=== PATIENT | male | born 1945 | race Caucasian/White ===

== ENCOUNTER → 2016-05-12 | Outpatient (CLI) | payer BC ==
[~2016-05-12] MED LIST: ALLEREST; CMDUNK; GLCPUNK; HYDUNK; LPRUNK; LPTUNK; UNABLE; VASORETIC; [UNRECOGNIZED DRUG - OTHER]
[2016-05-12 15:32] LABS: BLOOD UREA NITROGEN 14 mg/dl (7-18); BUN/CREATININE RATIO 15.8 (10-20); CARBON DIOXIDE 30 mmol/L (21-32); CHLORIDE 102 mmol/L (98-107); GLUCOSE 160 mg/dl (70-99); SODIUM 141 mmol/L (136-145)
[2016-05-13 06:09] LABS: ESTIMATED AVERAGE GLUCOSE 171 mg/dl; HA1C FLAG Normal (Normal)
== END | disposition home or self-care (01) ==
LOC: C.LABBC 12:25
PROVIDERS: ATTEND Internal Medicine
DX: E11.65 Type 2 diabetes mellitus with hyperglycemia (principal)

== ENCOUNTER → 2016-07-14 | Outpatient (CLI) | payer BC ==
[2016-07-14 16:55] LABS: CHOLESTEROL/HDL RATIO 3.3
== END | disposition home or self-care (01) ==
LOC: C.LABBC 13:29
PROVIDERS: ATTEND Internal Medicine Cardiovascular Disease
DX: E78.5 Hyperlipidemia, unspecified (principal)

== ENCOUNTER → 2016-12-02 | Outpatient (CLI) | payer BC ==
[2016-12-02 17:21] LABS: BLOOD UREA NITROGEN 15 mg/dl (7-18); BUN/CREATININE RATIO 18.7 (10-20); CALCIUM 9.3 mg/dl (8.5-10.1); CARBON DIOXIDE 30 mmol/L (21-32); CHLORIDE 102 mmol/L (98-107); CREATININE 0.82 mg/dl (0.60-1.40); GLUCOSE 132 mg/dl (70-99); POTASSIUM 4.1 mmol/L (3.5-5.1); SODIUM 139 mmol/L (136-145)
[2016-12-03 06:45] LABS: ESTIMATED AVERAGE GLUCOSE 180 mg/dl; HA1C FLAG Normal (Normal)
== END | disposition home or self-care (01) ==
LOC: C.LABBC 15:32
PROVIDERS: ATTEND Internal Medicine
DX: E11.65 Type 2 diabetes mellitus with hyperglycemia (principal); I10 Essential (primary) hypertension; N20.0 Calculus of kidney

== ENCOUNTER 2022-05-30 06:19 | Observation (INO) ==
--- NOTE | 2022-04-23 16:13 | PAT Medication Instructions ---
Medication Instructions Date of Service April 23, 2022 Home Medications Medication Instructions Recorded apixaban 5 mg tablet 5 mg PO BID #180 tabs 11/06/21 sacubitril 49 mg-valsartan 51 mg 1 tab PO BID #180 tabs 11/11/21 tablet (Entresto) pen needle, diabetic 32 gauge x #200 ea 03/04/22 5/32" (BD Ultra-Fine [place] Pen Needle) insulin degludec 100 unit/mL (3 30 unit (0.3 mL) subcut DAILY #30 04/01/22 mL) subcutaneous pen (Tresiba mL FlexTouch U-100 insulin) aspirin 81 mg chewable tablet (Aspirin Childrens) 81 mg PO QDL furosemide 20 mg tablet (Lasix) 40 mg PO QDL apixaban 5 mg tablet 5 mg PO BID sacubitril 49 mg-valsartan 51 mg tablet (Entresto) 1 tab PO BID pen needle, diabetic 32 gauge x 5/32" (BD Ultra-Fine [place] Pen Needle) triamcinolone acetonide 0.1 % topical ointment 1 applic topical DAILY PRN insulin degludec 100 unit/mL (3 mL) subcutaneous pen (Tresiba FlexTouch U-100 insulin) 30 unit (0.3 mL) subcut DAILY acetaminophen 325 mg tablet 325 mg PO QID PRN atorvastatin 40 mg tablet 40 mg PO QDL insulin glargine U-300 conc 300 unit/mL (1.5 mL) subcutaneous pen (Toujeo SoloStar U-300 Insulin) 18 unit subcut QDL liraglutide 0.6 mg/0.1 mL (18 mg/3 mL) subcutaneous pen injector (Victoza 3-Fady) 1.8 mg subcut QDL metoprolol succinate 100 mg tablet,extended release 24 hr (Toprol XL) 100 mg PO QDL Continue as directed atorvastatin 40 mg tablet 40 mg PO QDL metoprolol succinate 100 mg tablet,extended release 24 hr (Toprol XL) 100 mg PO QDL ASK your prescriber and surgeon aspirin 81 mg chewable tablet (Aspirin Childrens) 81 mg PO QDL apixaban 5 mg tablet 5 mg PO BID(in order for spinal or epidural anesthesia, Eliquis needs to be stopped 72 hours/3 days before surgery. Please check if okay with doctor that prescribes this to you) STOP taking 24 hours before surgery triamcinolone acetonide 0.1 % topical ointment 1 applic topical DAILY PRN DO NOT take the morning of surgery furosemide 20 mg tablet (Lasix) 40 mg PO QDL sacubitril 49 mg-valsartan 51 mg tablet (Entresto) 1 tab PO BID liraglutide 0.6 mg/0.1 mL (18 mg/3 mL) subcutaneous pen injector (Victoza 3-Fady) 1.8 mg subcut QDL multivitamin 1 tab PO QDL Take morning of surgery With a small sip of water, OTHERWISE NOTHING TO EAT OR DRINK AFTER MIDNIGHT: acetaminophen 325 mg tablet 325 mg PO QID PRN(if needed) Take evening before surgery acetaminophen 325 mg tablet 325 mg PO QID PRN(if needed) Insulin Dependent Diabetic Patients * Test your blood sugar the morning of surgery * If Blood Sugar is GREATER THAN 150, take HALF of your regular dose of: * If Blood Sugar is LESS THAN 150, DO NOT TAKE ANY: Other Notes If you have any questions please call us at [phone] or [phone] or [phone] or [phone]
--- NOTE | 2022-04-29 14:17 | Anesthesiology Consultation ---
Date of Service April 29, 2022 Assessment & Plan (1) Pre-op evaluation: Plan - awaiting [facility] neurology response to optimization form. - neurology consultation 02/2022 with recommendation for referral to stroke clinic for microhemorrhages, and single fiber EMG for further work-up. Case discussed in detail with Dr. Brown who advised patient to have neurology clearance prior to surgery. Optimization form completed, patient and surgeon's office made aware. - check BSG am DOS. - cardiology 04/28/22: "...CAD (coronary artery disease)-- Status post 3V CABG 04/2021 (STOCK to LAD, SVG to ramus, OM). Small RCA with mid BOARD CERTIFIED ARTS THERAPIST not bypassed. ICM/HFrEFEF 30-35% 07/2021. Permanent atrial fibrillationrate controlled, on Eliquis. Post surgical left atrial appendage clip. Moderate mitral regurgitation. Type 2 diabeteson insulin, GLP-1. Chronic venous insufficiency/venous ulcersleft GSV reflux--venaseal if recurrent ulcers...Stable from a cardiac standpoint. No recurrent anginal symptoms. No congestion on exam and appears well compensated. Lower extremity edema much improved. Long-term we discussed further optimizing heart failure regimen. He is somewhat more agreeable to adding additional medications. Recommend starting SGLT2, he wants to discuss further with endocrinology. We also again discussed starting MRA which will defer to after upcoming surgery. Patient is planning to undergo right total hip replacement in the near future with Dr. Mancia. Currently no active cardiac conditions. His risk for perioperative cardiac events is elevated but functional capacity moderate. Feel we can proceed with planned orthopedic surgery without additional cardiac testing. Okay to hold Eliquis for 72 hours prior to procedure and resume when safe from a surgical standpoint. Continue current Toprol-XL, Entresto in perioperative setting. Target euvolemia/net even fluid balance during perioperative course..." - neurology 02/19/22: "...s/p CABG (2021)...seronegative MG...denies noticing any recent muscle bulk loss...no clear fatigable weakness...patient does not believe that weakness is generally worse at the end of the day...denies symptoms suggestive of dysphagia, poor saliva control, dysarthria/dysphonia, impaired mastication, facial weakness/droop...no neuromuscular respiratory weakness symptoms, particularly orthopnea> dyspnea. Pseudobular affect is absent...does not report symptoms referable to bowel or bladder dyscontrol or syncope/presyncope/orthostatic intolerance...Mestinon with severe se for 2-3 weeks, ick with vomiting...never to retry mestinon...not typical for OMG but will further eval with SFE...refer to stroke clinic...and reported microhemorrhages while on AC + asa..." - Outpatient joint assessment: Patient is currently scheduled for inpatient pathway. If re-evaluated pending system levels during current pandemic/surgeon requests outpatient pathway, patient is not recommended candidate for outpatient joint program from anesthesia standpoint. Chart Review Chart Review: Pending: Refer to Additional Notes / Consult section and Patient seen in Pre Admission Testing Teaching & Discussion Pre-Anesthesia Teaching/Discussion Notes: Instructed NPO after midnight before surgery, except medications with 15 cc of water. Medication instructions provided according to the PAT guidelines. History Surgery Operation Date: 05/16/22 08:50 Proposed Procedures p Right Total Hip Arthroplasty - Howard Mancia MD Height/Weight Height: 5 ft 10 in Weight: 103.3 kg Allergies Allergy/AdvReac Type Severity Reaction Status Date / Time pyridostigmine Allergy Mild Vomiting Verified 04/28/22 14:30 Medications Home Medications Medication Instructions Recorded Confirmed Last Taken aspirin 81 mg chewable tablet 81 mg PO QDL 04/30/21 04/28/22 Unknown (Aspirin Childrens) furosemide 20 mg tablet (Lasix) 40 mg PO QDL 04/30/21 04/28/22 Unknown triamcinolone acetonide 0.1 % 1 applic topical DAILY PRN ud 03/04/22 04/28/22 Unknown topical ointment insulin degludec 100 unit/mL (3 30 unit (0.3 mL) subcut DAILY #30 04/01/22 04/23/22 Unknown mL) subcutaneous pen (Tresiba mL FlexTouch U-100 insulin) acetaminophen 325 mg tablet 325 mg PO QID PRN Pain 04/23/22 04/28/22 Unknown atorvastatin 40 mg tablet 40 mg PO QDL 04/23/22 04/28/22 Unknown insulin glargine U-300 conc 300 18 unit subcut QDL 04/23/22 04/28/22 Unknown unit/mL (1.5 mL) subcutaneous pen (Toujeo SoloStar U-300 Insulin) liraglutide 0.6 mg/0.1 mL (18 mg/3 1.8 mg subcut QDL 04/23/22 04/28/22 Unknown mL) subcutaneous pen injector (Victoza 3-Fady) metoprolol succinate 100 mg 100 mg PO QDL 04/23/22 04/28/22 Unknown tablet,extended release 24 hr (Toprol XL) multivitamin 1 tab PO QDL 04/23/22 04/28/22 Unknown apixaban 5 mg tablet 5 mg PO BID #60 tabs 04/29/22 04/29/22 Unknown pen needle, diabetic 32 gauge x #200 ea 04/29/22 04/29/22 Unknown " (BD Ultra-Fine Shagufta Pen Needle) sacubitril 49 mg-valsartan 51 mg 1 tab PO BID #180 tabs 04/29/22 04/29/22 Unknown tablet (Entresto) Additional Notes: *Pt is completing Toujeo supplies prior to starting Tresiba. He states will still be using Toujeo up to surgery. Past Medical History Medical History (Updated 04/30/22 @ 08:35 by Kristyn Byrd PA-C) Atrial fibrillation CAD (coronary artery disease) s/p CABG x3 with IMMANUEL clip (04/2021) Follows with Dr. Hagan Diabetic retinopathy Eye problem Pt c/o ongoing issue with his vision. states he's been worked up for myesthenia gravis & 4th nerve palsy but no official diagnosis GERD (gastroesophageal reflux disease) rare, stable per pt History of blood transfusion 2021 History of rectal abscess > 20 yrs ago Hypertension controlled, stable per pt Ischemic cardiomyopathy EF 30-35% Pulmonary hypertension mild, PASP 45-50 mmHg Sleep apnea CPAP-compliant Type 2 diabetes mellitus IDDM Venous stasis ulcer BLLE (hx) - [place] wound clinic in past 2021 Patient denies h/o stroke, seizures, heart attack, or blood clots. Exercise / Class Metabolic Activity II 4-5 Yardwork/Stairs/Walk up hill (denies chest discomfort or shortness of breath with 1 FOS) Past Family History Family History Father Prostate cancer Myocardial infarction Coronary arteriosclerosis Other Family history non-contributory No family history of adverse response to anesthesia Denies family history of Colon cancer Ovarian cancer Breast cancer Past Surgical History Surgical History (Updated 04/29/22 @ 14:33 by Kristyn Byrd PA-C) History of cardiac catheterization 02/2021 [place] > CABG History of coronary artery bypass graft x 3 04/22/2021 History of incision and drainage rectal abscess S/P tonsillectomy Past Anesthesia History No Hx of Anesthesia Complications and No Family Hx of Anesthesia Complications History of PONV No Hx of PONV and No Hx of Motion Sickness Social History Smoking Status: Never smoker Do You Dip or Chew Tobacco: No Hx Alcohol Use: Yes alcohol intake frequency: holidays/special occasions only Hx Substance Use: No substance use type: does not use Review of Systems Occasional palpitations with afib, denies associated chest discomfort, shortness of breath, dizziness, or lightheadedness. Denies change or worsening. Patient denies chest pain, shortness of breath, dyspnea on exertion, fever, chills, cough, or wheezing. Physical Exam Vital Signs Vitals BP 133/80 P 81 TEMP 98.4 SP02 100% on RA RESP 17 Physical Full cervical extension range of motion without pain TMD 3.5 finger breadths Mallampati Score 2 Dentition: multiple caps/crowns and implant upper right side; denies chipped or loose teeth, bridges Lungs: normal respiratory effort. Clear throughout to auscultation, no adventitious breath sounds Cardiac: regular rate and rhythm, no murmurs noted Carotid arteries: negative bruit bilat Lab Results Anesthesia Preop Results Results Anesthesia Widget: WBC 5.10 K/ul (4.8-10.8) 04/29/22 Hgb 12.8 g/dl (14.0-18.0) L 04/29/22 Hct 36.6 % (42.0-52.0) L 04/29/22 Plt 148 K/uL (130-400) 04/29/22 Na 139 mmol/L (136-145) 04/29/22 K 4.2 mmol/L (3.5-5.1) 04/29/22 Cl 104 mmol/L (98-107) 04/29/22 CO2 30 mmol/L (21-32) 04/29/22 BUN 23 mg/dl (6-23) 04/29/22 Creat 0.92 mg/dl (0.6-1.4) 04/29/22 Glucose Level 139 mg/dl (70-99(Fasting)) H 04/29/22 PT 12.0 Seconds (9.0-12.0) 04/29/22 PTT 31.7 Seconds (21.0-31.0) H 04/29/22 INR 1.1 (0.9-1.1) 04/29/22 HA1c 6.1 % (4.5-5.6) H 04/29/22 Blood Type O Positive 04/29/22 Antibody Screen NEGATIVE 04/29/22 Testing Electrocardiogram Date: 04/29/22 Afib, rate 87 bpm Incomplete RBBB Nonspecific ST abnormality Chest X-Ray Date: 04/29/22 Cardiac silhouette is enlarged. Prior median sternotomy with CABG. Left atrial exclusion device. Moderate right hemidiaphragmatic elevation is unchanged. No pneumothorax, pleural effusion, airspace consolidation or pulmonary edema. Spondylitic spurring of the spine. IMPRESSION: No acute process. Echocardiogram EF 30-35% Severe inferior, septal wall and anterior apical hypokinesis. Remaining segments mildly hypokinetic Borderline dilated RV Moderate mitral regurgitation Mild pulmonary hypertension, PASP 45-50 mmHg LA severely dilated Cardiac Catheterization Date: 03/04/21 LM -large caliber, no significant disease LAD -medium caliber, 100% chronic mid occlusion. Distal LAD fills via right to left collaterals. Small D1 with mild diffuse disease. Medium bifurcating D2 with 95% ostial stenosis Circumflex -large caliber, codominant, 40% mid segment stenosis, 60 to 70% disease in small distal segment. Small OM2 with 90% ostial stenosis. Medium OM 3 with 80% proximal stenosis. RCA -small caliber, codominant, 100% chronic mid segment occlusion. RV branch slowly fills the bridging collaterals. Distal RCA fills faintly via [id number]-pe-evyck collaterals. Early acute marginal provides right to left collaterals to distal LAD 1. Severe multivessel coronary artery disease -100% chronic mid LAD occlusion. Distal LAD fills via right to left colla terals. 95% ostial D2. 40% mid, 70% distal circumflex. Small OM2 90% ostial, medium OM3 80% proximal. Small, codominant RCA 100% mid chronic occlusion 2. Preserved cardiac output 3. Mild pulmonary hypertension (post capillary) 4. Elevated left-sided filling pressures (improved with antihypertensives, rate-control) With multivessel disease, diabetes, LV dysfunction recommend evaluation for CABG Other Testing MRI brain 02/19/22 No acute intracranial findings Mild senescent changes with parenchymal volume loss and presumed chronic microvascular ischemia Several microhemorrhages in the right cerebellar hemisphere and right temporal lobe, potentially sequela of coagulopathy, prior trauma or less likely cavernous malformation or cerebral amyloid angiopathy Prominent nodular gradient susceptibility in the right ambient cistern along the expected course of the right trochlea nerve, 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
--- NOTE | 2022-05-23 18:48 | History and Physical Report ---
DATE OF ADMISSION: 05/30/2022 CHIEF COMPLAINT: Right hip pain and discomfort and stiffness. HISTORY OF PRESENT ILLNESS: The patient is a 76-year-old gentleman who presents for surgical treatme nt of his right hip. He has got multiple medical comorbidities. He has a several year history of in creasing right hip pain and discomfort and stiffness and having more and more trouble getting around. No known injury. He describes lateral hip pain, groin pain, thigh pain radiating down the medial s emmy of his knee. He has taken multiple different meds without much relief. It is starting to really limit his ability to walk and getting around. He would like to have his hip fixed. He was previous ly scheduled, but had to be canceled due to the need for neurological clearance. He has seen both ca rdiology and neurology and cleared for surgery. PAST MEDICAL HISTORY: Significant for: 1. Coronary artery disease, status post CABG a year ago. 2. Atrial fibrillation. 3. Hypertension. 4. Diabetes. PAST SURGICAL HISTORY: Includes: 1. Coronary artery disease and CABG a year ago done at [facility] in [place]. 2. Tonsillectomy. 3. Unspecified incision and drainage. ALLERGIES: PYRIDOSTIGMINE. CURRENT MEDICATIONS: Include: 1. Eliquis. 2. Aspirin. 3. Atorvastatin. 4. Lasix. 5. Insulin. 6. Victoza. 7. Metoprolol. 8. Entresto. 9. Topical steroids. SOCIAL HISTORY: A 76-year-old male. He is . Does not smoke. FAMILY HISTORY: Significant for diabetes. REVIEW OF SYSTEMS: Significant for some atrial fibrillation as well as coronary artery disease, stat us post grafting. No current chest pain or shortness of breath. No history of DVT or PE. He is on Eliquis. PHYSICAL EXAMINATION: GENERAL: Shows a pleasant, elderly male. Looks to be in reasonably good health. HEENT: Benign. NECK: Supple. No lymphadenopathy. LUNGS: Clear to auscultation. HEART: Has a regular rate and rhythm. ABDOMEN: Soft, nontender, nondistended. EXTREMITIES: Grossly neurovascularly intact except as follows: Examination of the right hip reveale d patient walks with a markedly antalgic gait. Walks with a cane. Walks with the foot externally ro tated. He is about a 0.5 cm short on the right side compared to the left. He has got pain with any type of hip motion. Very limited hip motion internally. Negative straight leg raise. No knee effus ion. He is neurologically intact. X-RAYS: X-rays reveal advanced right hip DJD. He has got complete loss of superior joint space. He has got flattening of the femoral head with cystic changes on both sides of the joint. X-rays of the right knee revealed mild knee arthritis. ASSESSMENT AND PLAN: A 76-year-old male with multiple medical comorbidities including coronary arter y disease, status post coronary artery bypass grafting a year ago at [facility], sleep apnea, hyperten urszula, diabetes with advanced right hip degenerative joint disease. He has failed conservative measur es and would like to have his hip replaced. The patient has been seen by both cardiology and neurology and cleared for surgery. We are going to take him to the operating room and do right total hip replacement. The risks and benefits of procedu re were explained and he understands. He will hold his Eliquis 3 days preoperatively. We will begin Eliquis 24 hours postoperatively at a lower level. We will use insulin sliding scale coverage for h is diabetes. He is planning to be discharged to home and do outpatient therapy. Job ID: [id number]
[~2022-05-30 06:19] MED LIST changes: +ACETAMINOPHEN 500 MG TAB PO SCH; -ALLEREST; -CMDUNK; +CeleBREX 200 MG CAP PO SCH; +FAMOTIDINE 20 MG TAB PO SCH; -GLCPUNK; -HYDUNK; -LPRUNK; -LPTUNK; +LR 500ML BOLUS, THEN 15ML/HR IV SCH; +LR 60ML/HR IV SCH; +METOCLOPRAMIDE HCL 10 MG TABLET PO SCH; +TRANEXAMIC ACID 1,000 MG **IV Pre-op IV SCH; -UNABLE; -VASORETIC; -[UNRECOGNIZED DRUG - OTHER]; +ceFAZolin 2000MG 2,000 MG/15 ML SYR IV SCH
[2022-05-30] MEDS ORDERED: ROPIVACAINE 0.5% 5 MG/ML 30 ML VIAL ONE (06:26)
[2022-05-30] MEDS ORDERED: BUPIVACAINE 0.5 % 5 MG/1 ML PF 10ML VIAL ONE (06:26)
--- NOTE | 2022-05-30 06:52 | History & Physical Bridge Note ---
Date of Service May 30, 2022 History & Physical Bridge Note I have examined the patient, reviewed the History & Physical and in the interval since the performance of the History & Physical I have noted the following changes of clinical significance: no changes noted
[2022-05-30] MEDS ORDERED: PROPOFOL IV EMULSION 10 MG/ML 20 ML VIAL IV ONE (07:38)
[2022-05-30] MEDS ORDERED: ONDANSETRON INJ 2 MG/ML 2 ML VIAL ONE (07:38)
[2022-05-30] MEDS ORDERED: fentaNYL citrate PF 100 MCG/2 ML VIAL ONE (07:38)
[2022-05-30] MEDS ORDERED: DEXAMETHASONE SOD INJ 4 MG/ML VIAL ONE (07:38)
[2022-05-30] MEDS ORDERED: MIDAZOLAM HCL 1 MG/ML 2ML VIAL ONE (07:39)
[2022-05-30] MEDS ORDERED: LIDOCAINE 2% MPF LOCAL 5 ML VIAL ONE (07:39)
[2022-05-30] MEDS ORDERED: ePHEDrine sulfate 50 MG/ML SYR ONE (07:40)
--- NOTE | 2022-05-30 07:44 | Anesthesiology Consultation ---
Date of Service May 30, 2022 Assessment & Plan Consults Requested medical & cardiac Pulmonary ASA ASA3 Proposed Anesthesia Anesthesia Type: MAC Spinal Additional Notes refused block History Surgery Operation Date: 05/16/22 10:40 Proposed Procedures p Right Total Hip Arthroplasty - Howard Mancia MD Operation Date: 05/30/22 08:50 Proposed Procedures p Right Total Hip Arthroplasty - Howard Mancia MD Height/Weight Height: 5 ft 10 in Weight: 100.8 kg Allergies Allergy/AdvReac Type Severity Reaction Status Date / Time pyridostigmine Allergy Mild Vomiting Verified 05/30/22 07:06 Medications Home Medications Medication Instructions Recorded Confirmed Last Taken aspirin 81 mg chewable tablet 81 mg PO QDL 04/30/21 05/30/22 05/29/22 17:00 (Aspirin Childrens) furosemide 20 mg tablet (Lasix) 40 mg PO QDL 04/30/21 05/30/22 05/29/22 10:00 triamcinolone acetonide 0.1 % 1 applic topical DAILY PRN ud 03/04/22 05/30/22 Unknown topical ointment acetaminophen 325 mg tablet 325 mg PO QID PRN Pain 04/23/22 05/30/22 05/28/22 atorvastatin 40 mg tablet 40 mg PO QDL 04/23/22 05/30/22 05/29/22 17:00 insulin glargine U-300 conc 300 18 unit subcut QDL 04/23/22 05/30/22 05/29/22 17:00 unit/mL (1.5 mL) subcutaneous pen (T[place] SoloStar U-300 Insulin) liraglutide 0.6 mg/0.1 mL (18 mg/3 1.2 mg subcut QDL 04/23/22 05/30/22 05/29/22 17:00 mL) subcutaneous pen injector (Victoza 3-Fady) metoprolol succinate 100 mg 100 mg PO QDL 04/23/22 05/30/22 05/29/22 17:00 tablet,extended release 24 hr (Toprol XL) multivitamin 1 tab PO QDL 04/23/22 05/30/22 05/29/22 17:00 pen needle, diabetic 32 gauge x #200 ea 04/29/22 05/20/22 Unknown " (BD Ultra-Fine Shagufta Pen Needle) sacubitril 49 mg-valsartan 51 mg 1 tab PO BID #180 tabs 04/29/22 05/30/22 05/29/22 17:00 tablet (Entresto) acetaminophen 500 mg tablet 1,000 mg PO TID Pain 30 days #180 05/14/22 05/30/22 Unknown (Tylenol Extra Strength) tabs cefadroxil 500 mg capsule 500 mg PO BID 7 days #14 caps 05/14/22 05/30/22 Unknown ondansetron 4 mg disintegrating 4 mg PO Q8 PRN nausea #20 tabs 05/14/22 05/30/22 Unknown tablet sennosides 8.6 mg tablet (Senokot) 8.6 mg PO BID prevent constipation 05/14/22 05/30/22 Unknown 14 days #28 tabs tamsulosin 0.4 mg capsule (Flomax) 0.4 mg PO DAILY #7 caps 05/14/22 05/30/22 05/29/22 19:00 tramadol 50 mg tablet 50 - 100 mg PO Q6 PRN pain #40 tabs 05/14/22 05/30/22 Unknown apixaban 5 mg tablet (Eliquis) 5 mg PO BID 05/30/22 05/30/22 05/27/22 Active Medications Generic Name Dose Route Start Last Admin Trade Name Rodriguezq PRN Reason Stop Dose Admin Acetaminophen 1,000 mg 05/30/22 06:00 05/30/22 07:29 Acetaminophen 500 Mg Tab PO 05/30/22 18:00 1,000 mg PREOP ROSE Administration Celecoxib 200 mg 05/30/22 06:00 05/30/22 07:29 Celebrex 200 Mg Cap PO 05/30/22 18:00 200 mg PREOP ROSE Administration Famotidine 20 mg 05/30/22 06:00 05/30/22 07:29 Famotidine 20 Mg Tab PO 05/30/22 18:00 20 mg PREOP ROSE Administration Lactated Ringer's 1,000 mls @ 15 mls/hr 05/30/22 06:00 05/30/22 07:19 Lr IV 05/30/22 18:00 15 mls/hr .Q24H ROSE Administration Lactated Ringer's 1,000 mls @ 60 mls/hr 05/30/22 06:00 05/30/22 07:19 Lr IV 05/30/22 22:39 Not Given .[id number] ROSE Metoclopramide HCl 10 mg 05/30/22 06:00 05/30/22 07:30 Metoclopramide Hcl 10 Mg Tablet PO 05/30/22 18:00 10 mg PREOP ROSE Administration NPO Date Last Intake of Fluids: 05/29/22 Time Last Intake of Fluids: 22:00 Date Last Intake of Solids: 05/29/22 Time Last Intake of Solids: 22:00 Past Medical History Medical History Atrial fibrillation CAD (coronary artery disease) s/p CABG x3 with IMMANUEL clip (04/2021) Follows with Dr. Hagan Diabetic retinopathy Eye problem Pt c/o ongoing issue with his vision. states he's been worked up for myesthenia gravis & 4th nerve palsy but no official diagnosis GERD (gastroesophageal reflux disease) rare, stable per pt History of blood transfusion 2021 History of rectal abscess > 20 yrs ago Hypertension controlled, stable per pt Ischemic cardiomyopathy EF 30-35% Pulmonary hypertension mild, PASP 45-50 mmHg Sleep apnea CPAP-compliant Type 2 diabetes mellitus IDDM Venous stasis ulcer BLLE (hx) - [place] [facility] in past 2021 Past Family History Family History Father Prostate cancer Myocardial infarction Coronary arteriosclerosis Other Family history non-contributory No family history of adverse response to anesthesia Denies family history of Colon cancer Ovarian cancer Breast cancer Past Surgical History Surgical History History of cardiac catheterization 02/2021 [place] > CABG History of coronary artery bypass graft x 3 04/22/2021 History of incision and drainage rectal abscess S/P tonsillectomy Social History Smoking Status: Never smoker Do You Dip or Chew Tobacco: No Hx Alcohol Use: Yes alcohol intake frequency: holidays/special occasions only Hx Substance Use: No substance use type: does not use Physical Exam Vital Signs Last Vital Signs Temp 37.0 C 05/30/22 07:20 Pulse 103 H 05/30/22 07:20 Resp 18 05/30/22 07:20 BP 132/82 05/30/22 07:20 Pulse Ox 98 05/30/22 07:20 O2 Del Method CPAP 05/30/22 07:20 Neck normal visual inspection Respiratory normal respiratory effort; no respiratory distress Auscultation: lungs clear to auscultation bilaterally Cardiovascular Rate/Rhythm: regular rate and regular rhythm Psychiatric Orientation: alert and oriented x 3 Testing Laboratory Results 05/30/22 06:56 POC Glucose 122 H
[2022-05-30] MEDS ORDERED: ONDANSETRON INJ 2 MG/ML 2 ML VIAL IV PRN ×2 (07:45→14:17)
[2022-05-30] MEDS ORDERED: LABETALOL HCL IV 5 MG/ML 20ML IV PRN (07:45)
[2022-05-30] MEDS ORDERED: fentaNYL citrate PF 100 MCG/2 ML VIAL IV PRN (07:45)
[2022-05-30] MEDS ORDERED: ePHEDrine sulfate 50 MG/ML AMP IV PRN ×2 (07:45→12:37)
[2022-05-30] MEDS ORDERED: ALBUTEROL 0.083% NEBU SOLN 3 ML VIAL INH PRN (07:45)
[2022-05-30] MEDS ORDERED: ACETAMINOPHEN 1,000 MG/100 ML VIAL IV STA (07:45)
[2022-05-30] MEDS ORDERED: ATROPINE SULFATE 0.1 MG/ML 10ML SYR IV PRN ×2 (07:45→12:37)
[2022-05-30] MEDS ORDERED: BUPIVACAINE/EPINEPHRINE 0.5% MPF 1:200,000 30 ML VIAL ONE (08:53)
[2022-05-30] MEDS ORDERED: ROCURONIUM BROMIDE 10 MG/ML 5 ML VIAL IV ONE ×2 (09:09→09:31)
[2022-05-30] MEDS ORDERED: PHENYLEPHRINE 100MCG/ML 5ML SYR ONE (09:28)
[2022-05-30] MEDS ORDERED: PHENYLEPHRINE HCL 10 MG/ML VIAL ONE (09:37)
[2022-05-30] MEDS ORDERED: SUGAMMADEX SODIUM 200 MG/2 ML VIAL IV ONE (09:46)
[2022-05-30] MEDS ORDERED: MoRPHine SULFATE 2 MG/ML CARP ONE (10:24)
[2022-05-30] MEDS ORDERED: ePHEDrine sulfate 50 MG/ML AMP ONE (10:47)
--- NOTE | 2022-05-30 10:55 | Anesthesiology Progress Note ---
Date of Service May 30, 2022 Anesthesia Post Procedure Vital Signs Vital Signs: Temp Pulse Resp BP Pulse Ox O2 Del Method 05/30/22 07:20 CPAP 05/30/22 07:20 37.0 C 103 H 18 132/82 98 Room Air Transfer of Care Handoff Completed per policy Notes Mental Status: alert / awake / arousable Patient Amnestic to Procedure: Yes Nausea / Vomiting: adequately controlled Pain: adequately controlled Airway Patency, RR, SpO2: stable & adequate BP & HR: stable & adequate Hydration State: stable & adequate Anesthetic Complications: no major complications apparent and Pt Satisfied with anesthetic care
--- NOTE | 2022-05-30 11:06 | Operative Report ---
PG Post Operative Report Pre & Post Diagnosis Operation Date: 05/30/22 08:50 Pre-Op Diagnosis: Right Hip Degenerative Joint Disease Post-Op Diagnosis: Right Hip Degenerative Joint Disease I identified the patient and participated in the time-out.: Yes Procedure Operation Date: 05/30/22 08:50 Actual Procedures p Right Total Hip Arthroplasty(Right) - Howard Mancia MD Surgeon Howard Mancia MD Shampoo Assistant Neal Ortiz PA-C Estimated Blood Loss 200 Findings Consistent with Post-Op Diagnosis Operative findings revealed an extremely stiff hip. He had about a 20 to 25 degree external rotation contracture of the hip joint. He had grade 4 [id number] disease of the femoral head and acetabulum. Pretty significant anterior acetabular osteophyte. Fluids 1400 cc Specimens Right femoral head sent for pathology Anesthesia Type General Complications none Disposition Accompanied Patient To Recovery: No Indications Patient is a 76-year-old gent with multiple medical comorbidities has had a several year history of increasing right knee pain discomfort and stiffness. He failed conservative measures. X-rays show advanced right hip DJD. He underwent medical optimization and then elected to proceed with total hip arthroplasty. Description of Procedure Operative implants consist of: 1 Biomet G7 size 54 mm acetabular shell. 2. 6.5 cancellous acetabular screws 1 of 35 mm length and 1 of 30 mm length. 3. Nora eliminator. 4. Highly cross-linked polyethylene liner with a 54 mm outer diameter 36 mm inner diameter and a soto placed inferior and posterior. 5. DePuy Karaya I size 9 short neck 125 degree angle femoral stem. 6. +1.5/36 mm ceramic articular ball. The patient was taken the operating, identified, and placed on the operating table supine position protectors were properly padded. IV antibiotics tried by anesthesia team. A general anesthetic was implemented. Patient was then placed in the left lateral cubitus position. An axillary roll was placed. A Stulberg hip positioner used for positioning. Right hip and leg were then prepped and draped in usual sterile fashion. A posterior lateral puncture of the right hip was then performed through a curvilinear incision centered over the greater trochanter. Sharp dissection was carried through subcutaneous tissue down below the IT band gluteal fascia. IT band gluteal fascia incised longitudinally in line with skin incision. The underlying greater bursa was excised. The piriformis and external rotators along with the posterior hip joint capsule were then released from the posterior aspect the hip as a single layer. The hip was internally rotated and dislocated. A femoral neck osteotomy cut was made with Final Cut about 7 to 8 mm above the lesser trochanter. Femoral head was removed and sent for pathology. The femur was retracted anteriorly. Attention drawn the acetabulum. The acetabular labrum was excised. The pulmonary fat was excised. Sequential reaming the acetabular was then performed again with a size 45 and progressing up to 53. I reamed a little bit with a 54 reamer in line placed a 54 mm Biomet G7 acetabular shell in about 20 degrees of anteversion and 40 degrees lateral opening. It was fixed with two 6.5 cancellous acetabular screws. A trial liner was placed. Some anterior osteophytes removed. Attention drawn the femur. The proximal femur was entered with a [id number] cutter followed by canal finder. I then broached begin the size 8 and progressing up to 9. We had excellent fit and 9 and I could not even quite get this down. I did recut the neck in order to shorten a little bit is is soft tissues were little tight initially. The hip was then trialed. We trialed the standard stem but it was just too tight and too long. We elected to use a short neck 125 degree angle stem. With this in place O +1.5 articular ball was placed. Hip was located and found to be stable. I spent quite a bit of time assessing his hip. He still had some significant impingement anteriorly. I examined anteriorly and all osteophytes is been removed. It seemed like was just soft tissue. Leg lengths seemed equal. Soft tissue tension otherwise seemed appropriate EXTR. His hip was fully stable in full extension and external rotation flexion to about 90 degrees internal Tatian about 30 to 35 degrees. There would did seem to be some levering out. We will search for osteophytes and did not find any. I wanted to increase his neck length to decrease impingement but his soft tissue tensions were already a little on the tight side. We elect to place these implants. Nupathe all trial implants were removed. An apex hole limiter was placed. Highly cross-linked polyethylene liner with a soto placed inferior and posterior replaced to maximize his stability in flexion. A size 925 degree angle short neck femoral stem was impacted in position. A +1.5/36 mm ceramic articular ball was placed. Hip was located once again found to be stable. Attention drawn to closing. Wound was irrigated coconuts of pulsatile lavage solution. I did inject locally with 60 cc of half percent Marcaine with epinephrine. Posterior capsule and external rotators were repaired through drill holes in the posterior trochanter as a single layer with #2 Tycron suture. The IT band gluteal fascia then closed in 1 PDS suture in running fashion for subcutaneous tissue then closed in 2 layers with a deep layer #1 Vicryl suture and subcutaneous tissues with 2-0 Dexon suture in a buried interrupted fashion. Skin was closed skin vicki. Leg was then cleaned and dried and sterile dressed with Xeroform, 4 x 4's, sterile ABD pad, foam tape was applied. The patient then brought out of general anesthesia and transferred to the recovery room in stable condition. Patient tolerated the procedure well no complications. Neal Ortiz, my physician assistant manager bilingual, was present for the entire procedure. His assistance was essential and required for appropriate patient positioning, prepping and draping, surgical exposure, performing the technical details of the operation, placement the implants, closure of the wound, and placement of the sterile bandage. I attest to the content of the Intraoperative Record and any orders documented therein. Any exceptions are noted below.
[2022-05-30] MEDS ORDERED: METOPROLOL SUCC 25MG EXT REL TAB PO SCH (11:30)
--- NOTE | 2022-05-30 11:53 | XRay Report ---
XR hip 1V RT w pelvis HISTORY: 76 years-old Male IN PACU - Post Surgical right hip arthroplasty COMPARISON: Radiographs 01/22/2022 TECHNIQUE: 2 views of the right hip FINDINGS: Total joint arthroplasty demonstrates satisfactory alignment without acute fracture identified. Later al skin vicki are noted along with expected postoperative soft tissue swelling with deep tissue air . There is suggestion of additional vicki project over the mid thigh, possibly external to the teri ent. Moderate left hip osteoarthritis. IMPRESSION: Satisfactory alignment of the right hip total joint arthroplasty. ACT 112: Negative or not required by law. The above report was generated using voice recognition software. It may contain grammatical, syntax o r spelling errors. Electronically signed by: Ezra Hong M.D. 05/30/2022 11:51 AM
[2022-05-30] MEDS ORDERED: PHENYLEPHRINE/NSS 25 MG/250 ML BAG IV PRN (12:37)
[2022-05-30] MEDS ORDERED: PHENYLEPHRINE 100MCG/ML 5ML SYR IV PRN (12:37)
--- NOTE | 2022-05-30 13:03 | XRay Report ---
SINGLE VIEW CHEST CLINICAL HISTORY: Chest congestion FINDINGS: An AP, portable, upright chest radiograph is compared to study dated 04/29/2022. The examina tion is degraded by portable technique and apical lordotic positioning. The patient is status post mi dline sternotomy. Epicardial pacing leads are noted. The heart is enlarged. There is mild pulmonary v ascular congestion. There is chronic elevation of the right hemidiaphragm with bibasilar scarring/ate lectasis. No airspace consolidation or large pleural effusion is identified. No pneumothorax is seen. The skeletal structures are osteopenic. The bony thorax is grossly intact. IMPRESSION: Cardiomegaly with pulmonary vascular congestion. ACT 112: Negative or not required by law. Electronically signed by: David Giron M.D. 05/30/2022 1:02 PM
[2022-05-30 13:15] LABS: Base Excess ABG -0.4 mEq/L (-9-1.8); HCO3 ABG 25 mmol/L (19-24); Oxygen Saturation ABG 99.3 % (90-95); PCO2 ABG 42 mmHg (35-46); PO2 ABG 140 mmHg (80-95); pH ABG 7.38 (7.35-7.45)
[2022-05-30 13:19] LABS: Allen Test POS (Pos)
[2022-05-30 13:21] LABS: Hematocrit (blood only) 33.9 % (42.0-52.0); Hemoglobin 11.5 g/dl (14.0-18.0); Mean Corpuscular Hgb Conc 33.9 g/dL (32.0-36.0); Mean Corpuscular Volume 97.1 fL (80.0-100.0); Mean Platelet Volume 11.1 fL (9.4-12.4); Platelet Count 128 K/uL (130-400); RDW Coefficient of Variation 12.2 % (11.5-14.5); RDW Standard Deviation 43.6 fL (36.4-46.3); Red Blood Count 3.49 M/uL (4.70-6.10); White Blood Count 6.82 K/ul (4.8-10.8)
[2022-05-30 13:50] LABS: Troponin I High Sensitivity 14.9 pg/ml (0-20)
--- NOTE | 2022-05-30 13:50 | Anesthesiology Progress Note ---
Date of Service May 30, 2022 Anesthesia Post Procedure Vital Signs Vital Signs: Temp Pulse Pulse Resp BP Pulse Ox O2 Del Method 05/30/22 13:35 115 H 16 116/64 100 Nasal Cannula 05/30/22 13:25 122 H 14 117/54 L 97 Nasal Cannula 05/30/22 13:15 36.4 C L 113 H 16 112/71 99 Nasal Cannula 05/30/22 13:05 136 H 17 105/62 99 Nasal Cannula 05/30/22 12:45 139 H 17 85/61 L 95 Room Air 05/30/22 12:35 113 H 17 99/60 L 93 Room Air 05/30/22 13:45 36.6 C 126 H 16 102/70 100 Nasal Cannula 05/30/22 12:55 127 H 18 113/67 99 Nasal Cannula 05/30/22 12:25 143 H 16 89/60 L 96 Room Air 05/30/22 11:25 129 H 18 105/74 99 Oxymask 05/30/22 12:15 136 H 20 94/56 L 94 Room Air 05/30/22 12:05 126 H 15 95/64 L 96 Room Air 05/30/22 11:55 123 H 18 95/48 L 94 Room Air 05/30/22 11:45 127 H 19 99/67 L 94 Room Air 05/30/22 11:35 130 H 19 117/72 96 Room Air 05/30/22 11:15 128 H 19 114/67 100 Oxymask 05/30/22 11:08 36.2 C L 142 H 23 112/88 100 Oxymask 05/30/22 07:20 CPAP 05/30/22 07:20 37.0 C 103 H 18 132/82 98 Room Air O2 Flow Rate 05/30/22 13:35 2 05/30/22 13:25 2 05/30/22 13:15 2 05/30/22 13:05 2 05/30/22 12:45 05/30/22 12:35 05/30/22 13:45 2 05/30/22 12:55 2 05/30/22 12:25 05/30/22 11:25 2 05/30/22 12:15 05/30/22 12:05 05/30/22 11:55 05/30/22 11:45 05/30/22 11:35 05/30/22 11:15 5 05/30/22 11:08 5 05/30/22 07:20 05/30/22 07:20 Pain Intensity Right Hip: Pain Intensity: 4 Transfer of Care Handoff Completed per policy Notes Mental Status: alert / awake / arousable Patient Amnestic to Procedure: Yes Nausea / Vomiting: adequately controlled Pain: adequately controlled Airway Patency, RR, SpO2: stable & adequate BP & HR: stable & adequate Hydration State: stable & adequate Anesthetic Complications: no major complications apparent and Pt Satisfied with anesthetic care Notes: HR is up, consult I/M in the chart, transfer to telemetry
[2022-05-30 13:55] LABS: Calcium 8.5 mg/dl (8.6-10.3)
[2022-05-30 14:00] LABS: Calcium 8.4 mg/dl (8.6-10.3); Potassium 3.9 mmol/L (3.5-5.1)
[2022-05-30 14:06] LABS: BUN Creatinine Ratio 24.1 (10-20); Creatinine Clr Calc Pharmacy 71.4 ml/min; Est GFR (Non-African American) 67.3 ml/min
[2022-05-30] MEDS ORDERED: MAGNESIUM HYDROXIDE SUSP 30 ML UDC PO PRN (14:17)
[2022-05-30] MEDS ORDERED: HYDROmorphone INJ 0.5 MG/0.5 ML SYR IV PRN (14:17)
[2022-05-30] MEDS ORDERED: NON-FORMULARY MEDICATION (Multivitamin Tablet) PO SCH (14:17)
[2022-05-30] MEDS ORDERED: METOCLOPRAMIDE HCL INJ 5 MG/ML 2 ML VIAL IV PRN (14:17)
[2022-05-30] MEDS ORDERED: TRIAMCINOLONE ACET 0.1% OINT 15 GM TUBE TOP PRN (14:17)
[2022-05-30] MEDS ORDERED: PHARMACY GLYCEMIC MGMT CONSULT PRN (14:17)
[2022-05-30] MEDS ORDERED: NALOXONE HCL 0.4 MG/1 ML VIAL/CARP IV PRN (14:17)
[2022-05-30] MEDS ORDERED: traMADol HCL 50 MG TABLET PO PRN (14:17)
[2022-05-30] MEDS ORDERED: ACETAMINOPHEN 500 MG TAB PO SCH (14:17)
[2022-05-30] MEDS ORDERED: SODIUM CHLORIDE 0.9% 1000ML 1,000 ML IV SCH (14:17)
[2022-05-30] MEDS ORDERED: bisacodyL 10 MG SUPP PR PRN (14:17)
[2022-05-30] MEDS ORDERED: ALUMINUM/MAGNESIUM SUSP 30 ML UDC PO PRN (14:17)
[2022-05-30] MEDS ORDERED: CARBOHYDRATES FOR HYPOGLYCEMIA PO PRN (14:45)
[2022-05-30] MEDS ORDERED: GLUCAGON FOR INJ 1 MG VIAL IM PRN (14:45)
[2022-05-30] MEDS ORDERED: GLUCOSE 40% GEL 15 GM TUBE PO PRN (14:45)
[2022-05-30] MEDS ORDERED: GLUCOSE 10 TAB/TUBE PO PRN (14:45)
[2022-05-30] MEDS ORDERED: DEXTROSE 50% 50 ML SYRINGE IV PRN (14:45)
[2022-05-30] MEDS ORDERED: LANTUS PER UNIT CHARGE SC ONE (14:45)
--- NOTE | 2022-05-30 14:46 | Pharmacy Report ---
Pharmacy Glycemic Short Note 2 - Date of Service May 30, 2022 - Glycemic Short BSG Results (Last 24 hours): 05/30/22 05/30/22 05/30/22 06:56 11:10 12:49 Glucose 151 H POC Glucose 122 H 140 H 05/30/22 12:52 Glucose POC Glucose 142 H OUTPATIENT ANTIDIABETIC REGIMEN: * Toujeo 18 units SC daily w/ lunch * Victoza 1.2 mg SC daily w/ lunch HbA1c: 6.1% (04/29/22) ASSESSMENT: * DF is a 76 year old male POD #0 s/p right total hip arthroplasty * Dexamethasone 8 mg IV x 1 in OR * Well-controlled T2DM as an outpatient based on HbA1c * Preop BSG of 122 mg/dL, postop BSG of 142 mg/dL * Will give home dose of basal now postoperatively and use weight-based stress of 2 Novolog PLAN FOR INPATIENT GLYCEMIC CONTROL: * Basal insulin * Lantus 18 units SQ x 1 now, reassess in AM * Bolus insulin * NovoLog per scale ACHS or Q6hrs while NPO * Goal Range: Low 110 mg/dL - High 140 mg/dL * Correction Factor: 25 mg/dL/unit * Nutritional / Prandial insulin per carb ratio of 1 unit per 8 grams CHO consumed
--- NOTE | 2022-05-30 14:53 | Hospitalist Consultation ---
Date of Consultation May 30, 2022 Assessment & Plan (1) History of total knee arthroplasty: VTE/Pain/Bowel management per primary orthopedic team (2) Atrial fibrillation with RVR: Suspect somewhat appropriate given recent surgery. Doubtful this rate is inappropriate and causing his hypotension. Metoprolol succinate 25mg PO given by anesthesiology, will continue his usual 100mg dose once he gets to PCU. Suspect rate will improve in the next 24 hours without additional AV timothy bl ocking agents as he recovers from the surgery. Restart anticoagulation per surgery recommendations (3) Postoperative hypotension: Asymptomatic Pt reports significant hypotension at home on Entresto although he is asymptomatic at a home and here. Will hold Entresto. Does not appear to be volume deplete. (4) Chronic systolic (congestive) heart failure: Suspect mild pulmonary edema if his baseline however he is also +ve 2.5L at this point from his operation and would not continue any further IV fluids (informed Dr Mancia of such) and utilize his usual Lasix dosing starting tomorrow (5) Ischemic cardiomyopathy: Continue metoprolol succinate Will hold Entresto initially due to post operative hypotension but will try and restart prior to discharge as able. (6) Hypertension: (7) Type 2 diabetes mellitus: HbA1C 6.1 in April, no need to repeat Pharmacy on board for glycemic control with basal bolus insulin (8) Status post coronary artery bypass graft: History of Present Illness Reason for Consultation: hypotension, r.o myocardial ischemia, SVT, AF Requesting Physician: Jerrell Andrews MD Attending Physician: Howard Mancia MD History of Present Illness Eduardo Tran is a 76 year old male who POD#0 right TKA. EBL 200ml. 1400cc IV fluids during operation. Asked to see in PACU by anesthesiology due to concern for post operative hypotension. Patient lying in bed with no chest pain, shortness of breath or dizziness. Not confused. Able to have a full conversation about his operation and past medical history with any difficulty remember facts regarding his CABG and pre-operative medications. He reports his BP usually runs low at home but he denies any orthostasis or other problems when his BP measures low. Last medication change was > 1 month ago. Overall no acute concerns or questions and generally feeling well post operatively. He reports being in atrial fibrillation all the time. Because of his sleep-wake cycle he takes his "morning" pills around 5pm and "evening pills" around 1-3am. He last took metoprolol succinate around 5pm yesterday. he is currently not in any pain. He was given IV fluids bolus 500ml due to hypotension and 25mg metoprolol succinate ordered by anesthesiology. Discussed case with Dr Andrews over the phone and at bedside. Allergies Allergy/AdvReac Type Severity Reaction Status Date / Time pyridostigmine Allergy Mild Vomiting Verified 05/30/22 07:06 Home Medications Medication Instructions Recorded Confirmed Type aspirin 81 mg chewable tablet 81 mg PO QDL 04/30/21 05/30/22 History (Aspirin Childrens) furosemide 20 mg tablet (Lasix) 40 mg PO QDL 04/30/21 05/30/22 History triamcinolone acetonide 0.1 % 1 applic topical DAILY PRN ud 03/04/22 05/30/22 History topical ointment acetaminophen 325 mg tablet 325 mg PO QID PRN Pain 04/23/22 05/30/22 History atorvastatin 40 mg tablet 40 mg PO QDL 04/23/22 05/30/22 History insulin glargine U-300 conc 300 18 unit subcut QDL 04/23/22 05/30/22 History unit/mL (1.5 mL) subcutaneous pen ([employer] SoloStar U-300 Insulin) liraglutide 0.6 mg/0.1 mL (18 mg/3 1.2 mg subcut QDL 04/23/22 05/30/22 History mL) subcutaneous pen injector (Victoza 3-Fady) metoprolol succinate 100 mg 100 mg PO QDL 04/23/22 05/30/22 History tablet,extended release 24 hr (Toprol XL) multivitamin 1 tab PO QDL 04/23/22 05/30/22 History pen needle, diabetic 32 gauge x #200 ea 04/29/22 05/20/22 Rx " (BD Ultra-Fine Shagufta Pen Needle) sacubitril 49 mg-valsartan 51 mg 1 tab PO BID #180 tabs 04/29/22 05/30/22 Rx tablet (Entresto) acetaminophen 500 mg tablet 1,000 mg PO TID Pain 30 days #180 05/14/22 05/30/22 Rx (Tylenol Extra Strength) tabs cefadroxil 500 mg capsule 500 mg PO BID 7 days #14 caps 05/14/22 05/30/22 Rx ondansetron 4 mg disintegrating 4 mg PO Q8 PRN nausea #20 tabs 05/14/22 05/30/22 Rx tablet sennosides 8.6 mg tablet (Senokot) 8.6 mg PO BID prevent constipation 05/14/22 05/30/22 Rx 14 days #28 tabs tamsulosin 0.4 mg capsule (Flomax) 0.4 mg PO DAILY #7 caps 05/14/22 05/30/22 Rx tramadol 50 mg tablet 50 - 100 mg PO Q6 PRN pain #40 tabs 05/14/22 05/30/22 Rx apixaban 5 mg tablet (Eliquis) 5 mg PO BID 05/30/22 05/30/22 History Patient History Medical History Atrial fibrillation CAD (coronary artery disease) s/p CABG x3 with IMMANUEL clip (04/2021) Follows with Dr. Hagan Diabetic retinopathy Eye problem Pt c/o ongoing issue with his vision. states he's been worked up for myesthenia gravis & 4th nerve palsy but no official diagnosis GERD (gastroesophageal reflux disease) rare, stable per pt History of blood transfusion 2021 History of rectal abscess > 20 yrs ago Hypertension controlled, stable per pt Ischemic cardiomyopathy EF 30-35% Pulmonary hypertension mild, PASP 45-50 mmHg Sleep apnea CPAP-compliant Type 2 diabetes mellitus IDDM Venous stasis ulcer BLLE (hx) - [place] [facility] in past 2021 Surgical History History of cardiac catheterization 02/2021 [place] > CABG History of coronary artery bypass graft x 3 04/22/2021 History of incision and drainage rectal abscess S/P tonsillectomy Family History Father Prostate cancer Myocardial infarction Coronary arteriosclerosis Other Family history non-contributory No family history of adverse response to anesthesia Denies family history of Colon cancer Ovarian cancer Breast cancer Social History Smoking Status: Never smoker Second Hand Exposure: No (as a child); Do You Dip or Chew Tobacco: No; Hx Alcohol Use: Yes Hx Substance Use: No Preferred Language: Bermudian Communication Ability: Effective Visual Impairment: Diminished Hearing Ability: Normal Assessment Counselor Required: No Beliefs That Will Affect Care: None marital status: Current Living Situation: Spouse current occupational status: retired Feels Safe at Home: Yes Safety Concerns: Feels Safe At This Time caffeine: No during the past year weight has: decreased > 10 lbs Physical Activity Frequency: Does not Exercise Seatbelt Use: always Do you think of yourself as: straight/heterosexual Gender Identity: Male Assistive Devices: CPAP and Glasses Review of Systems Review of Systems: All systems reviewed & are unremarkable except as noted in HPI & below Physical Exam Constitutional: WD/WN, vitals as above Eyes: PERRL, conjunctivae normal, anicteric sclerae ENMT: external ear and nose normal, oropharynx normal Respiratory: normal respiratory effort, lungs clear to auscultation Cardiovascular: Rate/Rhythm: + tachycardic and + irregularly irregular Heart Sounds: no murmur Extremities: normal capillary refill and + pedal edema (trace equal b/l); no calf tenderness Gastrointestinal (Abdomen): normal bowel sounds, soft, nontender, no h epatosplenomegaly Musculoskeletal: NV intact distal to operation site Skin: no rashes, warm and dry Neurologic: moves all extremities and awake; not confused Psychiatric: A+Ox3, euthymic affect Results & Data Results & Data Vital Signs (Past 12 Hours) Vital Signs Temp Pulse Pulse Resp BP Pulse Ox O2 Del Method 05/30/22 13:35 115 H 16 116/64 100 Nasal Cannula 05/30/22 13:25 122 H 14 117/54 L 97 Nasal Cannula 05/30/22 13:15 36.4 C L 113 H 16 112/71 99 Nasal Cannula 05/30/22 13:05 136 H 17 105/62 99 Nasal Cannula 05/30/22 12:45 139 H 17 85/61 L 95 Room Air 05/30/22 12:35 113 H 17 99/60 L 93 Room Air 05/30/22 13:45 36.6 C 126 H 16 102/70 100 Nasal Cannula 05/30/22 12:55 127 H 18 113/67 99 Nasal Cannula 05/30/22 12:25 143 H 16 89/60 L 96 Room Air 05/30/22 11:25 129 H 18 105/74 99 Oxymask 05/30/22 12:15 136 H 20 94/56 L 94 Room Air 05/30/22 12:05 126 H 15 95/64 L 96 Room Air 05/30/22 11:55 123 H 18 95/48 L 94 Room Air 05/30/22 11:45 127 H 19 99/67 L 94 Room Air 05/30/22 11:35 130 H 19 117/72 96 Room Air 05/30/22 11:15 128 H 19 114/67 100 Oxymask 05/30/22 11:08 36.2 C L 142 H 23 112/88 100 Oxymask 05/30/22 07:20 CPAP 05/30/22 07:20 37.0 C 103 H 18 132/82 98 Room Air O2 Flow Rate 05/30/22 13:35 2 05/30/22 13:25 2 05/30/22 13:15 2 05/30/22 13:05 2 05/30/22 12:45 05/30/22 12:35 05/30/22 13:45 2 05/30/22 12:55 2 05/30/22 12:25 05/30/22 11:25 2 05/30/22 12:15 05/30/22 12:05 05/30/22 11:55 05/30/22 11:45 05/30/22 11:35 05/30/22 11:15 5 05/30/22 11:08 5 05/30/22 07:20 05/30/22 07:20 Laboratory Results Abnormal lab results 05/30/22 05/30/22 05/30/22 Range/Units 06:56 11:10 12:49 RBC (4.70-6.10) M/uL Hgb (14.0-18.0) g/dl Hct (42.0-52.0) % Plt Count (130-400) K/uL ABG pO2 (80-95) mmHg ABG HCO3 (19-24) mmol/L ABG O2 Saturation (90-95) % BUN 26 H (6-23) mg/dl BUN/Creatinine Ratio 24.1 H (10-20) Glucose 151 H (70-99(Fasting)) mg/dl POC Glucose 122 H 140 H (70-99) mg/dl Calcium 8.4 L (8.6-10.3) mg/dl 05/30/22 05/30/22 05/30/22 Range/Units 12:49 12:49 12:52 RBC 3.49 L (4.70-6.10) M/uL Hgb 11.5 L (14.0-18.0) g/dl Hct 33.9 L (42.0-52.0) % Plt Count 128 L (130-400) K/uL ABG pO2 (80-95) mmHg ABG HCO3 (19-24) mmol/L ABG O2 Saturation (90-95) % BUN (6-23) mg/dl BUN/Creatinine Ratio (10-20) Glucose (70-99(Fasting)) mg/dl POC Glucose 142 H (70-99) mg/dl Calcium 8.5 L (8.6-10.3) mg/dl 05/30/22 Range/Units 12:53 RBC (4.70-6.10) M/uL Hgb (14.0-18.0) g/dl Hct (42.0-52.0) % Plt Count (130-400) K/uL ABG pO2 140 H (80-95) mmHg ABG HCO3 25 H (19-24) mmol/L ABG O2 Saturation 99.3 H (90-95) % BUN (6-23) mg/dl BUN/Creatinine Ratio (10-20) Glucose (70-99(Fasting)) mg/dl POC Glucose (70-99) mg/dl Calcium (8.6-10.3) mg/dl Diagnostic Findings SINGLE VIEW CHEST CLINICAL HISTORY: Chest congestion FINDINGS: An AP, portable, upright chest radiograph is compared to study dated 04/29/2022. The examination is degraded by portable technique and apical lordotic positioning. The patient is status post midline sternotomy. Epicardial pacing leads are noted. The heart is enlarged. There is mild pulmonary vascular congestion. There is chronic elevation of the right hemidiaphragm with bibasilar scarring/atelectasis. No airspace consolidation or large pleural effusion is identified. No pneumothorax is seen. The skeletal structures are osteopenic. The bony thorax is grossly intact. IMPRESSION: Cardiomegaly with pulmonary vascular congestion. ECG Rate (beats per minute): 120 Rhythm: atrial fibrillation Findings: no acute ischemic change Comparison ECG Date: from (April 29, 2022) Change: the following changes noted (rate increased) PG Care Time/CCT Total # of Minutes Spent Total Time Spent with Patient: Total time spent is greater than 50% in coordination of care (as documented) at patient's floor/unit and/or counseling patient: Coding Level of Care Code 28405 IN/OBS CONSULT LVL 4,60M Diagnoses History of total knee arthroplasty Z96.659 Atrial fibrillation with RVR I48.91 Postoperative hypotension I95.81 Chronic systolic (congestive) heart failure I50.22 Ischemic cardiomyopathy I25.5 Hypertension I10 Type 2 diabetes mellitus E11.9 Status post coronary artery bypass graft Z95.1
[2022-05-30] MEDS: ATORVASTATIN 40 MG TAB PO SCH (15:50)
[2022-05-30] MEDS: ASPIRIN 81 MG CHEW PO SCH (15:50)
[2022-05-30] MEDS: ACETAMINOPHEN 500 MG TAB PO SCH ×2 (15:50→21:39)
[2022-05-30] MEDS: METOPROLOL SUCC 50MG EXT REL TAB PO SCH (16:03)
[2022-05-30 16:05] LABS: Troponin I High Sensitivity 15.1 pg/ml (0-20)
[2022-05-30] MEDS: INSULIN ASPART PER UNIT CHARGE SC SCH ×3 (16:22→21:38)
[2022-05-30 16:43] LABS: Magnesium 1.7 mg/dl (1.7-2.4)
[2022-05-30] MEDS: ceFAZolin 2000MG 2,000 MG/15 ML SYR IV SCH (16:48)
[2022-05-30] MEDS: ASCORBIC ACID 500 MG TAB PO SCH (16:49)
[2022-05-30] MEDS ORDERED: TRANEXAMIC ACID / 0.7% NACL 1,000 MG/100 ML BAG IV SCH (17:00)
--- NOTE | 2022-05-30 18:09 | Electrocardiogram Report ---
Test Reason : Blood Pressure : / mmHG Vent. Rate : 120 BPM Atrial Rate : 133 BPM P-R Int : 000 ms QRS Dur : 094 ms QT Int : 372 ms P-R-T Axes : 000 -11 040 degrees QTc Int : 525 ms Atrial fibrillation Prolonged QT Abnormal ECG When compared with ECG of 29-APR-2022 14:58, Nonspecific T wave abnormality, improved in Anterolateral leads Confirmed by Bang Rivas ([id number]) on 05/30/2022 6:09:16 PM Referred By: Howard Mancia Confirmed By:Ashutosh Rivas
[2022-05-30] MEDS: KETOROLAC TROMETHAMINE 15 MG/ML VIAL IV SCH (20:00)
[2022-05-30] MEDS: SENNA 8.6 MG TAB PO SCH (20:01)
[2022-05-30] MEDS: DOCUSATE SODIUM 100 MG CAP PO SCH (20:01)
[2022-05-30] MEDS ORDERED: MAGNESIUM SULFATE / D5W 1 GM/100 ML BAG IV ONE (20:45)
[2022-05-30] MEDS ORDERED: SENNA 8.6 MG TAB PO SCH (21:00)
[2022-05-31] MEDS: ceFAZolin 2000MG 2,000 MG/15 ML SYR IV SCH (01:04)
[2022-05-31] MEDS: KETOROLAC TROMETHAMINE 15 MG/ML VIAL IV SCH ×3 (01:04→13:52)
[2022-05-31] MEDS: ACETAMINOPHEN 500 MG TAB PO SCH ×4 (05:54→22:57)
--- NOTE | 2022-05-31 07:37 | Hospitalist Progress Note ---
Date of Service May 31, 2022 Assessment & Plan (1) History of total knee arthroplasty: Plan: VTE/Pain/Bowel management per primary orthopedic team (2) Atrial fibrillation with RVR: Plan: Chronic atrial fibrillation s/p LA appendage clip Secondary to physiologic stress of surgery. Do not suspect his HoTN was related to his RVR. Rates are continuing to improve on regular checks. Continue metoprolol succinate 100mg daily Appreciate surgical input on restarting home Eliquis (3) Postoperative hypotension: Plan: Improving through POD1 Likely multifactorial between home RX and general anesthesia. Not volume depleted. H&H stable. No e/o infection. Asymptomatic. Pt reports hypotension at home on Entresto although he is asy mptomatic at a home and here. Hold Entresto for now - will try to restart prior to discharge Hold on further IVF at this time given CHF and not volume depleted appearing (4) Chronic systolic (congestive) heart failure: Plan: Suspect mild pulmonary edema if his baseline however he is also notably fluid balance positive on review of I&Os. Breathing comfortably, no O2 requirement. Hold on further IVF Lasix PRN (5) Ischemic cardiomyopathy: Plan: Continue metoprolol succinate Will hold Entresto initially due to post operative hypotension but will try and restart at once-daily dosing on 05/31 (on bid at home) (6) Hypertension: Plan: See above (7) Type 2 diabetes mellitus: Plan: HbA1C 6.1 in April, no need to repeat Pharmacy on board for glycemic control with basal bolus insulin (8) Status post coronary artery bypass graft: Plan: Noted Plan DVT PPX - SCDs, Eliquis when appropriate Code - Full Dispo - PCU Diet: CC/HH Admission and Anticipated Discharge Date Admission Date: May 30, 2022 Subjective NAEO. BPs more within the normal range, this AM slightly softer 98/58. 24-hour fluid balance at +2650 net. Feeling well otherwise. Hip doing OK. No pain at present. No n/v. Appetite good. No palpitations or CP. No SOB. Review of Systems Review of Systems: as per HPI Physical Exam Physical Exam: General: Well-appearing 76-year-old male in NAD. HEENT: NCAT. - Eyes - Sclera are white, anicteric, and without injection. - Mouth - MMM - Neck - supple, no appreciable JVD Cardiac: Normal rate and irregular rhythm; S1 and S2 present with no murmur detected Pulmonary: Good respiratory effort with symmetric expansion of the chest. No use of accessory muscles. Lungs were CTAB Abdominal: Normoactive bowel sounds. Abdomen was soft, nondistended, and non- tender to palpation. Extremities: Upper and lower extremities are warm and well perfused. No peripheral edema in the lower extremities bilaterally Results & Data Results & Data Vital Signs (Past 12 Hours) Vital Signs Temp Pulse Pulse Pulse Resp BP BP 05/31/22 07:13 36.6 C 92 H 20 98/58 L 05/31/22 03:28 36.7 C 92 H 20 106/69 05/30/22 23:00 81 05/30/22 22:39 36.7 C 82 18 110/68 Pulse Ox O2 Del Method 05/31/22 07:13 99 Room Air 05/31/22 03:28 96 CPAP 05/30/22 23:00 05/30/22 22:39 97 Room Air Resident Activity Tracking Resident Involvement: Resident Care Provided Care Provided: Adult Hospital Medicine
--- NOTE | 2022-05-31 07:52 | Progress Notes ---
DATE OF SERVICE: 05/31/2022. SUBJECTIVE: A 76-year-old gentleman with multiple medical comorbidities, postoperative day 1 from a right total hip replacement. He is doing pretty well. He was sent to the PCU for monitoring due to a higher heart rate and some low blood pressure. He has been asymptomatic. He got quite a bit of hi p pain when he first got out of bed this morning. Denies any chest pain or shortness of breath. Not feeling dizzy or lightheaded. OBJECTIVE: VITAL SIGNS: Temperature 36.5. Vital signs are stable. GENERAL: Shows a pleasant middle-aged male. He is sitting on his bedside chair, looks pretty comfor table currently. EXTREMITIES: Examination of the right hip reveals the dressing to be clean, dry and intact. Leg roby gths are equal. Hip is located. NEUROLOGIC: He is neurologically intact. LABORATORY DATA: Hemoglobin 11.5, hematocrit 33.9. Electrolytes are stable. ASSESSMENT: A 76-year-old gentleman with multiple medical comorbidities, postoperative day 1 from ri ght total hip replacement. Orthopedically, he seems to be doing fine. Clinically, he seems to be fin e. He did have quite a bit of pain when he first got up this morning, but seems to be doing better n ow. PLAN: 1. DVT prophylaxis includes thigh-high TEDs, SCDs and we will start him back on Lovenox. He will be on a prophylactic dose here initially and then in 2 days back to a therapeutic dose. 2. PT/OT. He can weight bear as tolerated on the right lower extremity. 3. Pain control, doing okay with current pain regimen. 4. Disposition: He is planning to be discharged to home once adequately recovered. We will follow Medicine's recommendations as far as medical management. Hopefully, we can transfer him out of the P CU today to the orthopedic floor. He may be discharged in the next day to 2 days with home health. Any orthopedic questions can be directed to me at [phone]. Job ID: [id number]
[2022-05-31] MEDS: ASCORBIC ACID 500 MG TAB PO SCH ×2 (08:30→16:31)
[2022-05-31] MEDS: INSULIN ASPART PER UNIT CHARGE SC SCH ×4 (08:34→20:12)
[2022-05-31] MEDS: DOCUSATE SODIUM 100 MG CAP PO SCH ×2 (08:35→21:03)
[2022-05-31] MEDS: MULTIVITAMIN TAB PO SCH (08:35)
[2022-05-31] MEDS: SENNA 8.6 MG TAB PO SCH ×2 (08:35→21:03)
[2022-05-31] MEDS: TAMSULOSIN HCL 0.4 MG CAP PO SCH (08:35)
[2022-05-31 09:32] LABS: Basophils # (auto) 0.05 K/uL (0-0.2); Basophils % (auto) 0.4 %; Eosinophils % (auto) 1.7 %; Hematocrit (blood only) 34.7 % (42.0-52.0); Hemoglobin 12.2 g/dl (14.0-18.0); Immature Granulocytes # (auto) 0.04 K/uL (0.01-0.20); Immature Granulocytes % (auto) 0.3 %; Lymphocytes # (auto) 0.62 K/uL (1.2-3.4); Lymphocytes % (auto) 5.2 %; Mean Corpuscular Hemoglobin 34.3 pg (25.0-34.0); Mean Corpuscular Hgb Conc 35.2 g/dL (32.0-36.0); Mean Corpuscular Volume 97.5 fL (80.0-100.0); Mean Platelet Volume 11.7 fL (9.4-12.4); Monocytes # (auto) 0.73 K/uL (0.11-0.59); Monocytes % (auto) 6.1 %; Neutrophils # (auto) 10.36 K/uL (1.40-6.50); Neutrophils % (auto) 86.3 %; Platelet Count 137 K/uL (130-400); RDW Coefficient of Variation 12.6 % (11.5-14.5); RDW Standard Deviation 45.7 fL (36.4-46.3); Red Blood Count 3.56 M/uL (4.70-6.10)
[2022-05-31 09:49] LABS: BUN Creatinine Ratio 22.6 (10-20); Calcium 8.5 mg/dl (8.6-10.3); Creatinine Clr Calc Pharmacy 57.9 ml/min; Est GFR (African American) 60.6 ml/min; Est GFR (Non-African American) 52.3 ml/min; Magnesium 2.1 mg/dl (1.7-2.4); Potassium 4.7 mmol/L (3.5-5.1)
[2022-05-31 09:52] LABS: Troponin I High Sensitivity 38.2 pg/ml (0-20)
[2022-05-31] MEDS ORDERED: FUROSEMIDE 40 MG TAB PO SCH (11:30)
[2022-05-31] MEDS ORDERED: LANTUS PER UNIT CHARGE SC ONE (12:00)
[2022-05-31] MEDS: ATORVASTATIN 40 MG TAB PO SCH (12:07)
[2022-05-31] MEDS: METOPROLOL SUCC 50MG EXT REL TAB PO SCH (12:07)
[2022-05-31] MEDS: ASPIRIN 81 MG CHEW PO SCH (12:07)
[2022-05-31] MEDS: APIXABAN 2.5 MG TAB PO SCH ×2 (12:08→23:13)
[2022-05-31] MEDS ORDERED: SODIUM CHLORIDE 0.9% 1000ML 250 ML IV ONE ×2 (13:19→15:31)
--- NOTE | 2022-05-31 13:47 | Communication Note ---
Date of Service: May 31, 2022 At bedside this AM, BP ~110/70. As afternoon progressed, BPs closer in the 80- 90/50 range. Permanent atrial fibrillation with rates in the 90s persists. He is asymptomatic other than feeling tired. No presyncopal feelings with standing. Breathing fine. Hip feels ok. No fever. No pallor. Cap refill 4-5 seconds noted. No overt signs of acute CHF. Fluid balance, UOP seem adequate at this time. -- HoTN: Fluid redistribution in setting of recent surgery in context of known CHF with GDMT? Hold metoprolol, furosemide, Entresto. Will give 250cc NSS now an d monitor response. Check CBC, BMP, BNP, lactate given decrease over the course of the day. Continue to monitor SpO2, RR. Back on Eliquis 2.5mg b.i.d. at this time. Continue monitoring on PCU for now.
[2022-05-31 14:14] LABS: Basophils # (auto) 0.04 K/uL (0-0.2); Basophils % (auto) 0.4 %; Eosinophils # (auto) 0.21 K/uL (0-0.50); Eosinophils % (auto) 2.1 %; Hematocrit (blood only) 32.8 % (42.0-52.0); Hemoglobin 11.2 g/dl (14.0-18.0); Immature Granulocytes # (auto) 0.04 K/uL (0.01-0.20); Immature Granulocytes % (auto) 0.4 %; Lymphocytes # (auto) 0.92 K/uL (1.2-3.4); Lymphocytes % (auto) 9.3 %; Mean Corpuscular Hemoglobin 33.9 pg (25.0-34.0); Mean Corpuscular Hgb Conc 34.1 g/dL (32.0-36.0); Mean Corpuscular Volume 99.4 fL (80.0-100.0); Mean Platelet Volume 11.7 fL (9.4-12.4); Monocytes # (auto) 0.55 K/uL (0.11-0.59); Monocytes % (auto) 5.5 %; Neutrophils # (auto) 8.16 K/uL (1.40-6.50); Neutrophils % (auto) 82.3 %; Platelet Count 115 K/uL (130-400); RDW Coefficient of Variation 12.8 % (11.5-14.5); RDW Standard Deviation 46.5 fL (36.4-46.3); White Blood Count 9.92 K/ul (4.8-10.8)
[2022-05-31 14:29] LABS: BUN Creatinine Ratio 23.4 (10-20); Calcium 8.3 mg/dl (8.6-10.3); Creatinine Clr Calc Pharmacy 53.1 ml/min; Est GFR (African American) 54.6 ml/min; Est GFR (Non-African American) 47.1 ml/min; Potassium 4.1 mmol/L (3.5-5.1)
[2022-05-31] MEDS: SODIUM CHLORIDE 0.9% 500 ML IV SCH ×2 (15:57→23:12)
[2022-05-31] MEDS ORDERED: ALBUMIN 25% 12.5 GM/50 ML VIAL IV ONE (16:19)
--- NOTE | 2022-05-31 16:57 | Communication Note ---
Date of Service: May 31, 2022 I personally examined the patient and verified all barfield points of history and exam, discussed case, and agree with decision making and plan documented by Dr. Traylor in Hospitalist progress note today. Patient continues to have episodes of hypotension, he denies symptoms. Currently holding Entresto and Lasix. Will restart Toprol tomorrow am. Gentle fluids initiated, NC 80 mL/h. Monitoring volume status closely. Patient euvolemic on exam.
[2022-06-01] MEDS: ACETAMINOPHEN 500 MG TAB PO SCH ×3 (06:16→21:20)
[2022-06-01] MEDS: SODIUM CHLORIDE 0.9% 500 ML IV SCH (06:17)
[2022-06-01 06:35] LABS: Basophils # (auto) 0.02 K/uL (0-0.2); Basophils % (auto) 0.2 %; Eosinophils # (auto) 0.12 K/uL (0-0.50); Eosinophils % (auto) 1.4 %; Hematocrit (blood only) 32.3 % (42.0-52.0); Hemoglobin 11.3 g/dl (14.0-18.0); Immature Granulocytes # (auto) 0.04 K/uL (0.01-0.20); Immature Granulocytes % (auto) 0.5 %; Lymphocytes # (auto) 0.97 K/uL (1.2-3.4); Lymphocytes % (auto) 10.9 %; Mean Corpuscular Hemoglobin 34.5 pg (25.0-34.0); Mean Corpuscular Volume 98.5 fL (80.0-100.0); Mean Platelet Volume 11.6 fL (9.4-12.4); Monocytes # (auto) 0.82 K/uL (0.11-0.59); Monocytes % (auto) 9.2 %; Neutrophils # (auto) 6.91 K/uL (1.40-6.50); Neutrophils % (auto) 77.8 %; Platelet Count 117 K/uL (130-400); RDW Coefficient of Variation 12.7 % (11.5-14.5); RDW Standard Deviation 46.1 fL (36.4-46.3); Red Blood Count 3.28 M/uL (4.70-6.10); White Blood Count 8.88 K/ul (4.8-10.8)
--- NOTE | 2022-06-01 06:37 | Hospitalist Progress Note ---
Date of Service June 01, 2022 Assessment & Plan (1) H/O total hip arthroplasty: Plan: VTE/Pain/Bowel management per primary orthopedic team (2) Postoperative hypotension: Plan: Improving through POD2 Likely multifactorial between home RX, general anesthesia, and volume redistribution. Improved with gentle rehydration and albumin administration. H&H stable. No e/o infection. Asymptomatic. Pt reports hypotension at home on Entresto although he is asymptomatic at a home and here. Restarted metoprolol at half-home (50mg) dose today - resume full dose (100mg) on 06/02, and plan to add Lasix 40mg back in PM if BPs holding. Likely will have to slowly reintroduce Entresto with close PCP f/u. Continue holding for now. Consider spot 250-500 boluses with 12.5 - 25g of 25% albumin administration PRN (3) Atrial fibrillation with RVR: Plan: Chronic atrial fibrillation s/p LA appendage clip Secondary to physiologic stress of surgery. Do not suspect his previous HoTN was related to his RVR. Rates are continuing to improve on regular checks. RVR recurred overnight 05/31- in context of metoprolol being held Resumed metoprolol succinate at 50mg daily -- increase to 100mg daily pending BP response Consider Lopressor IV spot dosing PRN Resume Eliquis per primary surgical team (4) Chronic systolic (congestive) heart failure: Plan: Ischemic HFrEF Suspect mild pulmonary edema on CXR is his baseline Euvolemic otherwise. Breathing comfortably, no O2 requirement Plan to resume Lasix on 06/02 should BPs hold with normal metoprolol 100mg dose (note- Lasix not yet added to scheduled Rx list) (5) Hypertension: Plan: History of, see above (6) Type 2 diabetes mellitus: Plan: HbA1C 6.1 in April, no need to repeat Pharmacy on board for glycemic control with basal bolus insulin (7) Status post coronary artery bypass graft: Plan: Noted Plan DVT PPX - SCDs, Eliquis Code - Full Dispo - PCU Diet: CC/HH Admission and Anticipated Discharge Date Admission Date: May 30, 2022 Supervising Physician Co-Signing Physician Notes I personally examined the patient and verified all barfield points of history and exam, discussed case, and agree with decision making and plan documented by Dr. Traylor. Post-op hypotension improving, patient reports close monitoring at home prior to right hip arthroplasty with average SBP 110s and DBP 60s. Toprol started today at 50 mg, will increase to home dose 100 mg tomorrow, patient did have some elevations of heart rate overnight and remains asymptomatic. Will restart Lasix 40 mg tomorrow if blood pressures allow, patient does state that he has been taking 60 mg for the past couple months as he feels a 40 mg dose was not working as well. On exam, patient euvolemic. Will also need to start Entresto, patient was on twice daily dosing with cardiology for GDMT. Patient states that he has been quite sedentary due to hip pain and deconditioning, encouraged efforts to increase activity as tolerated, patient will benefit from focused physical therapy. Subjective BPs stabilized yesterday afternoon with IVF and albumin repletion. HRs trended upwards overnight towards RVR, rates between 140-160s. Improved with metoprolol administration Feeling fine this AM. Tired given all the frequent checks. Wondering if Senna can be reduced or stopped. No palpitations/CP/SOB. Able to get up without issue. Review of Systems Review of Systems: as per HPI Physical Exam Physical Exam: General: Well-appearing 76-year-old male in NAD. HEENT: NCAT. - Eyes - Sclera are white, anicteric, and without injection. - Mouth - MMM - Neck - supple, no appreciable JVD Cardiac: Tachycardic with irregular rhythm; S1 and S2 present with no murmur detected Pulmonary: Good respiratory effort with symmetric expansion of the chest. No use of accessory muscles. Lungs were CTAB Abdominal: Normoactive bowel sounds. Abdomen was soft, nondistended, and non- tender to palpation. Extremities: Upper and lower extremities are warm and well perfused. No peripheral edema in the lower extremities bilaterally Results & Data Results & Data Vital Signs (Past 12 Hours) Vital Signs Temp Pulse Pulse Resp BP BP Pulse Ox 06/01/22 03:00 36.7 C 98 H 15 115/68 96 05/31/22 23:00 90 05/31/22 22:45 36.6 C 102 H 18 116/75 99 05/31/22 19:22 36.6 C 97 H 20 93/59 L 100 O2 Del Method 06/01/22 03:00 Room Air 05/31/22 23:00 05/31/22 22:45 CPAP 05/31/22 19:22 Room Air Resident Activity Tracking Resident Involvement: Resident Care Provided Care Provided: Adult Hospital Medicine
[2022-06-01 06:53] LABS: BUN Creatinine Ratio 28.9 (10-20); Calcium 8.3 mg/dl (8.6-10.3); Creatinine Clr Calc Pharmacy 67.5 ml/min; Potassium 4.2 mmol/L (3.5-5.1)
[2022-06-01] MEDS ORDERED: SENNA 8.6 MG TAB PO PRN (07:12)
[2022-06-01] MEDS: MULTIVITAMIN TAB PO SCH (08:16)
[2022-06-01] MEDS: DOCUSATE SODIUM 100 MG CAP PO SCH ×2 (08:16→21:19)
[2022-06-01] MEDS: TAMSULOSIN HCL 0.4 MG CAP PO SCH (08:16)
[2022-06-01] MEDS: ASCORBIC ACID 500 MG TAB PO SCH ×2 (08:16→16:55)
[2022-06-01] MEDS: INSULIN ASPART PER UNIT CHARGE SC SCH ×4 (08:17→21:20)
--- NOTE | 2022-06-01 08:17 | Progress Notes ---
DATE OF SERVICE: 06/01/2022 SUBJECTIVE: A 76-year-old gentleman with multiple medical comorbidities, now postop day 2 from right total hip replacement. Hip is doing fine. Really not having much hip pain. He has had a bunch of other issues with his heart and his blood pressure. He has got chronic atrial fibrillation and had s ome hypotension, so he has held his metoprolol and his heart rate has been up. He has been asymptoma tic the whole time. Not really having much hip pain. He has been pretty frustrated by just his lack rest and always getting up and having trouble getting any rest. OBJECTIVE: VITAL SIGNS: Temperature is 36.7. Vital signs are stable, but heart rate is 120. PHYSICAL EXAMINATION: GENERAL: Physical examination shows a pleasant elderly male. He seems pretty calm this morning. EXTREMITIES: Examination of the right hip reveals dressing to be clean, dry, and intact. Thigh is s oft and supple. Hip is located. He is neurologically intact. LABORATORY DATA: Hemoglobin is 11.3. Hematocrit is 32.3. Electrolytes are stable. ASSESSMENT: A 76-year-old gentleman with multiple medical comorbidities postop day 2 from a right to [place] hip replacement. Orthopedically, he is doing fine. He has had some medical issues with his hear t, blood pressure, atrial fibrillation, and tachycardia. He has been asymptomatic to all this. Pain seems to be improving. Blood pressure has improved. Heart rate is starting to improve with metopro lol. PLAN: 1. DVT prophylaxis to include thigh-high TEDs, SCDs, and back on Eliquis. He is on prophylactic dos e now and we will increase his dose back to regular dose tomorrow. 2. PT/OT. He can weight bear as tolerated in right leg. Has not done much therapy yet. 3. His medical management as per the medicine service. Seems to be getting under better control and hopefully get his heart rate and blood pressure better today. 4. Disposition: He is hoping to be discharged to home. Really hoping to go home tomorrow. Hopeful ly, we will get his heart issues straightened out today and can get him home tomorrow. Job ID: [id number]
[2022-06-01] MEDS ORDERED: METOPROLOL SUCC 50MG EXT REL TAB PO SCH ×3 (09:00→11:30)
[2022-06-01] MEDS: ASPIRIN 81 MG CHEW PO SCH (11:56)
[2022-06-01] MEDS: ATORVASTATIN 40 MG TAB PO SCH (11:57)
[2022-06-01] MEDS: LANTUS PER UNIT CHARGE SC SCH (12:03)
[2022-06-01] MEDS: APIXABAN 2.5 MG TAB PO SCH (12:19)
[2022-06-01] MEDS ORDERED: METOPROLOL SUCC 25MG EXT REL TAB PO STA (13:09)
[2022-06-01] MEDS: SODIUM CHLORIDE 0.9% 1000ML 1,000 ML IV SCH (17:30)
[2022-06-02] MEDS: APIXABAN 2.5 MG TAB PO SCH ×2 (01:34→11:57)
[2022-06-02] MEDS: SODIUM CHLORIDE 0.9% 1000ML 1,000 ML IV SCH (01:34)
[2022-06-02] MEDS: ACETAMINOPHEN 500 MG TAB PO SCH (06:03)
[2022-06-02 06:49] LABS: Basophils # (auto) 0.01 K/uL (0-0.2); Basophils % (auto) 0.1 %; Eosinophils # (auto) 0.16 K/uL (0-0.50); Eosinophils % (auto) 2.2 %; Hematocrit (blood only) 30.5 % (42.0-52.0); Hemoglobin 10.4 g/dl (14.0-18.0); Immature Granulocytes # (auto) 0.02 K/uL (0.01-0.20); Immature Granulocytes % (auto) 0.3 %; Lymphocytes % (auto) 12.6 %; Mean Corpuscular Hemoglobin 33.8 pg (25.0-34.0); Mean Corpuscular Hgb Conc 34.1 g/dL (32.0-36.0); Mean Platelet Volume 11.3 fL (9.4-12.4); Monocytes # (auto) 0.73 K/uL (0.11-0.59); Monocytes % (auto) 10.2 %; Neutrophils # (auto) 5.34 K/uL (1.40-6.50); Neutrophils % (auto) 74.6 %; Platelet Count 113 K/uL (130-400); RDW Coefficient of Variation 12.9 % (11.5-14.5); RDW Standard Deviation 46.3 fL (36.4-46.3); Red Blood Count 3.08 M/uL (4.70-6.10); White Blood Count 7.16 K/ul (4.8-10.8)
[2022-06-02 07:02] LABS: BUN Creatinine Ratio 30.6 (10-20); Creatinine Clr Calc Pharmacy 90.5 ml/min; Est GFR (African American) 99.5 ml/min; Est GFR (Non-African American) 85.8 ml/min; Potassium 4.3 mmol/L (3.5-5.1)
[2022-06-02] MEDS: ASCORBIC ACID 500 MG TAB PO SCH (08:30)
[2022-06-02] MEDS: MULTIVITAMIN TAB PO SCH (08:31)
[2022-06-02] MEDS: DOCUSATE SODIUM 100 MG CAP PO SCH (08:31)
[2022-06-02] MEDS: TAMSULOSIN HCL 0.4 MG CAP PO SCH (08:31)
[2022-06-02] MEDS: INSULIN ASPART PER UNIT CHARGE SC SCH ×2 (08:34→12:03)
--- NOTE | 2022-06-02 09:42 | Hospitalist Progress Note ---
Date of Service June 02, 2022 Assessment & Plan (1) H/O total hip arthroplasty: Plan: VTE/Pain/Bowel management per primary orthopedic team Medicine will sign off at this time. Discharge planning per primary orthopedic team. Please contact with any questions. (2) Postoperative hypotension: Plan: Improving through POD3 Likely multifactorial between home RX, general anesthesia, and volume redis tribution. Improved with gentle rehydration and albumin administration. H&H stable. No e/o infection. Asymptomatic. Pt reports hypotension at home on Entresto although he is asymptomatic at a home and here. Resumed home metoprolol 100 mg today. BP stable, discharge home with instruction to hold Entresto and Lasix until PCP f/u (3) Atrial fibrillation with RVR: Plan: Chronic atrial fibrillation s/p LA appendage clip Secondary to physiologic stress of surgery. Do not suspect his previous HoTN was related to his RVR. Rates are continuing to improve on regular checks. RVR recurred overnight 05/31- in context of metoprolol being held Currently rate-controlled On Eliquis (4) Chronic systolic (congestive) heart failure: Plan: Ischemic HFrEF Suspect mild pulmonary edema on CXR is his baseline Euvolemic otherwise. Breathing comfortably, no O2 requirement Advised to hold Lasix at present to avoid exacerbating hypotension- will resume per PCP discretion (5) Hypertension: Plan: History of, see above (6) Type 2 diabetes mellitus: Plan: HbA1C 6.1 in April (7) Status post coronary artery bypass graft: Plan: Noted Plan DVT PPX - SCDs, Eliquis Code - Full Dispo - PCU Diet: CC/HH Admission and Anticipated Discharge Date Admission Date: May 30, 2022 Supervising Physician Co-Signing Physician Notes I personally examined the patient and verified all barfield points of history and exam, discussed case, and agree with decision making with Dr James Feeling better and would like to go home. Discussed heart rate and blood pressurewas predominantly low 100s and he feels fine. Discussed holding off on Lasix and Entresto for now, checking vitals twice daily as he does already, and following up with PCP/cardiology with anticipated slow resumption of both. Vitals noted, in general he is awake and alert pleasant no distress. HEENT normocephalic atraumatic mucous membranes moist. Breathing unlabored no accessory muscle use good effort. Skin shows no rashes no pallor or icterus. Hypotension tachycardialikely due to expected blood loss with surgery combined with his baseline ischemic cardiomyopathy/atrial fibrillation and afterload reduction/rate controlling medicationsnow asymptomatic, and pressures are respectable. Heart rates generally in the low 100s and he is totally asymptomaticsafe for home. Metoprolol at home dosing, check vitals as is his norm, and close PCP follow-up is being scheduled by nurse navigator, also discussed sending a portal message to PCP/cardiology with his vitals on and as long as he continues to feel okay, anticipate slow resumption of his home meds over the coming week. Outpatient labs by PCP. Otherwise as above. Subjective Acute events overnight- none. Pt examined at bedside. Not sleeping well in hospital. No dyspnea or chest pain. Would like to go home. Review of Systems Review of Systems: as per HPI Physical Exam Physical Exam: General: Well-appearing 76-year-old male in NAD. HEENT: NCAT. - Eyes - Sclera are white, anicteric, and without injection. - Mouth - MMM - Neck - supple, no appreciable JVD Cardiac: Tachycardic with irregular rhythm; S1 and S2 present with no murmur detected Pulmonary: Good respiratory effort with symmetric expansion of the chest. No use of accessory muscles. Lungs were CTAB Abdominal: Normoactive bowel sounds. Abdomen was soft, nondistended, and non- tender to palpation. Extremities: Upper and lower extremities are warm and well perfused. +1 peripheral edema in the lower extremities bilaterally Results & Data Results & Data Vital Signs (Past 12 Hours) Vital Signs Temp Pulse Pulse Pulse Resp BP BP 06/02/22 07:54 36.8 C 111 H 18 127/76 06/02/22 02:42 36.6 C 100 H 16 115/78 06/01/22 23:00 103 H 06/01/22 22:41 36.6 C 118 H 16 128/82 Pulse Ox O2 Del Method 06/02/22 07:54 97 Room Air 06/02/22 02:42 100 CPAP 06/01/22 23:00 06/01/22 22:41 100 CPAP Resident Activity Tracking Resident Involvement: Resident Care Provided Care Provided: Adult Hospital Medicine
[2022-06-02] MEDS ORDERED: LANTUS PER UNIT CHARGE SC SCH (11:30)
[2022-06-02] MEDS ORDERED: METOPROLOL SUCC 50MG EXT REL TAB PO SCH (11:30)
[2022-06-02] MEDS: ASPIRIN 81 MG CHEW PO SCH (11:56)
[2022-06-02] MEDS: ATORVASTATIN 40 MG TAB PO SCH (11:56)
[2022-06-02] MEDS: LANTUS PER UNIT CHARGE SC SCH (12:03)
--- NOTE | 2022-06-02 13:23 | Progress Notes ---
DATE OF SERVICE: 06/02/2022 SUBJECTIVE: A 76-year-old gentleman now postop day 3 from right total hip replacement. He has had s ome issues postoperatively with hypotension as well as some tachycardia with underlying AFib. They h ave been adjusting his medicines. He has been completely asymptomatic throughout the entire visit. No chest pain or shortness of breath. Not feeling dizzy or lightheaded. He is really adamant about wanting to go home. He is not getting any rest in the hospital. OBJECTIVE: VITAL SIGNS: Temperature is 36.6. Vital signs are stable. He has been intermittently tachycardic. GENERAL: Shows a pleasant, elderly male. Sitting on his bedside chair, looks completely comfortable . EXTREMITIES: Examination of the right hip reveals dressing to be clean, dry and intact. Leg lengths are equal. Hip is located. He is neurologically intact. LABORATORY DATA: Hemoglobin 10.4. Hematocrit 30.5. Electrolytes are stable. ASSESSMENT: A 76-year-old gentleman with multiple medical comorbidities including atrial fibrillatio n, on Eliquis postop day 3 from a right total hip replacement. He had some problems with hypotension and rapid ventricular response/atrial fibrillation but all seem to be clinically asymptomatic. Hear t rate is improving, now he is back on his metoprolol. PLAN: 1. DVT prophylaxis includes thigh-high TEDs, SCDs and back on Eliquis. 2. PT/OT. He can fully weightbear as tolerated. 3. Pain control, doing okay with current pain regimen. Really not having much pain. 4. Medical management as per the medicine service. 5. Disposition: Plan to discharge to home with some home health. We will check with the medicine s casey today. He thinks that they have released him for discharge. Job ID: [id number]
--- NOTE | 2022-06-02 13:48 | Pharmacy Report ---
Pharmacy Glycemic Short Note 2 - Date of Service June 02, 2022 - Glycemic Short BSG Results (Last 24 hours): 06/01/22 06/01/22 06/02/22 16:11 20:10 06:14 Glucose 107 H POC Glucose 133 H 118 H 06/02/22 06/02/22 07:23 11:19 Glucose POC Glucose 112 H 131 H OUTPATIENT ANTIDIABETIC REGIMEN: * Toujeo 18 units SC daily w/ lunch * Victoza 1.2 mg SC daily w/ lunch HbA1c: 6.1% (04/29/22) ASSESSMENT: 06/02/22 * BSGs yesterday were [phone] mg/dL. Patient received 35 units of insulin (18 units of basal and 17 units of bolus). * BSGs today are 112-131 mg/dL. * Since fasting is decreased, will reduce Lantus to 16 units. * Continue Novolog since BSGs controlled. BACKGROUND * DF is a 76 year old male POD #0 s/p right total hip arthroplasty * Dexamethasone 8 mg IV x 1 in OR * Well-controlled T2DM as an outpatient based on HbA1c * Preop BSG of 122 mg/dL, postop BSG of 142 mg/dL * Will give home dose of basal now postoperatively and use weight-based stress of 2 Novolog PLAN FOR INPATIENT GLYCEMIC CONTROL: * Basal insulin * Lantus 16 units SQ daily with lunch * Bolus insulin * NovoLog per scale ACHS or Q6hrs while NPO * Goal Range: Low 110 mg/dL - High 140 mg/dL * Correction Factor: 30 mg/dL/unit * Nutritional / Prandial insulin per carb ratio of 1 unit per 10 grams CHO consumed
--- NOTE | 2022-06-02 17:37 | Billing Data ---
Date of Service June 02, 2022 Coding Level of Care Code 99134 SUB INP/OBS CARE
[2022-06-03 10:52] LABS: HBSAG NON-REACTIVE (NON-REACTIVE); Hepatitis A Antibody IgM NON-REACTIVE (NON-REACTIVE); Hepatitis B Core Antibody IgM NON-REACTIVE (NON-REACTIVE)
--- NOTE | 2022-06-04 08:44 | Discharge Summary ---
Date of Service June 04, 2022 Discharge Data Consultations 05/30/22 12:41 Consult Internal Medicine Stat Procedures Performed Operation Date: 05/30/22 08:50 Actual Procedures p Right Total Hip Arthroplasty(Right) - Howard Mancia MD Hospital Course (1) S/P total right hip arthroplasty: This is a 76 year old patient admitted on 05/30/22 and underwent total hip arthroplasty. He tolerated the procedure well and there were no complications. Transferred to the PACU post op and later to the PCU for further care. He did have some post op hypotension and tachycardia with underlying atrial fibrillation. The Hospitalist service was consulted for post op medical management. He was given ancef for antibiotic prophylaxis. He was also given VALDEZ stockings, SCDs, and eliquis for DVT prophylaxis. Hemoglobin, hematocrit, and vital signs were monitored during his hospital stay and remained stable. Did not require any blood transfusions. There were no complications during his hospital stay. By post op day #3 the patient was tolerating a diabetic diet, pain was reasonably controlled with oral pain medicine, and he was participating in physical therapy. On post op day #3 the patient was discharged home and set up with home health care. He was given printed discharge instructions including prescriptions for extra strength tylenol, cefadroxil, flomax, senokot, zofran, and tramadol. Continue physical therapy, weight bearing as tolerated. Continue hip precautions. Continue VALDEZ stockings. Follow up approximately 2 weeks post op or sooner if there are problems or concerns. Coding Level of Care Code None Diagnoses S/P total right hip arthroplasty Z96.641
== END 2022-06-02 15:20 | disposition home health service (06) ==
LOC: ASU 06:19 → 2S 06:19

== ENCOUNTER 2022-09-03 08:25 | Inpatient (IN) ==
[2022-09-03] MEDS ORDERED: SODIUM CHLORIDE 0.9% 1000ML 1,000 ML IV STA (09:02)
[2022-09-03] MEDS ORDERED: ONDANSETRON INJ 2 MG/ML 2 ML VIAL IV STA (09:02)
[2022-09-03] MEDS ORDERED: MoRPHine SULFATE 4 MG/ML 1 ML CARP\\VIAL IV STA (09:02)
--- NOTE | 2022-09-03 09:16 | Emergency Department Note ---
ED Provider Note History of Present Illness Chief Complaint: Abdominal Pain Stated Complaint: VOMITING, ABDOMINAL PAIN, Time Seen by Provider: 09/03/22 08:38 76-year-old male who presents the emergency department with his for evaluat ion of central abdominal pain, nausea and vomiting. The patient reports that the pain started late last evening, and has progressively worsened overnight. He reports that the pain is constant and dull in nature. It does not radiate into the back or chest. The patient does have a prior history of three-vessel CABG, and saw his library services dean recently with a normal echocardiogram. The patient denies any alleviating or aggravating factors for his pain, and currently rates his discomfort a 9 out of 10. Home Medications Medication Instructions Recorded Confirmed Type triamcinolone acetonide 0.1 % 1 applic topical DAILY PRN ud 03/04/22 09/03/22 History topical ointment atorvastatin 40 mg tablet 40 mg PO QDL 04/23/22 09/03/22 History multivitamin 1 tab PO QDL 04/23/22 09/03/22 History pen needle, diabetic 32 gauge x #200 ea 04/29/22 09/02/22 Rx " (BD Ultra-Fine Shagufta Pen Needle) apixaban 5 mg tablet (Eliquis) 5 mg PO BID 05/30/22 09/03/22 History furosemide 20 mg tablet (Lasix) 40 mg PO DAILY 06/13/22 09/03/22 History liraglutide 0.6 mg/0.1 mL (18 mg/3 1.2 mg subcut QDL 06/13/22 09/03/22 History mL) subcutaneous pen injector (RunMyProcessza 3-Fady) metoprolol succinate 100 mg 100 mg PO BID #180 tabs 06/13/22 09/03/22 Rx tablet,extended release 24 hr (Toprol XL) sacubitril 49 mg-valsartan 51 mg 1 tab PO BID #180 tabs 08/28/22 09/03/22 Rx tablet (Entresto) insulin glargine U-300 conc 300 20 unit subcut DAILY 09/03/22 09/03/22 History unit/mL (1.5 mL) subcutaneous pen (Toujeo SoloStar U-300 Insulin) Allergies Allergy/AdvReac Type Severity Reaction Status Date / Time spironolactone Allergy Severe Extreme Unverified 09/03/22 09:39 diarrhea pyridostigmine Allergy Mild Vomiting Verified 09/02/22 12:00 Past Med/Surg History Medical History Atrial fibrillation CAD (coronary artery disease) s/p CABG x3 with IMMANUEL clip (04/2021) Follows with Dr. Hagan Diabetic retinopathy Eye problem Pt c/o ongoing issue with his vision. states he's been worked up for myesthenia gravis & 4th nerve palsy but no official diagnosis GERD (gastroesophageal reflux disease) rare, stable per pt History of blood transfusion 2021 History of rectal abscess > 20 yrs ago Hypertension controlled, stable per pt Ischemic cardiomyopathy EF 30-35% Pulmonary hypertension mild, PASP 45-50 mmHg Sleep apnea CPAP-compliant Type 2 diabetes mellitus IDDM Venous stasis ulcer BLLE (hx) - [place] [facility] in past 2021 Venous stasis ulcers of both lower extremities Surgical History History of cardiac catheterization 02/2021 [place] > CABG History of coronary artery bypass graft x 3 04/22/2021 History of incision and drainage rectal abscess S/P tonsillectomy Family History Father Prostate cancer Myocardial infarction Coronary arteriosclerosis Other Family history non-contributory No family history of adverse response to anesthesia Denies family history of Colon cancer Ovarian cancer Breast cancer Social History Smoking Status: Never smoker Second Hand Exposure: No (as a child); Do You Dip or Chew Tobacco: No; Hx Alcohol Use: Yes Hx Substance Use: No Preferred Language: Malian Communication Ability: Effective Visual Impairment: Diminished Hearing Ability: Normal Cushion Assembler Required: No Beliefs That Will Affect Care: None marital status: Current Living Situation: Spouse current occupational status: retired Feels Safe at Home: Yes Diet: regular caffeine: No during the past year weight has: decreased > 10 lbs Physical Activity Frequency: Does not Exercise Seatbelt Use: always Do you think of yourself as: straight/heterosexual Gender Identity: Male Assistive Devices: Walker Physical Exam Vital Signs Vital Signs - 24 hr 09/03/22 08:29 09/03/22 08:50 09/03/22 09:00 Temperature 36.5 C Temperature Source Oral Pulse Rate 111 H Pulse Rate [Apical] 108 H Pulse Rhythm [Apical] Respiratory Rate 20 16 Respiratory Effort / Characteristics Non-Labored Respiratory Depth Normal Normal Blood Pressure 176/86 H Blood Pressure [Right Arm] 166/115 H Blood Pressure Mean 116 Blood Pressure Mean [Right Arm] 132 Pulse Oximetry 96 98 98 Oxygen Delivery Method Room Air Room Air Room Air Oxygen Flow Rate Sepsis Recent Fever Within 48 Hours No Sepsis New/Unexplained Change in Mental Status No Sepsis Action Taken by Nursing No Action Required Oxygen Flow Rate - Titration Pulse Oximetry Post Tiitration 09/03/22 09:10 09/03/22 09:25 09/03/22 09:28 Temperature Temperature Source Pulse Rate 115 H Pulse Rate [Apical] 110 H Pulse Rhythm [Apical] Regular Respiratory Rate 16 Respiratory Effort / Characteristics Non-Labored Spontaneous Respiratory Depth Normal Blood Pressure Blood Pressure [Right Arm] 167/113 H Blood Pressure Mean Blood Pressure Mean [Right Arm] 131 Pulse Oximetry 86 L Oxygen Delivery Method Room Air Nasal Cannula Oxygen Flow Rate Sepsis Recent Fever Within 48 Hours Sepsis New/Unexplained Change in Mental Status Sepsis Action Taken by Nursing Oxygen Flow Rate - Titration 2 Pulse Oximetry Post Tiitration 96 09/03/22 11:00 09/03/22 12:00 09/03/22 13:16 Temperature Temperature Source Pulse Rate 105 H Pulse Rate [Apical] 108 H 102 H Pulse Rhythm [Apical] Respiratory Rate 16 16 Respiratory Effort / Characteristics Non-Labored Non-Labored Respiratory Depth Normal Normal Blood Pressure Blood Pressure [Right Arm] 167/110 H 139/100 Blood Pressure Mean Blood Pressure Mean [Right Arm] 129 113 Pulse Oximetry 98 95 Oxygen Delivery Method Room Air Room Air Oxygen Flow Rate Sepsis Recent Fever Within 48 Hours Sepsis New/Unexplained Change in Mental Status Sepsis Action Taken by Nursing Oxygen Flow Rate - Titration Pulse Oximetry Post Tiitration 09/03/22 13:55 09/03/22 15:30 Temperature Temperature Source Pulse Rate Pulse Rate [Apical] 101 H 114 H Pulse Rhythm [Apical] Regular Respiratory Rate 16 18 Respiratory Effort / Characteristics Non-Labored Respiratory Depth Normal Blood Pressure Blood Pressure [Right Arm] 144/92 H 158/101 H Blood Pressure Mean Blood Pressure Mean [Right Arm] 109 120 Pulse Oximetry 100 99 Oxygen Delivery Method Nasal Cannula Room Air Oxygen Flow Rate 2 Sepsis Recent Fever Within 48 Hours Sepsis New/Unexplained Change in Mental Status Sepsis Action Taken by Nursing Oxygen Flow Rate - Titration Pulse Oximetry Post Tiitration CONSTITUTIONAL: Healthy and well nourished. Patient appears in moderate discomfort. HEENT: Normocephalic, atraumatic. No scleral icterus or conjunctival injection/pallor. Mucous membranes are dry. RESPIRATORY: Clear to auscultation bilaterally with no wheezing, crackles, rhonchi or stridor. CARDIOVASCULAR: Regular rate and rhythm with no murmurs, rubs or gallops. GASTROINTESTINAL: Bowel sounds present in all quadrants. Patient has diffuse central abdominal tenderness to palpation without rigidity, guarding or rebound. Negative McBurney's point tenderness. MUSCULOSKELETAL: Full range of motion of all joints without discomfort. INTEGUMENTARY: No rash or other significant dermatologic conditions noted. HEMATOLOGIC: No ecchymosis or petechiae. PSYCHIATRIC: Positive affect. NEUROLOGIC: No focal neurologic deficits noted. Course Course Patient history and physical exam were performed. Nurses notes were reviewed. Vital signs were reviewed, showing a markedly elevated blood pressure 166/115. He is also tachycardic at 115 bpm. The patient is not hypoxic or tachypneic. IV access was established, and labs are drawn. The patient was hydrated with a liter of normal saline, and administered IV morphine and Zofran for pain. An ECG was performed, showing a atrial fibrillation with a rate of 116 bpm. The patient was placed on corporate development analyst while in the emergency department. A portable chest x-ray was performed and was normal. Review of labs shows a normal white count. CMP shows mildly elevated total bilirubin with normal LFTs and lipase. Glucose is elevated at 167. Urinalysis shows 2+ proteinuria and ketonuria without hematuria or signs of infection. A CT with IV contrast of the abdomen and pelvis is suggestive of an acute cholecystitis with cholelithiasis and moderate pericholecystic stranding and infiltration. A right upper quadrant ultrasound was recommended by a radiologist. CT imaging did not show any other acute findings. Findings were discussed with the patient, who agreed to undergo ultrasound studies, which showed an equivocal cholecystitis without common bile duct dilatation or significant gallbladder wall thickening. Findings were discussed with the patient, as well as Shraddha Fallon PA-C with general surgeon, Dr. Trotter. Given the patient's clinical findings, as well as history of coronary artery disease, surgery service recommended hospitalist admission for a HIDA scan and possible surgical clearance. Patient was in agreement with this plan. The case was then discussed with our Condenser Setter, who reached out to the [facility] Hospitalist service, who will evaluate the patient. Please see their dictations for further treatment and final disposition. After the patient was evaluated by general surgery and the hospitalist, the patient indicated that he would like to have an outpatient HIDA scan ordered. The hospitalist asked that I go back in and speak with the patient. I explained to the patient and that an outpatient HIDA scan has to be scheduled, and could take several weeks to complete. I indicated that if he was admitted to the hospital, this would be done tomorrow. I also explained that the department has limited hours and would not be able to do that yet this evening. The and indicated that they did not know anything about the general surgeon on-call, and thought about going to another facility. I explained that they certainly could do so, however when they got to a different facility, they would do the exact same work-up. I did recommend that he be admitted overnight, and a HIDA scan could be performed tomorrow to determine if this requires an emergent cholecystectomy. The patient then related multiple experiences that he has had in the past with prior admissions. He wanted a private room. He also wanted something to eat and drink. This information was relayed back to Dr. France and the general surgery team. Administered Medications Discontinued Medications Sodium Chloride (Nss 1000ml) 1,000 mls @ 999 mls/hr IV .Q1H1M STA Stop: 09/03/22 10:02 Last Infusion: 09/03/22 10:08 Dose: 0 mls/hr Documented By: Admin: 09/03/22 09:17 Dose: 999 mls/hr Documented By: BERTHA Famotidine (Pepcid 20mg Iv Push) 20 mg in 5 mls @ 2.5 mls/min IV NOW STA Stop: 09/03/22 14:54 Last Admin: 09/03/22 15:54 Dose: 2.5 mls/min Documented By: KELLEN Ioversol (Optiray 320 100ml) 94 ml IV ONCE ONE Stop: 09/03/22 11:57 Last Admin: 09/03/22 11:56 Dose: 94 ml Documented By: COLEEN Morphine Sulfate (Morphine Sulfate 4 Mg/Ml 1 Ml Carp\\Vial) 4 mg IV NOW STA Stop: 09/03/22 09:03 Last Admin: 09/03/22 09:18 Dose: 4 mg Documented By: BERTHA Ondansetron HCl (Ondansetron Inj 2 Mg/Ml 2 Ml Vial) 4 mg IV NOW STA Stop: 09/03/22 09:03 Last Admin: 09/03/22 09:17 Dose: 4 mg Documented By: BERTHA Medical Decision Making Medical Records Attestation: I reviewed the patient's medical records. Home Medications was personally reviewed by me Laboratory Data Attestation: I reviewed the patient's lab results. 09/03/22 08:55 09/03/22 08:55 Lab Results 09/03/22 09/03/22 09/03/22 Range/Units 08:55 08:55 08:55 WBC 10.69 (4.8-10.8) K/ul RBC 3.80 L (4.70-6.10) M/uL Hgb 12.6 L (14.0-18.0) g/dl Hct 37.1 L (42.0-52.0) % MCV 97.6 (80.0-100.0) fL MCH 33.2 (25.0-34.0) pg MCHC 34.0 (32.0-36.0) g/dL RDW Std Deviation 47.7 H (36.4-46.3) fL RDW Coeff of Bart 13.2 (11.5-14.5) % Plt Count 217 (130-400) K/uL MPV 11.2 (9.4-12.4) fL Immature Gran % (Auto) 0.4 % Neut % (Auto) 83.0 % Lymph % (Auto) 7.9 % Day % (Auto) 8.0 % Eos % (Auto) 0.4 % Baso % (Auto) 0.3 % Neut # (Auto) 8.89 H (1.40-6.50) K/uL Lymph # (Auto) 0.84 L (1.2-3.4) K/uL Day # (Auto) 0.85 H (0.11-0.59) K/uL Eos # (Auto) 0.04 (0-0.50) K/uL Baso # (Auto) 0.03 (0-0.2) K/uL Immature Gran # (Auto) 0.04 (0.01-0.20) K/uL PT 12.2 H (9.0-12.0) Seconds INR 1.1 (0.9-1.1) Sodium 140 (136-145) mmol/L Potassium 4.1 (3.5-5.1) mmol/L Chloride 102 (98-107) mmol/L Carbon Dioxide 27 (21-32) mmol/L Anion Gap 11 (3-11) BUN 17 (6-23) mg/dl Creatinine 0.91 (0.6-1.4) mg/dl Est Cr Clr Drug Dosing 86.1 ml/min Est GFR ( Amer) 95.9 ml/min Est GFR (Non-Af Amer) 82.7 ml/min BUN/Creatinine Ratio 18.7 (10-20) Glucose 167 H (70-99(Fasting)) mg/dl Calcium 9.4 (8.6-10.3) mg/dl Magnesium (1.7-2.4) mg/dl Total Bilirubin 1.1 H (0.2-1.0) mg/dl AST 23 (13-39) U/L ALT 15 (7-52) U/L Alkaline Phosphatase 87 (34-104) U/L Troponin I High Sens 10.6 (0-20) pg/ml Total Protein 7.0 (6.0-8.3) gm/dl Albumin 4.0 (3.4-5.0) gm/dl Globulin 3.0 (2.5-4.0) gm/dl Albumin/Globulin Ratio 1.3 (0.9-2) Lipase 11 (11-82) U/L Urine Color Urine Appearance (Clear) Urine pH (4.5-7.5) Ur Specific [place] (1.000-1.030) Urine Protein (Negative) Urine Glucose (UA) (Negative) Urine Ketones (Negative) Urine Blood (Negative) Urine Nitrite (Negative) Urine Bilirubin (Negative) Urine Urobilinogen (Negative) Ur Leukocyte Esterase (Negative) Urine WBC (Auto) (0-5) /hpf Urine RBC (Auto) (0-4) /hpf U Hyaline Cast (Auto) (0-5) /lpf U Epithel Cells (Auto) (0-5) /lpf Urine Bacteria (Auto) (Negative) 09/03/22 09/03/22 Range/Units 16:09 Unknown WBC (4.8-10.8) K/ul RBC (4.70-6.10) M/uL Hgb (14.0-18.0) g/dl Hct (42.0-52.0) % MCV (80.0-100.0) fL MCH (25.0-34.0) pg MCHC (32.0-36.0) g/dL RDW Std Deviation (36.4-46.3) fL RDW Coeff of Bart (11.5-14.5) % Plt Count (130-400) K/uL MPV (9.4-12.4) fL Immature Gran % (Auto) % Neut % (Auto) % Lymph % (Auto) % Day % (Auto) % Eos % (Auto) % Baso % (Auto) % Neut # (Auto) (1.40-6.50) K/uL Lymph # (Auto) (1.2-3.4) K/uL Day # (Auto) (0.11-0.59) K/uL Eos # (Auto) (0-0.50) K/uL Baso # (Auto) (0-0.2) K/uL Immature Gran # (Auto) (0.01-0.20) K/uL PT (9.0-12.0) Seconds INR (0.9-1.1) Sodium (136-145) mmol/L Potassium (3.5-5.1) mmol/L Chloride (98-107) mmol/L Carbon Dioxide (21-32) mmol/L Anion Gap (3-11) BUN (6-23) mg/dl Creatinine (0.6-1.4) mg/dl Est Cr Clr Drug Dosing ml/min Est GFR ( Amer) ml/min Est GFR (Non-Af Amer) ml/min BUN/Creatinine Ratio (10-20) Glucose (70-99(Fasting)) mg/dl Calcium (8.6-10.3) mg/dl Magnesium 1.8 (1.7-2.4) mg/dl Total Bilirubin (0.2-1.0) mg/dl AST (13-39) U/L ALT (7-52) U/L Alkaline Phosphatase (34-104) U/L Troponin I High Sens (0-20) pg/ml Total Protein (6.0-8.3) gm/dl Albumin (3.4-5.0) gm/dl Globulin (2.5-4.0) gm/dl Albumin/Globulin Ratio (0.9-2) Lipase (11-82) U/L Urine Color Yellow Urine Appearance Clear (Clear) Urine pH 6.0 (4.5-7.5) Ur Specific [place] 1.037 H (1.000-1.030) Urine Protein 2+ H (Negative) Urine Glucose (UA) Negative (Negative) Urine Ketones 2+ H (Negative) Urine Blood Negative (Negative) Urine Nitrite Negative (Negative) Urine Bilirubin Negative (Negative) Urine Urobilinogen Negative (Negative) Ur Leukocyte Esterase Negative (Negative) Urine WBC (Auto) 1-5 (0-5) /hpf Urine RBC (Auto) 5-10 H (0-4) /hpf U Hyaline Cast (Auto) 1-5 (0-5) /lpf U Epithel Cells (Auto) 20-30 H (0-5) /lpf Urine Bacteria (Auto) Negative (Negative) Imaging Data Attestation: I personally reviewed and interpreted this imaging study as follows: My Impression: My interpretation of a CT with IV contrast of the abdomen and pelvis shows cholelithiasis with possible acute cholecystitis with pericholecystic stranding, infiltration and cholelithiasis. I do not see any diverticulitis, bowel obstruction, appendicitis or free air. Radiologist did recommend right upper quadrant ultrasound. My interpretation of the right upper quadrant ultrasound shows Radiologist reports were also reviewed with concurrence. Radiologist's Impression: Abdomen/Pelvis CT 09/03/22 09:02 CT OF THE ABDOMEN AND PELVIS WITH CONTRAST CLINICAL HISTORY: Abdominal pain, nausea and vomiting. COMPARISON STUDY: CT of the abdomen and pelvis July 10, 2008. TECHNIQUE: Following IV administration of 94 mL of Optiray, axial images of the abdomen and pelvis were obtained from the lung bases to the proximal femurs. Images were reviewed in the axial, sagittal, and coronal planes. IV contrast was administered without complication. Automated exposure control was utilized for the study. A dose lowering technique was utilized adhering to the principles of ALARA. CT DOSE: 1619.97 mGy.cm FINDINGS: There are trace bilateral pleural effusions. Interlobular septal thickening within the lower lungs is noted. There is moderate cardiomegaly coronary artery calcification. There are median sternotomy wires and postoperative findings from bypass grafting. No pneumatosis, free air or portal venous gas is present. There is no biliary or pancreatic ductal dilatation. There is a suspected 7 mm stone within the gallbladder. There is mild mucosal enhancement of the gallbladder. The gallbladder is not significantly distended h owever there is moderate pericholecystic fluid/edema. There is also edema within the raven hepatis. A few prominent raven hepatis lymph nodes are noted. These may be reactive. There is a 1.8 cm left renal cyst. No hydronephrosis is present. Spleen, adrenal glands and right kidney are unremarkable. There is no pancreatic ductal dilatation. There is mild stranding adjacent to the pancreatic head. However, the findings do not strongly suggest acute pancreatitis. Right hip arthroplasty is noted. There is extensive colonic diverticulosis without evidence for acute diverticulitis. There is no evidence for a bowel obstruction. Duodenal diverticulum is present. The appendix is normal. There is a fat- containing umbilical hernia. Fat-containing bilateral inguinal hernias, left larger than right. No acute fractures within visualized skeletal structures are present. IMPRESSION: 1. Cholelithiasis with moderate pericholecystic stranding and infiltration. The findings suggest acute cholecystitis however are nonspecific and other etiologies such as right heart dysfunction/volume overload could result in a similar imaging appearance. Further evaluation with right upper quadrant ultrasound is recommended. No biliary ductal dilatation. 2. Evidence for interstitial pulmonary edema within the lower chest. Trace bilateral pleural effusions. Trace perihepatic ascites. 3. Extensive colonic diverticulosis. No evidence for acute diverticulitis. 4. Normal appendix. No bowel obstruction. ACT 112: Negative or not required by law. Electronically signed by: Ryan Quick M.D. 09/03/2022 12:40 PM Chest X-Ray 09/03/22 09:03 XR chest 1V portable HISTORY: 76 years-old Male Abd pain, N/V acute chest and abdominal pain COMPARISON: 05/30/2022 TECHNIQUE: AP view of the chest FINDINGS: Cardiomegaly with prior median sternotomy. Left atrial exclusion device. Unchanged right hemidiaphragmatic elevation. Chronic interstitial coarsening without pneumothorax, large pleural effusion or lobar airspace consolidation. Degenerative changes of the shoulders and spine. IMPRESSION: No acute process. ACT 112: Negative or not required by law. The above report was generated using voice recognition software. It may contain grammatical, syntax or spelling errors. Electronically signed by: Ezra Hong M.D. 09/03/2022 9:19 AM Gallbladder Ultrasound 09/03/22 12:46 US gallbladder CLINICAL HISTORY: Possible cholecystitis on CT. COMPARISON STUDY: CT of the abdomen and pelvis performed earlier today. FINDINGS: Liver is sonographically normal. This exam is mildly compromised by suboptimal penetration. The pancreas is obscured. Gallstones and sludge within the gallbladder are present. There is mild gallbladder wall thickening. The wall measures 4 mm in thickness. There is trace pericholecystic fluid. No sonographic Eckert sign was elicited. There is no right hydronephrosis. No biliary ductal dilatation is present IMPRESSION: 1. Gallstones and sludge within the gallbladder with mild gallbladder wall thickening. However, no sonographic Eckert sign. These findings are equivocal for acute cholecystitis. A nuclear medicine hepatobiliary scan could be obtained if indicated. 2. No biliary ductal dilatation. ACT 112: Negative or not required by law. Electronically signed by: Ryan Quick M.D. 09/03/2022 2:10 PM ECG Data Attestation: I personally reviewed and interpreted this ECG as follows: Indication: + abdominal pain and + tachycardia Rate (beats per minute): 116 Rhythm: + atrial fibrillation ECG Intervals/blocks: + Normal QRS, + Normal QT and + Normal [place] ECG [place]: + Normal ECG ST segments: + Normal ST segments Comparison ECG Date: from (05/30/2022) Change: no significant change MDM Narrative Cardiac monitoring: An order was placed for continuous cardiac monitoring. The monitor shows a rate of 116 bpm with atrial fibrillation. curve cleaner history was reviewed throughout the evaluation, and no dysrhythmias were noted. See ED Course section for further details of today's visit. The patient presents for evaluation of central abdominal discomfort last night, along with nausea and vomiting. Today's initial CT scan was concerning for possible acute cholecystitis, with subsequent gallbladder ultrasound equivocal for cholecystitis. Patient does have a minimally elevated total bilirubin, otherwise LFTs and lipase are normal. Patient has no leukocytosis or fever to suggest infection. Cardiopulmonary work-up was also normal other than atrial fibrillation which is known for the patient. His triage heart rate was 116 bpm, which was reduced to the 90s on my last encounter with the patient. The case was discussed with general surgery, who recommended a HIDA scan and possible surgical clearance pending HIDA scan results. Impression Gallstones, Atrial fibrillation, Acute upper abdominal pain Discharge Plan Visit Data Chief Complaint: Abdominal Pain Stated Complaint: VOMITING, ABDOMINAL PAIN, ED Provider: Antonio Al ED Midlevel Provider: Beau Sharp Discharge Problem: Gallstones, Atrial fibrillation, Acute upper abdominal pain Forms Stand Alone Forms: My [facility] Prescriptions Prescriptions: No Action Entresto 49-51 mg tablet 1 tab PO BID Qty: 180 3RF furosemide [Lasix] 20 mg tablet 40 mg PO DAILY metoprolol succinate [Toprol XL] 100 mg tablet extended release 24 hr 100 mg PO BID Qty: 180 3RF triamcinolone acetonide 0.1 % ointment 1 applic TOP DAILY PRN (Reason: ud) Rx Instructions: Apply to both arms once daily (DME) pen needle, diabetic [BD Ultra-Fine Shagufta Pen Needle] 32 gauge x 5/32" needle See Rx Instructions .ROUTE .MEDSUPPLY Qty: 200 3RF Rx Instructions: Use to inject Vitoza and Tujeo DAILY atorvastatin 40 mg tablet 40 mg PO QDL multivitamin Tablet 1 tab PO QDL Eliquis 5 mg tablet 5 mg PO BID Victoza 3-Fady 0.6 mg/0.1 mL (18 mg/3 mL) pen injector 1.2 mg subcut QDL [employer] SoloStar U-300 Insulin 300 unit/mL (1.5 mL) insulin pen 20 unit SUBCUT DAILY Referrals Referrals: Pro,Matteo Harrison MD [Primary Care Provider] -
--- NOTE | 2022-09-03 09:20 | XRay Report ---
XR chest 1V portable HISTORY: 76 years-old Male Abd pain, N/V acute chest and abdominal pain COMPARISON: 05/30/2022 TECHNIQUE: AP view of the chest FINDINGS: Cardiomegaly with prior median sternotomy. Left atrial exclusion device. Unchanged right hemidiaphrag matic elevation. Chronic interstitial coarsening without pneumothorax, large pleural effusion or loba r airspace consolidation. Degenerative changes of the shoulders and spine. IMPRESSION: No acute process. ACT 112: Negative or not required by law. The above report was generated using voice recognition software. It may contain grammatical, syntax o r spelling errors. Electronically signed by: Ezra Hong M.D. 09/03/2022 9:19 AM
[2022-09-03 09:40] LABS: Basophils # (auto) 0.03 K/uL (0-0.2); Basophils % (auto) 0.3 %; Eosinophils # (auto) 0.04 K/uL (0-0.50); Eosinophils % (auto) 0.4 %; Hematocrit (blood only) 37.1 % (42.0-52.0); Hemoglobin 12.6 g/dl (14.0-18.0); Immature Granulocytes # (auto) 0.04 K/uL (0.01-0.20); Immature Granulocytes % (auto) 0.4 %; Lymphocytes # (auto) 0.84 K/uL (1.2-3.4); Lymphocytes % (auto) 7.9 %; Mean Corpuscular Hemoglobin 33.2 pg (25.0-34.0); Mean Corpuscular Volume 97.6 fL (80.0-100.0); Mean Platelet Volume 11.2 fL (9.4-12.4); Monocytes # (auto) 0.85 K/uL (0.11-0.59); Neutrophils # (auto) 8.89 K/uL (1.40-6.50); Platelet Count 217 K/uL (130-400); RDW Coefficient of Variation 13.2 % (11.5-14.5); RDW Standard Deviation 47.7 fL (36.4-46.3); White Blood Count 10.69 K/ul (4.8-10.8)
[2022-09-03 09:58] LABS: Albumin Globulin Ratio 1.3 (0.9-2); BUN Creatinine Ratio 18.7 (10-20); Bilirubin,Total 1.1 mg/dl (0.2-1.0); Calcium 9.4 mg/dl (8.6-10.3); Creatinine Clr Calc Pharmacy 86.1 ml/min; Est GFR (African American) 95.9 ml/min; Est GFR (Non-African American) 82.7 ml/min; Potassium 4.1 mmol/L (3.5-5.1)
[2022-09-03 10:04] LABS: Troponin I High Sensitivity 10.6 pg/ml (0-20)
[2022-09-03 10:08] LABS: INR 1.1 (0.9-1.1); Prothrombin Time 12.2 Seconds (9.0-12.0)
--- NOTE | 2022-09-03 11:19 | Electrocardiogram Report ---
Test Reason : Blood Pressure : / mmHG Vent. 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
[2022-09-03] MEDS ORDERED: OPTIRAY 320 100ml IV ONE (11:56)
[2022-09-03 12:37] LABS: Appearance Urine Clear (Clear); Bacteria Urine Automated Negative (Negative); Bilirubin Urine Negative (Negative); Blood Urine Negative (Negative); Color Urine Yellow; Epithelial Cell Urine Auto 20-30 /lpf (0-5); Glucose Urine UA Negative (Negative); Ketones Urine 2+ (Negative); Leukocyte Esterase Urine Negative (Negative); Nitrite Urine Negative (Negative); Protein Urine 2+ (Negative); Specific Gravity Urine 1.037 (1.000-1.030); Urobilinogen Urine Negative (Negative)
--- NOTE | 2022-09-03 12:42 | CT Scan Report ---
CT OF THE ABDOMEN AND PELVIS WITH CONTRAST CLINICAL HISTORY: Abdominal pain, nausea and vomiting. COMPARISON STUDY: CT of the abdomen and pelvis July 10, 2008. TECHNIQUE: Following IV administration of 94 mL of Optiray, axial images of the abdomen and pelvis we re obtained from the lung bases to the proximal femurs. Images were reviewed in the axial, sagittal, and coronal planes. IV contrast was administered without complication. Automated exposure control wa s utilized for the study. A dose lowering technique was utilized adhering to the principles of ALARA . CT DOSE: 1619.97 mGy.cm FINDINGS: There are trace bilateral pleural effusions. Interlobular septal thickening within the lowe r lungs is noted. There is moderate cardiomegaly coronary artery calcification. There are median ster notomy wires and postoperative findings from bypass grafting. No pneumatosis, free air or portal veno us gas is present. There is no biliary or pancreatic ductal dilatation. There is a suspected 7 mm sto ne within the gallbladder. There is mild mucosal enhancement of the gallbladder. The gallbladder is n ot significantly distended however there is moderate pericholecystic fluid/edema. There is also edema within the raven hepatis. A few prominent raven hepatis lymph nodes are noted. These may be reactive . There is a 1.8 cm left renal cyst. No hydronephrosis is present. Spleen, adrenal glands and right k idney are unremarkable. There is no pancreatic ductal dilatation. There is mild stranding adjacent to the pancreatic head. However, the findings do not strongly suggest acute pancreatitis. Right hip art hroplasty is noted. There is extensive colonic diverticulosis without evidence for acute diverticulit is. There is no evidence for a bowel obstruction. Duodenal diverticulum is present. The appendix is n ormal. There is a fat-containing umbilical hernia. Fat-containing bilateral inguinal hernias, left la rger than right. No acute fractures within visualized skeletal structures are present. IMPRESSION: 1. Cholelithiasis with moderate pericholecystic stranding and infiltration. The findings suggest acut e cholecystitis however are nonspecific and other etiologies such as right heart dysfunction/volume o verload could result in a similar imaging appearance. Further evaluation with right upper quadrant ul trasound is recommended. No biliary ductal dilatation. 2. Evidence for interstitial pulmonary edema within the lower chest. Trace bilateral pleural effusion s. Trace perihepatic ascites. 3. Extensive colonic diverticulosis. No evidence for acute diverticulitis. 4. Normal appendix. No bowel obstruction. ACT 112: Negative or not required by law. Electronically signed by: Ryna Quick M.D. 09/03/2022 12:40 PM
--- NOTE | 2022-09-03 14:11 | Ultrasound Report ---
US gallbladder CLINICAL HISTORY: Possible cholecystitis on CT. COMPARISON STUDY: CT of the abdomen and pelvis performed earlier today. FINDINGS: Liver is sonographically normal. This exam is mildly compromised by suboptimal penetration. The pancreas is obscured. Gallstones and sludge within the gallbladder are present. There is mild ga llbladder wall thickening. The wall measures 4 mm in thickness. There is trace pericholecystic fluid. No sonographic Eckert sign was elicited. There is no right hydronephrosis. No biliary ductal dilatat ion is present IMPRESSION: 1. Gallstones and sludge within the gallbladder with mild gallbladder wall thickening. However, no so nographic Eckert sign. These findings are equivocal for acute cholecystitis. A nuclear medicine hepat obiliary scan could be obtained if indicated. 2. No biliary ductal dilatation. ACT 112: Negative or not required by law. Electronically signed by: Ryan Quick M.D. 09/03/2022 2:10 PM
[2022-09-03] MEDS ORDERED: FAMOTIDINE 20MG IV PUSH 20 MG/5 ML SYR IV STA (14:53)
--- NOTE | 2022-09-03 15:52 | History & Physical Report ---
Date of Service September 03, 2022 Assessment & Plan (1) Acute upper abdominal pain: Plan: Unclear etiology on admission but biliary colic remains in diagnosis. Doubtful acute cholecystitis given lack of current pain on exam or WBC therefore antibiotics deferred. Since pain now resolved will defer any further treatment for GERD (famotidine IV given in the ER) Intermittent for the last month with gallstones and sludge - surgery recommending observation with HIDA in AM Consult surgery (2) Atrial fibrillation: Plan: Increased rate due to not taking his usual medications this morning. Will continue on his usual rate control with metoprolol. Holding Eliquis in case of need of operation Suspect mildly elevated troponin due to missing his metoprolol dose this morning and increased rate - no chest pain to suggest ACS (3) Ischemic cardiomyopathy: Plan: Continue metoprolol succinate and Entresto (4) Chronic systolic (congestive) heart failure: Plan: Continue metoprolol and Lasix Avoid further IV fluids (1L NSS bolus given in the ER) (5) Type 2 diabetes mellitus: Plan: HbA1C 6.0 in June, no need to repeat Hold liraglutide and Toujeo (last took last night) Novolog: --Goal BSG Range: Low 110 mg/dL, High 140 mg/dL --Correction Factor: 40 mg/dL/unit --Carbohydrate ratio = 13 g/unit --BSGs ACHS if eating, q6h if npo Add basal if requiring frequent dosing (6) Sleep apnea: Plan: May use own CPAP Plan VTE Prophylaxis - Holding Eliquis in case of need of operation at this time Diet - Low Na, T2DM, heart healthy, NPO after midnight Disposition - observation to med/tele Admission and Anticipated Discharge Date Admission Date: September 03, 2022 History of Present Illness Chief Complaint: Abdominal pain Primary Care Provider: Matteo Young MD Eduardo Tran is a 76 year old male who presents to the ER with abdominal pain. He reports similar pain intermittently since July that would last for an hour, approximately occurring once a week or every two weeks. No association with food. However current pain lasted much longer since 11pm yesterday until he received morphine in the ER. Initially it was 9/10 severity, getting progressively worse and constant until 2am with severity 10/10. Now resolved after morphine given in the ER. He took Zofran, Pepto-bismol and two Tylenol - did not help. Not positional. Associated nausea and vomited x4, small volume, no hematemesis. 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 Allergies Allergy/AdvReac Type Severity Reaction Status Date / Time spironolactone Allergy Severe Extreme Unverified 09/03/22 09:39 diarrhea pyridostigmine Allergy Mild Vomiting Verified 09/02/22 12:00 Home Medications Medication Instructions Recorded Confirmed Type triamcinolone acetonide 0.1 % 1 applic topical DAILY PRN ud 03/04/22 09/03/22 History topical ointment atorvastatin 40 mg tablet 40 mg PO QDL 04/23/22 09/03/22 History multivitamin 1 tab PO QDL 04/23/22 09/03/22 History pen needle, diabetic 32 gauge x #200 ea 04/29/22 09/02/22 Rx 5/32" (BD Ultra-Fine [place] Pen Needle) apixaban 5 mg tablet (Eliquis) 5 mg PO BID 05/30/22 09/03/22 History furosemide 20 mg tablet (Lasix) 40 mg PO DAILY 06/13/22 09/03/22 History liraglutide 0.6 mg/0.1 mL (18 mg/3 1.2 mg subcut QDL 06/13/22 09/03/22 History mL) subcutaneous pen injector (Victoza 3-Fady) metoprolol succinate 100 mg 100 mg PO BID #180 tabs 06/13/22 09/03/22 Rx tablet,extended release 24 hr (Toprol XL) sacubitril 49 mg-valsartan 51 mg 1 tab PO BID #180 tabs 08/28/22 09/03/22 Rx tablet (Entresto) insulin glargine U-300 conc 300 20 unit subcut DAILY 09/03/22 09/03/22 History unit/mL (1.5 mL) subcutaneous pen (Toujeo SoloStar U-300 Insulin) Past Med/Surg History Medical History (Updated 09/04/22 @ 06:49 by Alex France MD) Atrial fibrillation CAD (coronary artery disease) s/p CABG x3 with IMMANUEL clip (04/2021) Follows with Dr. Hagan Diabetic retinopathy Eye problem Pt c/o ongoing issue with his vision. states he's been worked up for myesthenia gravis & 4th nerve palsy but no official diagnosis GERD (gastroesophageal reflux disease) rare, stable per pt History of blood transfusion 2021 History of rectal abscess > 20 yrs ago Hypertension controlled, stable per pt Ischemic cardiomyopathy EF 30-35% Pulmonary hypertension mild, PASP 45-50 mmHg Sleep apnea CPAP-compliant Type 2 diabetes mellitus IDDM Venous stasis ulcer BLLE (hx) - [place] [facility] in past 2021 Venous stasis ulcers of both lower extremities Surgical History History of cardiac catheterization 02/2021 [place] > CABG History of coronary artery bypass graft x 3 04/22/2021 History of incision and drainage rectal abscess S/P tonsillectomy Family History Father Prostate cancer Myocardial infarction Coronary arteriosclerosis Other Family history non-contributory No family history of adverse response to anesthesia Denies family history of Colon cancer Ovarian cancer Breast cancer Social History Smoking Status: Never smoker Second Hand Exposure: No (as a child); Do You Dip or Chew Tobacco: No; Hx Alcohol Use: No Hx Substance Use: No Preferred Language: Tajik Communication Ability: Effective Visual Impairment: Diminished Hearing Ability: Normal 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: No Beliefs That Will Affect Care: None marital status: Current Living Situation: Spouse current occupational status: retired Other Information That Helps Us Care for You: No Feels Safe at Home: Yes Safety Concerns: Feels Safe At This Time Diet: regular caffeine: No during the past year weight has: decreased > 10 lbs Physical Activity Frequency: Does not Exercise Seatbelt Use: always Do you think of yourself as: straight/heterosexual Gender Identity: Male Assistive Devices: CPAP Review of Systems Review of Systems: All systems reviewed & are unremarkable except as noted in HPI & below Physical Exam Constitutional: WD/WN, vitals as above ENMT: external ear and nose normal, oropharynx normal Respiratory: normal respiratory effort, lungs clear to auscultation Cardiovascular: Rate/Rhythm: + tachycardic and + irregularly irregular Heart Sounds: no murmur Extremities: normal capillary refill and + pedal edema; no calf tenderness Gastrointestinal (Abdomen): normal bowel sounds, soft, nontender, no hepatosplenomegaly Skin: no rashes, warm and dry Neurologic: moves all extremities and awake; not confused Psychiatric: A+Ox3, euthymic affect Results & Data Results & Data Vital Signs (Past 12 Hours) Vital Signs Temp Pulse Pulse Resp BP BP Pulse Ox 09/03/22 13:55 101 H 16 144/92 H 100 09/03/22 13:16 105 H 09/03/22 12:00 102 H 16 139/100 95 09/03/22 11:00 108 H 16 167/110 H 98 09/03/22 09:28 09/03/22 09:25 110 H 16 167/113 H 86 L 09/03/22 09:10 115 H 09/03/22 09:00 108 H 16 166/115 H 98 09/03/22 08:50 98 09/03/22 08:29 36.5 C 111 H 20 176/86 H 96 O2 Del Method O2 Flow Rate 09/03/22 13:55 Nasal Cannula 2 09/03/22 13:16 09/03/22 12:00 Room Air 09/03/22 11:00 Room Air 09/03/22 09:28 Nasal Cannula 09/03/22 09:25 Room Air 09/03/22 09:10 09/03/22 09:00 Room Air 09/03/22 08:50 Room Air 09/03/22 08:29 Room Air Laboratory Results Abnormal lab results 09/03/22 09/03/22 09/03/22 Range/Units 08:55 08:55 08:55 RBC 3.80 L (4.70-6.10) M/uL Hgb 12.6 L (14.0-18.0) g/dl Hct 37.1 L (42.0-52.0) % RDW Std Deviation 47.7 H (36.4-46.3) fL Neut # (Auto) 8.89 H (1.40-6.50) K/uL Lymph # (Auto) 0.84 L (1.2-3.4) K/uL [place] # (Auto) 0.85 H (0.11-0.59) K/uL PT 12.2 H (9.0-12.0) Seconds Glucose 167 H (70-99(Fasting)) mg/dl Total Bilirubin 1.1 H (0.2-1.0) mg/dl Ur Specific Spray (1.000-1.030) Urine Protein (Negative) Urine Ketones (Negative) Urine RBC (Auto) (0-4) /hpf U Epithel Cells (Auto) (0-5) /lpf 09/03/22 Range/Units Unknown RBC (4.70-6.10) M/uL Hgb (14.0-18.0) g/dl Hct (42.0-52.0) % RDW Std Deviation (36.4-46.3) fL Neut # (Auto) (1.40-6.50) K/uL Lymph # (Auto) (1.2-3.4) K/uL [place] # (Auto) (0.11-0.59) K/uL PT (9.0-12.0) Seconds Glucose (70-99(Fasting)) mg/dl Total Bilirubin (0.2-1.0) mg/dl Ur Specific Spray 1.037 H (1.000-1.030) Urine Protein 2+ H (Negative) Urine Ketones 2+ H (Negative) Urine RBC (Auto) 5-10 H (0-4) /hpf U Epithel Cells (Auto) 20-30 H (0-5) /lpf Diagnostic Findings XR chest 1V portable HISTORY: 76 years-old Male Abd pain, N/V acute chest and abdominal pain COMPARISON: 05/30/2022 TECHNIQUE: AP view of the chest FINDINGS: Cardiomegaly with prior median sternotomy. Left atrial exclusion device. Unchanged right hemidiaphragmatic elevation. Chronic interstitial coarsening without pneumothorax, large pleural effusion or lobar airspace consolidation. Degenerative changes of the shoulders and spine. IMPRESSION: No acute process. CT OF THE ABDOMEN AND PELVIS WITH CONTRAST CLINICAL HISTORY: Abdominal pain, nausea and vomiting. COMPARISON STUDY: CT of the abdomen and pelvis July 10, 2008. TECHNIQUE: Following IV administration of 94 mL of Optiray, axial images of the abdomen and pelvis were obtained from the lung bases to the proximal femurs. Images were reviewed in the axial, sagittal, and coronal planes. IV contrast was administered without complication. Automated exposure control was utilized for the study. A dose lowering technique was utilized adhering to the principles of ALARA. CT DOSE: 1619.97 mGy.cm FINDINGS: There are trace bilateral pleural effusions. Interlobular septal thickening within the lower lungs is noted. There is moderate cardiomegaly coronary artery calcification. There are median sternotomy wires and postoperative findings from bypass grafting. No pneumatosis, free air or portal venous gas is present. There is no biliary or pancreatic ductal dilatation. There is a suspected 7 mm stone within the gallbladder. There is mild mucosal enhancement of the gallbladder. The gallbladder is not significantly distended however there is moderate pericholecystic fluid/edema. There is also edema within the raven hepatis. A few prominent raven hepatis lymph nodes are noted. These may be reactive. There is a 1.8 cm left renal cyst. No hydronephrosis is present. Spleen, adrenal glands and right kidney are unremarkable. There is no pancreatic ductal dilatation. There is mild stranding adjacent to the pancreatic head. However, the findings do not strongly suggest acute pancreatitis. Right hip arthroplasty is noted. There is extensive colonic diverticulosis without evidence for acute diverticulitis. There is no evidence for a bowel obstruction. Duodenal diverticulum is present. The appendix is normal. There is a fat-containing umbilical hernia. Fat-containing bilateral inguinal hernias, left larger than right. No acute fractures within visualized skeletal structures are present. IMPRESSION: 1. Cholelithiasis with moderate pericholecystic stranding and infiltration. The findings suggest acute cholecystitis however are nonspecific and other etiologies such as right heart dysfunction/volume overload could result in a similar imaging appearance. Further evaluation with right upper quadrant ultrasound is recommended. No biliary ductal dilatation. 2. Evidence for interstitial pulmonary edema within the lower chest. Trace bilateral pleural effusions. Trace perihepatic ascites. 3. Extensive colonic diverticulosis. No evidence for acute diverticulitis. 4. Normal appendix. No bowel obstruction. US gallbladder CLINICAL HISTORY: Possible cholecystitis on CT. COMPARISON STUDY: CT of the abdomen and pelvis performed earlier today. FINDINGS: Liver is sonographically normal. This exam is mildly compromised by suboptimal penetration. The pancreas is obscured. Gallstones and sludge within the gallbladder are present. There is mild gallbladder wall thickening. The wall measures 4 mm in thickness. There is trace pericholecystic fluid. No sonographic Eckert sign was elicited. There is no right hydronephrosis. No biliary ductal dilatation is present IMPRESSION: 1. Gallstones and sludge within the gallbladder with mild gallbladder wall thickening. However, no sonographic Eckert sign. These findings are equivocal for acute cholecystitis. A nuclear medicine hepatobiliary scan could be obtained if indicated. 2. No biliary ductal dilatation. Medications Administered ER Medications Given: NSS 1L bolus Morphine 4mg IV Ondansetron 4mg IV Famotidine 20mg IV ECG Rate (beats per minute): 116 Rhythm: atrial fibrillation Findings: no acute ischemic change Comparison ECG Date: from (May 30, 2022) Change: the following changes noted (Criteria for inferior infarct now present) Code Status & VTE Plan Code Status Full VTE Prophylaxis Plan VTE Prophylaxis will be ordered: No PG Care Time/CCT Total # of Minutes Spent Total Time Spent with Patient: Total time spent is greater than 50% in coordination of care (as documented) at patient's floor/unit and/or counseling patient: Coding Level of Care Code 44099 INT INP/OBS CARE 3/75MIN Diagnoses Acute upper abdominal pain R10.10 Atrial fibrillation I48.91 Ischemic cardiomyopathy I25.5 Chronic systolic (congestive) heart failure I50.22 Type 2 diabetes mellitus E11.9 Sleep apnea G47.30
--- NOTE | 2022-09-03 16:28 | Surgery Consultation ---
Date of Consultation September 03, 2022 Assessment & Plan (1) Acute upper abdominal pain: (2) Gallstones: (3) Nausea and vomiting: Plan 76-year-old male with multiple medical issues presented to the emergency room with mid abdominal pain associated with nausea and vomitingx 3, that started last evening. He does have gallstones on imaging however his ultrasound was equivocal for acute cholecystitis and examination is not consistent with acute cholecystitis at this time. No leukocytosis. No fever. Total bilirubin slightly elevated at 1.1 however LFTs and lipase were within normal limits. Differential diagnosis: Biliary colic, transient biliary obstruction, acute cholecystitis, gastritis, gastric ulcer. Plan: I had a long discussion with patient and his about his imaging findings and his examination. Discussed that his ultrasound was equivocal for acute cholecystitis and his exam is currently not highly suggestive of acute cholecystitis, however would recommend further evaluation of the gallbladder given the elevation of his total bilirubin and his severe pain with a HIDA scan to rule out any cholecystitis versus biliary obstruction not seen on ultrasound. His diabetes could mask some gallbladder inflammation. After above discussion with patient and , patient was questioning about possibly going home from the emergency room and getting an outpatient HIDA scan tomorrow. I recommended admission for observation by the hospitalist team given his severe pain last evening and need for additional work-up. Would recommend the hospitalist team to come evaluate the patient to further discuss with patient. Discussed we would follow along while admitted, get additional imaging study with HIDA scan, hold his eliquis in case of need of surgery, and can have a further discussion of surgical intervention for cholecystectomy once HIDA scan is obtained. Discussed above with Beau Sharp PA-C as well as Dr. Alex France. If patient elects to be admitted, would suggest obtaining HIDA scan without EF tomorrow , clear liquids okay for this evening and then NPO after midnight, and holding Eliquis in case of need of surgery. Discussed above with Dr. Trotter who agrees with above. 09/03/2022 5:55PM DR. Trotter. I saw pt at ER I reviewed pt's H/P , labs and CT scan and U/S study with pt, I agreed with above plan, pt has no abdominal pain now, pt will have HIDA scan, will F/U. pt agreed with the plan, I answered all questions. History of Present Illness Reason for Consultation: mid abdominal pain, nausea, vomiting ? cholecystitis Requesting Physician: Beau Sharp PA-C Attending Physician: Dr. Alex France History of Present Illness Eduardo is a 76-year-old male with a history of A-fib, coronary artery disease status post triple bypass 1 year ago, chronic venous insufficiency, chronic systolic congestive heart failure, hypertension, type 2 diabetes, hypercholesterolemia who presented to the emergency room with complaint of severe mid abdominal pain with associated nausea and vomiting x3 episodes. Pain started last evening and was severe in nature. States the pain was just in the mid abdomen without any radiation straight to his back or around to his right side of his back. Denies of any associated fevers or chills. States he was having episodes of diarrhea after starting spironolactone however he was only taking 1 dose of this and stopped. Denies of any vomiting blood or blood in the stools. Denies of any prior history of gallbladder issues or gallbladder imaging. Was not aware that he had gallstones. History of triple bypass surgery 1 year ago in [facility]. History of hip replacement in June of this year by Dr. Mancia in which she had postoperative hypotension. States he chronically has some fluid overload in his lower extremities and takes Lasix. Takes Eliquis for his atrial fibrillation and last dose was last evening. ER work-up included labs which showed no leukocytosis. Total bilirubin slightly elevated at 1.1 however LFTs and lipase were within normal limits. CT scan of abdomen and pelvis with IV contrast showing some pericholecystic fluid and mild gallbladder wall thickening which could be concerning for acute cholecystitis however is nonspecific as he does have some perihepatic fluid and bilateral lower pleural effusions therefore this could be due to some fluid overload. Ultrasound was obtained which showed some mild wall thickening and mild pericho lecystic fluid however there was a negative Eckert sign and this was equivocal for acute cholecystitis. He currently states that he is not having any abdominal pain but he is having some indigestion and heartburn. Allergies Allergy/AdvReac Type Severity Reaction Status Date / Time spironolactone Allergy Severe Extreme Unverified 09/03/22 09:39 diarrhea pyridostigmine Allergy Mild Vomiting Verified 09/02/22 12:00 Home Medications Medication Instructions Recorded Confirmed Type triamcinolone acetonide 0.1 % 1 applic topical DAILY PRN ud 03/04/22 09/03/22 History topical ointment atorvastatin 40 mg tablet 40 mg PO QDL 04/23/22 09/03/22 History multivitamin 1 tab PO QDL 04/23/22 09/03/22 History pen needle, diabetic 32 gauge x #200 ea 04/29/22 09/02/22 Rx 32" (BD Ultra-Fine [place] Pen Needle) apixaban 5 mg tablet (Eliquis) 5 mg PO BID 05/30/22 09/03/22 History furosemide 20 mg tablet (Lasix) 40 mg PO DAILY 06/13/22 09/03/22 History liraglutide 0.6 mg/0.1 mL (18 mg/3 1.2 mg subcut QDL 06/13/22 09/03/22 History mL) subcutaneous pen injector (Victoza 3-Fady) metoprolol succinate 100 mg 100 mg PO BID #180 tabs 06/13/22 09/03/22 Rx tablet,extended release 24 hr (Toprol XL) sacubitril 49 mg-valsartan 51 mg 1 tab PO BID #180 tabs 08/28/22 09/03/22 Rx tablet (Entresto) insulin glargine U-300 conc 300 20 unit subcut DAILY 09/03/22 09/03/22 History unit/mL (1.5 mL) subcutaneous pen (Toujeo SoloStar U-300 Insulin) Patient History Medical History Atrial fibrillation CAD (coronary artery disease) s/p CABG x3 with IMMANUEL clip (04/2021) Follows with Dr. Hagan Diabetic retinopathy Eye problem Pt c/o ongoing issue with his vision. states he's been worked up for myesthenia gravis & 4th nerve palsy but no official diagnosis GERD (gastroesophageal reflux disease) rare, stable per pt History of blood transfusion 2021 History of rectal abscess > 20 yrs ago Hypertension controlled, stable per pt Ischemic cardiomyopathy EF 30-35% Pulmonary hypertension mild, PASP 45-50 mmHg Sleep apnea CPAP-compliant Type 2 diabetes mellitus IDDM Venous stasis ulcer BLLE (hx) - [place] [facility] in past 2021 Venous stasis ulcers of both lower extremities Surgical History History of cardiac catheterization 02/2021 [place] > CABG History of coronary artery bypass graft x 3 04/22/2021 History of incision and drainage rectal abscess S/P tonsillectomy Family History Father Prostate cancer Myocardial infarction Coronary arteriosclerosis Other Family history non-contributory No family history of adverse response to anesthesia Denies family history of Colon cancer Ovarian cancer Breast cancer Social History Smoking Status: Never smoker Second Hand Exposure: No (as a child); Do You Dip or Chew Tobacco: No; Hx Alcohol Use: Yes Hx Substance Use: No Preferred Language: Bahamian Communication Ability: Effective Visual Impairment: Diminished Hearing Ability: Normal Development Technologist Required: No Beliefs That Will Affect Care: None marital status: Current Living Situation: Spouse current occupational status: retired Feels Safe at Home: Yes Diet: regular caffeine: No during the past year weight has: decreased > 10 lbs Physical Activity Frequency: Does not Exercise Seatbelt Use: always Do you think of yourself as: straight/heterosexual Gender Identity: Male Assistive Devices: Walker Physical Exam Constitutional: WD/WN, vitals as above + obese, cooperative and comfortable; no acute distress, not ill appearing and not diaphoretic Respiratory: normal respiratory effort, lungs clear to auscultation Cardiovascular: Rate/Rhythm: + irregularly irregular Heart Sounds: normal S1 and normal S2; no murmur Gastrointestinal (Abdomen): Inspection/Auscultation: abdomen normal to inspection; abdomen not distended and no abdominal surgical scar Percussion/Palpation: + abdomen tender (Mild tenderness in the upper mid abdomen negative Eckert sign) and abdomen soft; no guarding, abdomen not rigid and abdomen not firm Skin: no rashes, warm and dry no jaundice Psychiatric: Orientation: alert and oriented x 3 Results & Data Vital Signs (Past 12 Hours) Vital Signs Temp Pulse Pulse Resp BP BP Pulse Ox 09/03/22 15:30 114 H 18 158/101 H 99 09/03/22 13:55 101 H 16 144/92 H 100 09/03/22 13:16 105 H 09/03/22 12:00 102 H 16 139/100 95 09/03/22 11:00 108 H 16 167/110 H 98 09/03/22 09:28 09/03/22 09:25 110 H 16 167/113 H 86 L 09/03/22 09:10 115 H 09/03/22 09:00 108 H 16 166/115 H 98 09/03/22 08:50 98 09/03/22 08:29 36.5 C 111 H 20 176/86 H 96 O2 Del Method O2 Flow Rate 09/03/22 15:30 Room Air 09/03/22 13:55 Nasal Cannula 2 09/03/22 13:16 09/03/22 12:00 Room Air 09/03/22 11:00 Room Air 09/03/22 09:28 Nasal Cannula 09/03/22 09:25 Room Air 09/03/22 09:10 09/03/22 09:00 Room Air 09/03/22 08:50 Room Air 09/03/22 08:29 Room Air Laboratory Results 09/03/22 09/03/22 09/03/22 Range/Units Unknown 08:55 08:55 WBC (4.8-10.8) K/ul RBC (4.70-6.10) M/uL Hgb (14.0-18.0) g/dl Hct (42.0-52.0) % MCV (80.0-100.0) fL MCH (25.0-34.0) pg MCHC (32.0-36.0) g/dL RDW Std Deviation (36.4-46.3) fL RDW Coeff of Brat (11.5-14.5) % Plt Count (130-400) K/uL MPV (9.4-12.4) fL Immature Gran % (Auto) % Neut % (Auto) % Lymph % (Auto) % Mckean % (Auto) % Eos % (Auto) % Baso % (Auto) % Neut # (Auto) (1.40-6.50) K/uL Lymph # (Auto) (1.2-3.4) K/uL Mckean # (Auto) (0.11-0.59) K/uL Eos # (Auto) (0-0.50) K/uL Baso # (Auto) (0-0.2) K/uL Immature Gran # (Auto) (0.01-0.20) K/uL PT 12.2 H (9.0-12.0) Seconds INR 1.1 (0.9-1.1) Sodium 140 (136-145) mmol/L Potassium 4.1 (3.5-5.1) mmol/L Chloride 102 (98-107) mmol/L Carbon Dioxide 27 (21-32) mmol/L Anion Gap 11 (3-11) BUN 17 (6-23) mg/dl Creatinine 0.91 (0.6-1.4) mg/dl Est Cr Clr Drug Dosing 86.1 ml/min Est GFR ( Amer) 95.9 ml/min Est GFR (Non-Af Amer) 82.7 ml/min BUN/Creatinine Ratio 18.7 (10-20) Glucose 167 H (70-99(Fasting)) mg/dl Calcium 9.4 (8.6-10.3) mg/dl Total Bilirubin 1.1 H (0.2-1.0) mg/dl AST 23 (13-39) U/L ALT 15 (7-52) U/L Alkaline Phosphatase 87 (34-104) U/L Troponin I High Sens 10.6 (0-20) pg/ml Total Protein 7.0 (6.0-8.3) gm/dl Albumin 4.0 (3.4-5.0) gm/dl Globulin 3.0 (2.5-4.0) gm/dl Albumin/Globulin Ratio 1.3 (0.9-2) Lipase 11 (11-82) U/L Urine Color Yellow Urine Appearance Clear (Clear) Urine pH 6.0 (4.5-7.5) Ur Specific [place] 1.037 H (1.000-1.030) Urine Protein 2+ H (Negative) Urine Glucose (UA) Negative (Negative) Urine Ketones 2+ H (Negative) Urine Blood Negative (Negative) Urine Nitrite Negative (Negative) Urine Bilirubin Negative (Negative) Urine Urobilinogen Negative (Negative) Ur Leukocyte Esterase Negative (Negative) Urine WBC (Auto) 1-5 (0-5) /hpf Urine RBC (Auto) 5-10 H (0-4) /hpf U Hyaline Cast (Auto) 1-5 (0-5) /lpf U Epithel Cells (Auto) 20-30 H (0-5) /lpf Urine Bacteria (Auto) Negative (Negative) 07/26/23 Range/Units 08:55 WBC 10.69 (4.8-10.8) K/ul RBC 3.80 L (4.70-6.10) M/uL Hgb 12.6 L (14.0-18.0) g/dl Hct 37.1 L (42.0-52.0) % MCV 97.6 (80.0-100.0) fL MCH 33.2 (25.0-34.0) pg MCHC 34.0 (32.0-36.0) g/dL RDW Std Deviation 47.7 H (36.4-46.3) fL RDW Coeff of Bart 13.2 (11.5-14.5) % Plt Count 217 (130-400) K/uL MPV 11.2 (9.4-12.4) fL Immature Gran % (Auto) 0.4 % Neut % (Auto) 83.0 % Lymph % (Auto) 7.9 % Mckean % (Auto) 8.0 % Eos % (Auto) 0.4 % Baso % (Auto) 0.3 % Neut # (Auto) 8.89 H (1.40-6.50) K/uL Lymph # (Auto) 0.84 L (1.2-3.4) K/uL Mckean # (Auto) 0.85 H (0.11-0.59) K/uL Eos # (Auto) 0.04 (0-0.50) K/uL Baso # (Auto) 0.03 (0-0.2) K/uL Immature Gran # (Auto) 0.04 (0.01-0.20) K/uL PT (9.0-12.0) Seconds INR (0.9-1.1) Sodium (136-145) mmol/L Potassium (3.5-5.1) mmol/L Chloride (98-107) mmol/L Carbon Dioxide (21-32) mmol/L Anion Gap (3-11) BUN (6-23) mg/dl Creatinine (0.6-1.4) mg/dl Est Cr Clr Drug Dosing ml/min Est GFR ( Amer) ml/min Est GFR (Non-Af Amer) ml/min BUN/Creatinine Ratio (10-20) Glucose (70-99(Fasting)) mg/dl Calcium (8.6-10.3) mg/dl Total Bilirubin (0.2-1.0) mg/dl AST (13-39) U/L ALT (7-52) U/L Alkaline Phosphatase (34-104) U/L Troponin I High Sens (0-20) pg/ml Total Protein (6.0-8.3) gm/dl Albumin (3.4-5.0) gm/dl Globulin (2.5-4.0) gm/dl Albumin/Globulin Ratio (0.9-2) Lipase (11-82) U/L Urine Color Urine Appearance (Clear) Urine pH (4.5-7.5) Ur Specific [place] (1.000-1.030) Urine Protein (Negative) Urine Glucose (UA) (Negative) Urine Ketones (Negative) Urine Blood (Negative) Urine Nitrite (Negative) Urine Bilirubin (Negative) Urine Urobilinogen (Negative) Ur Leukocyte Esterase (Negative) Urine WBC (Auto) (0-5) /hpf Urine RBC (Auto) (0-4) /hpf U Hyaline Cast (Auto) (0-5) /lpf U Epithel Cells (Auto) (0-5) /lpf Urine Bacteria (Auto) (Negative) Diagnostic Findings US gallbladder CLINICAL HISTORY: Possible cholecystitis on CT. COMPARISON STUDY: CT of the abdomen and pelvis performed earlier today. FINDINGS: Liver is sonographically normal. This exam is mildly compromised by suboptimal penetration. The pancreas is obscured. Gallstones and sludge within the gallbladder are present. There is mild gallbladder wall thickening. The wall measures 4 mm in thickness. There is trace pericholecystic fluid. No sonographic Eckert sign was elicited. There is no right hydronephrosis. No biliary ductal dilatation is present IMPRESSION: 1. Gallstones and sludge within the gallbladder with mild gallbladder wall thickening. However, no sonographic Eckert sign. These findings are equivocal for acute cholecystitis. A nuclear medicine hepatobiliary scan could be obtained if indicated. 2. No biliary ductal dilatation. CT OF THE ABDOMEN AND PELVIS WITH CONTRAST CLINICAL HISTORY: Abdominal pain, nausea and vomiting. COMPARISON STUDY: CT of the abdomen and pelvis July 10, 2008. TECHNIQUE: Following IV administration of 94 mL of Optiray, axial images of the abdomen and pelvis were obtained from the lung bases to the proximal femurs. Images were reviewed in the axial, sagittal, and coronal planes. IV contrast was administered without complication. Automated exposure control was utilized for the study. A dose lowering technique was utilized adhering to the principles of ALARA. CT DOSE: 1619.97 mGy.cm FINDINGS: There are trace bilateral pleural effusions. Interlobular septal thickening within the lower lungs is noted. There is moderate cardiomegaly coronary artery calcification. There are median sternotomy wires and postop erative findings from bypass grafting. No pneumatosis, free air or portal venous gas is present. There is no biliary or pancreatic ductal dilatation. There is a suspected 7 mm stone within the gallbladder. There is mild mucosal enhancement of the gallbladder. The gallbladder is not significantly distended however there is moderate pericholecystic fluid/edema. There is also edema within the raven h epatis. A few prominent raven hepatis lymph nodes are noted. These may be reactive. There is a 1.8 cm left renal cyst. No hydronephrosis is present. Spleen, adrenal glands and right kidney are unremarkable. There is no pancreatic ductal dilatation. There is mild stranding adjacent to the pancreatic head. However, the findings do not strongly suggest acute pancreatitis. Right hip arthroplasty is noted. There is extensive colonic diverticulosis without evidence for acute diverticulitis. There is no evidence for a bowel obstruction. Duodenal diverticulum is present. The appendix is normal. There is a fat- containing umbilical hernia. Fat-containing bilateral inguinal hernias, left larger than right. No acute fractures within visualized skeletal structures are present. IMPRESSION: 1. Cholelithiasis with moderate pericholecystic stranding and infiltration. The findings suggest acute cholecystitis however are nonspecific and other etiologies such as right heart dysfunction/volume overload could result in a similar imaging appearance. Further evaluation with right upper quadrant ultrasound is recommended. No biliary ductal dilatation. 2. Evidence for interstitial pulmonary edema within the lower chest. Trace bilateral pleural effusions. Trace perihepatic ascites. 3. Extensive colonic diverticulosis. No evidence for acute diverticulitis. 4. Normal appendix. No bowel obstruction. ACT 112: Negative or not required by law.
[2022-09-03 16:52] LABS: Magnesium 1.8 mg/dl (1.7-2.4)
[2022-09-03 17:00] LABS: Troponin I High Sensitivity 21.6 pg/ml (0-20)
[2022-09-03] MEDS ORDERED: DEXTROSE 50% 50 ML SYRINGE IV PRN (20:02)
[2022-09-03] MEDS ORDERED: CARBOHYDRATES FOR HYPOGLYCEMIA PO PRN (20:02)
[2022-09-03] MEDS ORDERED: GLUCAGON FOR INJ 1 MG VIAL SQ PRN (20:02)
[2022-09-03] MEDS ORDERED: GLUCOSE 40% GEL 15 GM TUBE PO PRN (20:02)
[2022-09-03] MEDS ORDERED: GLUCOSE 10 TAB/TUBE PO PRN (20:02)
[2022-09-03] MEDS: ATORVASTATIN 40 MG TAB PO SCH (23:15)
[2022-09-03] MEDS: METOPROLOL SUCC 50MG EXT REL TAB PO SCH (23:15)
[2022-09-03] MEDS: VALSARTAN/SACUBITRIL 51/49 MG TAB PO SCH (23:15)
[2022-09-03] MEDS: INSULIN ASPART PER UNIT CHARGE SC SCH (23:26)
[2022-09-04 07:42] LABS: Basophils # (auto) 0.05 K/uL (0-0.2); Basophils % (auto) 0.5 %; Eosinophils # (auto) 0.05 K/uL (0-0.50); Eosinophils % (auto) 0.5 %; Hematocrit (blood only) 33.5 % (42.0-52.0); Hemoglobin 11.3 g/dl (14.0-18.0); Immature Granulocytes # (auto) 0.04 K/uL (0.01-0.20); Immature Granulocytes % (auto) 0.4 %; Lymphocytes # (auto) 0.81 K/uL (1.2-3.4); Lymphocytes % (auto) 8.4 %; Mean Corpuscular Hemoglobin 33.1 pg (25.0-34.0); Mean Corpuscular Hgb Conc 33.7 g/dL (32.0-36.0); Mean Corpuscular Volume 98.2 fL (80.0-100.0); Mean Platelet Volume 10.8 fL (9.4-12.4); Monocytes % (auto) 10.4 %; Neutrophils # (auto) 7.66 K/uL (1.40-6.50); Neutrophils % (auto) 79.8 %; Platelet Count 182 K/uL (130-400); RDW Coefficient of Variation 13.5 % (11.5-14.5); RDW Standard Deviation 48.7 fL (36.4-46.3); Red Blood Count 3.41 M/uL (4.70-6.10); White Blood Count 9.61 K/ul (4.8-10.8)
[2022-09-04 07:58] LABS: Albumin Globulin Ratio 1.3 (0.9-2); Albumin Level 3.3 gm/dl (3.4-5.0); BUN Creatinine Ratio 16.7 (10-20); Bilirubin,Total 1.1 mg/dl (0.2-1.0); Calcium 8.7 mg/dl (8.6-10.3); Est GFR (African American) 103.1 ml/min; Est GFR (Non-African American) 88.9 ml/min; Globulin 2.6 gm/dl (2.5-4.0); Potassium 4.1 mmol/L (3.5-5.1); Total Protein 5.9 gm/dl (6.0-8.3)
[2022-09-04] MEDS: METOPROLOL SUCC 50MG EXT REL TAB PO SCH (09:09)
[2022-09-04] MEDS: FUROSEMIDE 40 MG TAB PO SCH (09:09)
[2022-09-04] MEDS: VALSARTAN/SACUBITRIL 51/49 MG TAB PO SCH ×2 (09:09→20:58)
[2022-09-04] MEDS: INSULIN ASPART PER UNIT CHARGE SC SCH ×4 (09:10→21:00)
[2022-09-04] MEDS ORDERED: SINCALIDE 2.1 MCG in 0.9 % SODIUM CHLORIDE 100 ML IV SCH (12:00)
[2022-09-04] MEDS ORDERED: MoRPHine SULFATE 2 MG/ML CARP ONE (12:12)
--- NOTE | 2022-09-04 14:22 | Nuclear Medicine Report ---
NM hepatobiliary EF CLINICAL HISTORY: 76 years-old Male with biliary colic ?acute raen. The right upper quadrant abdomi nal pain TECHNIQUE: Following the intravenous administration of 8.5 mCi of technetium-99m Choletec, sequentia l abdominal images were obtained. COMPARISON: CT 09/03/2022 FINDINGS: There is prompt, uniform accumulation of the tracer by the liver. There is normal filling of the int rahepatic ducts, common bile duct with normal excretion of the tracer into the duodenum. The gallblad jennifer does not fill with tracer on the initial images at 60 minutes. IV morphine was then given to the patient. The gallbladder again is not visualized on the delayed images. IMPRESSION: 1. Findings compatible with cystic duct obstruction/acute cholecystitis. 2. No common bile duct obstruction. ACT 112: Negative or not required by law. The above report was generated using voice recognition software. It may contain grammatical, syntax o r spelling errors. Electronically signed by: Ezra Hong M.D. 09/04/2022 2:21 PM
--- NOTE | 2022-09-04 15:53 | Surgery Progress Note ---
Date of Service September 04, 2022 Assessment & Plan (1) Acute upper abdominal pain: (2) Gallstones: (3) Nausea and vomiting: Plan 76-year-old male with multiple medical issues presented to the emergency room with mid abdominal pain associated with nausea and vomitingx 3, that started last evening. He does have gallstones on imaging however his ultrasound was equivocal for acute cholecystitis and examination is not consistent with acute cholecystitis at this time. No leukocytosis. No fever. Total bilirubin slightly elevated at 1.1 however LFTs and lipase were within normal limits. Differential diagnosis: Biliary colic, transient biliary obstruction, acute cholecystitis, gastritis, gastric ulcer. Plan: I had a long discussion with patient and his about his imaging findings and his examination. Discussed that his ultrasound was equivocal for acute cholecystitis and his exam is currently not highly suggestive of acute cholecystitis, however would recommend further evaluation of the gallbladder given the elevation of his total bilirubin and his severe pain with a HIDA scan to rule out any cholecystitis versus biliary obstruction not seen on ultrasound. His diabetes could mask some gallbladder inflammation. After above discussion with patient and , patient was questioning about possibly going home from the emergency room and getting an outpatient HIDA scan tomorrow. I recommended admission for observation by the hospitalist team given his severe pain last evening and need for additional work-up. Would recommend the hospitalist team to come evaluate the patient to further discuss with patient. Discussed we would follow along while admitted, get additional imaging study with HIDA scan, hold his eliquis in case of need of surgery, and can have a further discussion of surgical intervention for cholecystectomy once HIDA scan is obtained. Discussed above with Beau Sharp PA-C as well as Dr. Alex France. If patient elects to be admitted, would suggest obtaining HIDA scan without EF tomorrow , clear liquids okay for this evening and then NPO after midnight, and holding Eliquis in case of need of surgery. Discussed above with Dr. Trotter who agrees with above. 09/03/2022 5:55PM DR. Trotter. I saw pt at ER I reviewed pt's H/P , labs and CT scan and U/S study with pt, I agreed with above plan, pt has no abdominal pain now, pt will have HIDA scan, will F/U. pt agreed with the plan, I answered all questions. 09/04/2022 3:55PM Dr. Trotter F/U HIDA scan- acute cholecystitis. pt denies abdominal pain, no chest pain. Troponin 21.6. 2-D echo- heart EF 35 %. recommend to consult termite control service representative for pre-op cardiac clearance. NPO after MN. for possible laparoscopic cholecystectomy, pt and his agreed with the plan, I answered all questions. repeat CBC and CMP tomorrow. Admission and Anticipated Discharge Date Admission Date: September 03, 2022 Subjective pt feels better, no abdominal pain now. no nausea, no vomiting, no fever. normal WBC, HIDA scan- acute cholecystitis. Physical Exam Constitutional: WD/WN, vitals as above no distress Eyes: PERRL, conjunctivae normal, anicteric sclerae Neck: trachea midline, no thyromegaly Respiratory: normal respiratory effort, lungs clear to auscultation Cardiovascular: A-fib Gastrointestinal (Abdomen): soft, NT, Nd, BS +. Neurologic: patellar DTR's 2+ bilat, sensation intact Psychiatric: A+Ox3, euthymic affect Results & Data Vital Signs (Past 12 Hours) Vital Signs Temp Pulse Pulse Resp BP Pulse Ox O2 Del Method 09/04/22 13:11 36.7 C 118 H 22 164/108 H 96 Room Air 09/04/22 07:30 99 H 09/04/22 08:05 36.7 C 106 H 22 158/84 H 96 Room Air Laboratory Results Lab Results 09/03/22 09/03/22 09/03/22 Range/Units 08:55 08:55 08:55 WBC 10.69 (4.8-10.8) K/ul RBC 3.80 L (4.70-6.10) M/uL Hgb 12.6 L (14.0-18.0) g/dl Hct 37.1 L (42.0-52.0) % MCV 97.6 (80.0-100.0) fL MCH 33.2 (25.0-34.0) pg MCHC 34.0 (32.0-36.0) g/dL RDW Std Deviation 47.7 H (36.4-46.3) fL RDW Coeff of Bart 13.2 (11.5-14.5) % Plt Count 217 (130-400) K/uL MPV 11.2 (9.4-12.4) fL Immature Gran % (Auto) 0.4 % Neut % (Auto) 83.0 % Lymph % (Auto) 7.9 % Sumner % (Auto) 8.0 % Eos % (Auto) 0.4 % Baso % (Auto) 0.3 % Neut # (Auto) 8.89 H (1.40-6.50) K/uL Lymph # (Auto) 0.84 L (1.2-3.4) K/uL Sumner # (Auto) 0.85 H (0.11-0.59) K/uL Eos # (Auto) 0.04 (0-0.50) K/uL Baso # (Auto) 0.03 (0-0.2) K/uL Immature Gran # (Auto) 0.04 (0.01-0.20) K/uL PT 12.2 H (9.0-12.0) Seconds INR 1.1 (0.9-1.1) Sodium 140 (136-145) mmol/L Potassium 4.1 (3.5-5.1) mmol/L Chloride 102 (98-107) mmol/L Carbon Dioxide 27 (21-32) mmol/L Anion Gap 11 (3-11) BUN 17 (6-23) mg/dl Creatinine 0.91 (0.6-1.4) mg/dl Est Cr Clr Drug Dosing 86.1 ml/min Est GFR ( Amer) 95.9 ml/min Est GFR (Non-Af Amer) 82.7 ml/min BUN/Creatinine Ratio 18.7 (10-20) Glucose 167 H (70-99(Fasting)) mg/dl POC Glucose (70-99) mg/dl Calcium 9.4 (8.6-10.3) mg/dl Magnesium (1.7-2.4) mg/dl Total Bilirubin 1.1 H (0.2-1.0) mg/dl AST 23 (13-39) U/L ALT 15 (7-52) U/L Alkaline Phosphatase 87 (34-104) U/L Troponin I High Sens 10.6 (0-20) pg/ml B-Natriuretic Peptide (0-100) pg/ml Total Protein 7.0 (6.0-8.3) gm/dl Albumin 4.0 (3.4-5.0) gm/dl Globulin 3.0 (2.5-4.0) gm/dl Albumin/Globulin Ratio 1.3 (0.9-2) Lipase 11 (11-82) U/L Urine Color Urine Appearance (Clear) Urine pH (4.5-7.5) Ur Specific Lander (1.000-1.030) Urine Protein (Negative) Urine Glucose (UA) (Negative) Urine Ketones (Negative) Urine Blood (Negative) Urine Nitrite (Negative) Urine Bilirubin (Negative) Urine Urobilinogen (Negative) Ur Leukocyte Esterase (Negative) Urine WBC (Auto) (0-5) /hpf Urine RBC (Auto) (0-4) /hpf U Hyaline Cast (Auto) (0-5) /lpf U Epithel Cells (Auto) (0-5) /lpf Urine Bacteria (Auto) (Negative) 09/03/22 09/03/22 09/03/22 Range/Units 16:09 16:09 20:29 WBC (4.8-10.8) K/ul RBC (4.70-6.10) M/uL Hgb (14.0-18.0) g/dl Hct (42.0-52.0) % MCV (80.0-100.0) fL MCH (25.0-34.0) pg MCHC (32.0-36.0) g/dL RDW Std Deviation (36.4-46.3) fL RDW Coeff of Bart (11.5-14.5) % Plt Count (130-400) K/uL MPV (9.4-12.4) fL Immature Gran % (Auto) % Neut % (Auto) % Lymph % (Auto) % Sumner % (Auto) % Eos % (Auto) % Baso % (Auto) % Neut # (Auto) (1.40-6.50) K/uL Lymph # (Auto) (1.2-3.4) K/uL Sumner # (Auto) (0.11-0.59) K/uL Eos # (Auto) (0-0.50) K/uL Baso # (Auto) (0-0.2) K/uL Immature Gran # (Auto) (0.01-0.20) K/uL PT (9.0-12.0) Seconds INR (0.9-1.1) Sodium (136-145) mmol/L Potassium (3.5-5.1) mmol/L Chloride (98-107) mmol/L Carbon Dioxide (21-32) mmol/L Anion Gap (3-11) BUN (6-23) mg/dl Creatinine (0.6-1.4) mg/dl Est Cr Clr Drug Dosing ml/min Est GFR ( Amer) ml/min Est GFR (Non-Af Amer) ml/min BUN/Creatinine Ratio (10-20) Glucose (70-99(Fasting)) mg/dl POC Glucose 131 H (70-99) mg/dl Calcium (8.6-10.3) mg/dl Magnesium 1.8 (1.7-2.4) mg/dl Total Bilirubin (0.2-1.0) mg/dl AST (13-39) U/L ALT (7-52) U/L Alkaline Phosphatase (34-104) U/L Troponin I High Sens 21.6 H D (0-20) pg/ml B-Natriuretic Peptide 787 H (0-100) pg/ml Total Protein (6.0-8.3) gm/dl Albumin (3.4-5.0) gm/dl Globulin (2.5-4.0) gm/dl Albumin/Globulin Ratio (0.9-2) Lipase (11-82) U/L Urine Color Urine Appearance (Clear) Urine pH (4.5-7.5) Ur Specific Lander (1.000-1.030) Urine Protein (Negative) Urine Glucose (UA) (Negative) Urine Ketones (Negative) Urine Blood (Negative) Urine Nitrite (Negative) Urine Bilirubin (Negative) Urine Urobilinogen (Negative) Ur Leukocyte Esterase (Negative) Urine WBC (Auto) (0-5) /hpf Urine RBC (Auto) (0-4) /hpf U Hyaline Cast (Auto) (0-5) /lpf U Epithel Cells (Auto) (0-5) /lpf Urine Bacteria (Auto) (Negative) 09/03/22 09/03/22 09/04/22 Range/Units 23:14 Unknown 05:43 WBC (4.8-10.8) K/ul RBC (4.70-6.10) M/uL Hgb (14.0-18.0) g/dl Hct (42.0-52.0) % MCV (80.0-100.0) fL MCH (25.0-34.0) pg MCHC (32.0-36.0) g/dL RDW Std Deviation (36.4-46.3) fL RDW Coeff of Bart (11.5-14.5) % Plt Count (130-400) K/uL MPV (9.4-12.4) fL Immature Gran % (Auto) % Neut % (Auto) % Lymph % (Auto) % Sumner % (Auto) % Eos % (Auto) % Baso % (Auto) % Neut # (Auto) (1.40-6.50) K/uL Lymph # (Auto) (1.2-3.4) K/uL Sumner # (Auto) (0.11-0.59) K/uL Eos # (Auto) (0-0.50) K/uL Baso # (Auto) (0-0.2) K/uL Immature Gran # (Auto) (0.01-0.20) K/uL PT (9.0-12.0) Seconds INR (0.9-1.1) Sodium (136-145) mmol/L Potassium (3.5-5.1) mmol/L Chloride (98-107) mmol/L Carbon Dioxide (21-32) mmol/L Anion Gap (3-11) BUN (6-23) mg/dl Creatinine (0.6-1.4) mg/dl Est Cr Clr Drug Dosing ml/min Est GFR ( Amer) ml/min Est GFR (Non-Af Amer) ml/min BUN/Creatinine Ratio (10-20) Glucose (70-99(Fasting)) mg/dl POC Glucose 120 H 93 (70-99) mg/dl Calcium (8.6-10.3) mg/dl Magnesium (1.7-2.4) mg/dl Total Bilirubin (0.2-1.0) mg/dl AST (13-39) U/L ALT (7-52) U/L Alkaline Phosphatase (34-104) U/L Troponin I High Sens (0-20) pg/ml B-Natriuretic Peptide (0-100) pg/ml Total Protein (6.0-8.3) gm/dl Albumin (3.4-5.0) gm/dl Globulin (2.5-4.0) gm/dl Albumin/Globulin Ratio (0.9-2) Lipase (11-82) U/L Urine Color Yellow Urine Appearance Clear (Clear) Urine pH 6.0 (4.5-7.5) Ur Specific Lander 1.037 H (1.000-1.030) Urine Protein 2+ H (Negative) Urine Glucose (UA) Negative (Negative) Urine Ketones 2+ H (Negative) Urine Blood Negative (Negative) Urine Nitrite Negative (Negative) Urine Bilirubin Negative (Negative) Urine Urobilinogen Negative (Negative) Ur Leukocyte Esterase Negative (Negative) Urine WBC (Auto) 1-5 (0-5) /hpf Urine RBC (Auto) 5-10 H (0-4) /hpf U Hyaline Cast (Auto) 1-5 (0-5) /lpf U Epithel Cells (Auto) 20-30 H (0-5) /lpf Urine Bacteria (Auto) Negative (Negative) 09/04/22 09/04/22 09/04/22 Range/Units 07:11 07:11 13:06 WBC 9.61 (4.8-10.8) K/ul RBC 3.41 L (4.70-6.10) M/uL Hgb 11.3 L (14.0-18.0) g/dl Hct 33.5 L (42.0-52.0) % MCV 98.2 (80.0-100.0) fL MCH 33.1 (25.0-34.0) pg MCHC 33.7 (32.0-36.0) g/dL RDW Std Deviation 48.7 H (36.4-46.3) fL RDW Coeff of Bart 13.5 (11.5-14.5) % Plt Count 182 (130-400) K/uL MPV 10.8 (9.4-12.4) fL Immature Gran % (Auto) 0.4 % Neut % (Auto) 79.8 % Lymph % (Auto) 8.4 % Sumner % (Auto) 10.4 % Eos % (Auto) 0.5 % Baso % (Auto) 0.5 % Neut # (Auto) 7.66 H (1.40-6.50) K/uL Lymph # (Auto) 0.81 L (1.2-3.4) K/uL Sumner # (Auto) 1.00 H (0.11-0.59) K/uL Eos # (Auto) 0.05 (0-0.50) K/uL Baso # (Auto) 0.05 (0-0.2) K/uL Immature Gran # (Auto) 0.04 (0.01-0.20) K/uL PT (9.0-12.0) Seconds INR (0.9-1.1) Sodium 138 (136-145) mmol/L Potassium 4.1 (3.5-5.1) mmol/L Chloride 105 (98-107) mmol/L Carbon Dioxide 29 (21-32) mmol/L Anion Gap 4 (3-11) BUN 13 (6-23) mg/dl Creatinine 0.78 (0.6-1.4) mg/dl Est Cr Clr Drug Dosing 101.0 ml/min Est GFR ( Amer) 103.1 ml/min Est GFR (Non-Af Amer) 88.9 ml/min BUN/Creatinine Ratio 16.7 (10-20) Glucose 98 (70-99(Fasting)) mg/dl POC Glucose 99 (70-99) mg/dl Calcium 8.7 (8.6-10.3) mg/dl Magnesium (1.7-2.4) mg/dl Total Bilirubin 1.1 H (0.2-1.0) mg/dl AST 19 (13-39) U/L ALT 12 (7-52) U/L Alkaline Phosphatase 64 (34-104) U/L Troponin I High Sens (0-20) pg/ml B-Natriuretic Peptide (0-100) pg/ml Total Protein 5.9 L (6.0-8.3) gm/dl Albumin 3.3 L (3.4-5.0) gm/dl Globulin 2.6 (2.5-4.0) gm/dl Albumin/Globulin Ratio 1.3 (0.9-2) Lipase (11-82) U/L Urine Color Urine Appearance (Clear) Urine pH (4.5-7.5) Ur Specific Lander (1.000-1.030) Urine Protein (Negative) Urine Glucose (UA) (Negative) Urine Ketones (Negative) Urine Blood (Negative) Urine Nitrite (Negative) Urine Bilirubin (Negative) Urine Urobilinogen (Negative) Ur Leukocyte Esterase (Negative) Urine WBC (Auto) (0-5) /hpf Urine RBC (Auto) (0-4) /hpf U Hyaline Cast (Auto) (0-5) /lpf U Epithel Cells (Auto) (0-5) /lpf Urine Bacteria (Auto) (Negative) Diagnostic Findings NM hepatobiliary EF CLINICAL HISTORY: 76 years-old Male with biliary colic ?acute aren. The right upper quadrant abdominal pain TECHNIQUE: Following the intravenous administration of 8.5 mCi of technetium- 99m Choletec, sequential abdominal images were obtained. COMPARISON: CT 09/03/2022 FINDINGS: There is prompt, uniform accumulation of the tracer by the liver. There is normal filling of the intrahepatic ducts, common bile duct with normal excretion of the tracer into the duodenum. The gallbladder does not fill with tracer on the initial images at 60 minutes. IV morphine was then given to the patient. The gallbladder again is not visualized on the delayed images. IMPRESSION: 1. Findings compatible with cystic duct obstruction/acute cholecystitis. 2. No common bile duct obstruction. ACT 112: Negative or not required by law. The above report was generated using voice recognition software. It may contain grammatical, syntax or spelling errors.
--- NOTE | 2022-09-04 17:09 | Cardiology Consultation ---
Date of Consultation September 04, 2022 Assessment & Plan (1) Permanent atrial fibrillation with rapid ventricular response: Patient with permanent atrial fibrillation who has no cardiac symptoms but who currently has a mildly tachycardic ventricular response, likely due to increased adrenergic milieu of acute cholecystitis. His usual negative chronotropic regimen is metoprolol succinate 100 mg twice daily, to minimize the risk of postoperative hypotension (which occurred after his recent hip surgery) and to better control his rapid ventricular rate (which also occurred after hip surgery) would switch to shorter acting metoprolol at more frequent intervals supplemented by IV metoprolol as needed. Could change metoprolol succinate to metoprolol tartrate 50 mg p.o. every 6 hours, supplemented by metoprolol tartrate 5 mg IV every 2 hours as needed heart rate greater than 120 bpm (hold for SBP less than 80 mmHg). Depending on his dietary status post operatively, if he is unable to take oral meds could use metoprolol to tartrate 2 mg IV routinely every 2 hours with hold orders for heart rate less than 90 bpm or SBP less than 80 mmHg. (2) Anticoagulant long-term use: He is chronically on apixaban but he has not taken this for several days. Given elevated [id number] score would resume apixaban 5 mg twice daily postoperatively. (3) CAD (coronary artery disease): Significant CAD but revascularized with CABG last year. In this context, minor asymptomatic troponin elevation is not clinically significant. Optimize hemodynamics perioperatively by controlling ventricular rate and avoiding blood pressure extremes. (4) Status post coronary artery bypass graft: (5) Ischemic cardiomyopathy: Volume status appropriate currently. Will need to monitor this closely and administer diuretics based on fluid input/output perioperatively. Would hold Entresto the morning of surgery to reduce risk of postoperative hypotension. (6) Gallstones: Operative removal planned for tomorrow. Patient is acceptable risk to proceed with surgery, no evidence of ongoing myocardial ischemia or congestive heart failure, his minor rhythm issues can be controlled with oral/IV beta-blockers. Will continue to follow along. History of Present Illness Reason for Consultation: pre-op cardiac clearance Requesting Physician: Gabino Alonzo DO Attending Physician: Gabino Alonzo DO History of Present Illness 76-year-old man with permanent atrial fibrillation (apixaban/metoprolol), CAD (CABG 2021 with STOCK to LAD, SVG to ramus, OM), ischemic cardiomyopathy (EF 35- 40% August 2022), moderate mitral regurgitation, chronic venous insufficiency, who was admitted with abdominal pain and found to have gallbladder disease for which laparoscopic cholecystectomy is planned for tomorrow. He had undergone a right total hip replacement May 2022, postoperatively had asymptomatic hypotension and atrial fibrillation with rapid ventricular response treated with fluids and holding vasoactive medications. He denies any recent cardiac symptoms, noting no chest pain, dyspnea on exertion, palpitations, orthostatic lightheadedness, presyncope, or syncope. He has chronic lower extremity edema, he has had more significant right leg edema since his hip replacement surgery. At the time of my evaluation this afternoon, he was comfortable and had no somatic complaints. Allergies Allergy/AdvReac Type Severity Reaction Status Date / Time spironolactone Allergy Severe Extreme Unverified 09/03/22 09:39 diarrhea pyridostigmine Allergy Mild Vomiting Verified 09/02/22 12:00 Home Medications Medication Instructions Recorded Confirmed Type triamcinolone acetonide 0.1 % 1 applic topical DAILY PRN ud 03/04/22 09/03/22 History topical ointment atorvastatin 40 mg tablet 40 mg PO QDL 04/23/22 09/03/22 History multivitamin 1 tab PO QDL 04/23/22 09/03/22 History pen needle, diabetic 32 gauge x #200 ea 04/29/22 09/02/22 Rx 5/32" (BD Ultra-Fine [place] Pen Needle) apixaban 5 mg tablet (Eliquis) 5 mg PO BID 05/30/22 09/03/22 History furosemide 20 mg tablet (Lasix) 40 mg PO DAILY 06/13/22 09/03/22 History liraglutide 0.6 mg/0.1 mL (18 mg/3 1.2 mg subcut QDL 06/13/22 09/03/22 History mL) subcutaneous pen injector ([employer] 3-Fady) metoprolol succinate 100 mg 100 mg PO BID #180 tabs 06/13/22 09/03/22 Rx tablet,extended release 24 hr (Toprol XL) sacubitril 49 mg-valsartan 51 mg 1 tab PO BID #180 tabs 08/28/22 09/03/22 Rx tablet (Entresto) insulin glargine U-300 conc 300 20 unit subcut DAILY 09/03/22 09/03/22 History unit/mL (1.5 mL) subcutaneous pen ([employer] SoloStar U-300 Insulin) Patient History Medical History (Updated 09/04/22 @ 17:11 by Kevon Graves MD) Asthmatic bronchitis CAD (coronary artery disease) s/p CABG x3 with IMMANUEL clip (04/2021) Follows with Dr. Hagan Diabetic retinopathy Eye problem Pt c/o ongoing issue with his vision. states he's been worked up for myesthenia gravis & 4th nerve palsy but no official diagnosis GERD (gastroesophageal reflux disease) rare, stable per pt History of blood transfusion 2021 History of rectal abscess > 20 yrs ago Hypertension controlled, stable per pt Ischemic cardiomyopathy EF 30-35% Nephrolithiasis Pulmonary hypertension mild, PASP 45-50 mmHg Sleep apnea CPAP-compliant Type 2 diabetes mellitus IDDM Venous stasis ulcer BLLE (hx) - [place] [facility] in past 2021 Venous stasis ulcers of both lower extremities Surgical History History of cardiac catheterization 02/2021 [place] > CABG History of coronary artery bypass graft x 3 04/22/2021 History of incision and drainage rectal abscess S/P tonsillectomy Family History Father Prostate cancer Myocardial infarction Coronary arteriosclerosis Other Family history non-contributory No family history of adverse response to anesthesia Denies family history of Colon cancer Ovarian cancer Breast cancer Social History Smoking Status: Never smoker Second Hand Exposure: No (as a child); Do You Dip or Chew Tobacco: No; Hx Alcohol Use: No Hx Substance Use: No Preferred Language: Greenlandic Communication Ability: Effective Visual Impairment: Diminished Hearing Ability: Normal Medical Aide Required: No Beliefs That Will Affect Care: None marital status: Current Living Situation: Spouse current occupational status: retired Other Information That Helps Us Care for You: No Feels Safe at Home: Yes Safety Concerns: Feels Safe At This Time Diet: regular caffeine: No during the past year weight has: decreased > 10 lbs Physical Activity Frequency: Does not Exercise Seatbelt Use: always Do you think of yourself as: straight/heterosexual Gender Identity: Male Assistive Devices: CPAP and Walker Physical Exam Physical Exam: Adult white male in no distress. BP mildly hypertensive (164/108 mmHg). Pulse 118 bpm and irregular Skin: no ecchymoses or generalized lesions. Chronic stasis pigmentary changes with bilateral erythema both lower extremities, healing eschar anterior sagittal plane right knee and upper hernandez. HEENT: unremarkable. Neck: JVP mildly elevated, no carotid bruits. Lungs: clear bilaterally. Cardiac: Irregular/tachycardic rhythm, intact S1 and S2, musical 3/6 systolic murmur heard intermittently at the apex, no diastolic murmur. Abdomen: Nondistended. Extremities: 3+ right, 2+ left lower extremity edema with skin changes as noted above. Neurologic: normal affect and conversation, nonfocal. Results & Data Vital Signs (Past 12 Hours) Vital Signs Temp Pulse Pulse Resp BP Pulse Ox O2 Del Method 09/04/22 13:11 98.1 F 118 H 22 164/108 H 96 Room Air 09/04/22 07:30 99 H 09/04/22 08:05 98.1 F 106 H 22 158/84 H 96 Room Air Laboratory Results Troponin 10.6 and 21.6. BNP 787 (previous range 478708). Normal electrolytes, BUN 13, creatinine 0.78. Hemoglobin 11.3. Diagnostic Findings ECG showed atrial fibrillation with ventricular response 116 bpm, old inferior infarct, old anteroseptal infarct. Compared with 05/30/2022 ECG, criteria for inferior infarct now present, otherwise no significant change. Chest x-ray showed no acute process. Gallbladder ultrasound showed gallstones and sludge, hepatobiliary scan showed cystic duct obstruction/acute cholecystitis. Echocardiogram 08/20/2022 showed EF 35 to 40% with mild global LV dysfunction and severe hypokinetic septum, mild to moderate mitral regurgitation, moderate pulmonary hypertension, severely dilated left atrium. Compared with 2021 study, LV function mildly improved. PG Care Time/CCT Total # of Minutes Spent Total Time Spent with Patient: Total time spent is greater than 50% in coordination of care (as documented) at patient's floor/unit and/or counseling patient: Coding Level of Care Code 73374 INT INP/OBS CARE 3/75MIN Diagnoses Permanent atrial fibrillation with rapid ventricular response I48.21 Anticoagulant long-term use Z79.01 CAD (coronary artery disease) I25.10 Status post coronary artery bypass graft Z95.1 Ischemic cardiomyopathy I25.5 Gallstones K80.20
[2022-09-04] MEDS: ATORVASTATIN 40 MG TAB PO SCH (17:26)
[2022-09-04] MEDS: LACTATED RINGER'S 1,000 ML IV SCH (17:27)
[2022-09-04] MEDS: cefOXitin 2,000 MG in DEXTROSE 5% 50 ML IV SCH ×2 (17:40→23:36)
--- NOTE | 2022-09-04 20:29 | Communication Note ---
Date of Service: September 04, 2022 I was notified at 20:15 that the patient was in RVR with rapid ventricular response with rates into the 140s to 150s. Per review of cardiology's consultation from today, they recommended switching his metoprolol succinate twice daily to metoprolol tartrate every 6 hours scheduled with IV Lopressor 5 mg every 2 hours as needed for rates greater than 120. Change these orders per their recommendation. We will recheck his rates in 2 hours after administration of oral Lopressor and if they are still greater than 120 will administer a 5 mg IV dose. Patient is currently asymptomatic. For further details please see cardiology note.
[2022-09-04] MEDS: METOPROLOL TARTRATE 50 MG TAB PO SCH (20:58)
[2022-09-04] MEDS ORDERED: METOPROLOL TARTRATE 1 MG/ML VIAL IV PRN (22:23)
[2022-09-05] MEDS: METOPROLOL TARTRATE 50 MG TAB PO SCH ×4 (02:30→21:12)
[2022-09-05] MEDS: LACTATED RINGER'S 1,000 ML IV SCH ×2 (04:56→18:09)
[2022-09-05] MEDS: cefOXitin 2,000 MG in DEXTROSE 5% 50 ML IV SCH ×2 (04:56→10:20)
[2022-09-05] MEDS: FUROSEMIDE 40 MG TAB PO SCH (07:31)
[2022-09-05] MEDS: VALSARTAN/SACUBITRIL 51/49 MG TAB PO SCH ×2 (07:31→21:12)
[2022-09-05] MEDS: INSULIN ASPART PER UNIT CHARGE SC SCH ×4 (07:32→21:16)
[2022-09-05 07:48] LABS: Albumin Globulin Ratio 1.1 (0.9-2); BUN Creatinine Ratio 17.2 (10-20); Bilirubin,Total 1.5 mg/dl (0.2-1.0); Calcium 8.5 mg/dl (8.6-10.3); Creatinine Clr Calc Pharmacy 84.7 ml/min; Est GFR (African American) 93.4 ml/min; Est GFR (Non-African American) 80.6 ml/min; Globulin 2.7 gm/dl (2.5-4.0); Potassium 3.7 mmol/L (3.5-5.1); Total Protein 5.7 gm/dl (6.0-8.3)
[2022-09-05] MEDS ORDERED: ROCURONIUM BROMIDE 10 MG/ML 5 ML VIAL IV ONE (08:53)
[2022-09-05 09:34] LABS: Basophils # (auto) 0.03 K/uL (0-0.2); Basophils % (auto) 0.2 %; Eosinophils # (auto) 0.01 K/uL (0-0.50); Eosinophils % (auto) 0.1 %; Hematocrit (blood only) 34.2 % (42.0-52.0); Hemoglobin 11.7 g/dl (14.0-18.0); Immature Granulocytes # (auto) 0.12 K/uL (0.01-0.20); Immature Granulocytes % (auto) 0.8 %; Lymphocytes # (auto) 0.85 K/uL (1.2-3.4); Lymphocytes % (auto) 5.3 %; Mean Corpuscular Hemoglobin 32.7 pg (25.0-34.0); Mean Corpuscular Hgb Conc 34.2 g/dL (32.0-36.0); Mean Corpuscular Volume 95.5 fL (80.0-100.0); Mean Platelet Volume 11.3 fL (9.4-12.4); Monocytes # (auto) 1.76 K/uL (0.11-0.59); Neutrophils # (auto) 13.22 K/uL (1.40-6.50); Neutrophils % (auto) 82.6 %; Platelet Count 196 K/uL (130-400); RDW Coefficient of Variation 13.3 % (11.5-14.5); RDW Standard Deviation 47.1 fL (36.4-46.3); Red Blood Count 3.58 M/uL (4.70-6.10); White Blood Count 15.99 K/ul (4.8-10.8)
--- NOTE | 2022-09-05 10:59 | Cardiology Progress Note ---
Date of Service September 05, 2022 Assessment & Plan (1) Permanent atrial fibrillation with rapid ventricular response: Plan: Metoprolol changed from long-acting to short acting preparation to allow for better [id number] management of perioperative blood pressure and heart rate and thereby minimize the risk of postoperative hypotension (which occurred after his recent hip surgery) and to better control his rapid ventricular rate (which also occurred after hip surgery). Since cholecystectomy should be a less hemodynamically demanding surgery, likely he could be switched back to his usual metoprolol succinate dosing the day after surgery. Depending on his dietary status post operatively, if he is unable to take oral meds could use metoprolol to tartrate 2 mg IV routinely every 2 hours with hold orders for heart rate less than 90 bpm or SBP less than 80 mmHg. (2) Anticoagulant long-term use: Plan: He is chronically on apixaban but he has not taken this for several days. Given elevated [id number] score would resume apixaban 5 mg twice daily postoperatively. (3) CAD (coronary artery disease): Plan: Significant CAD but revascularized with CABG last year. In this context, minor asymptomatic troponin elevation is not clinically significant. Optimize hemodynamics perioperatively by controlling ventricular rate and avoiding blood pressure extremes. (4) Status post coronary artery bypass graft: (5) Ischemic cardiomyopathy: Plan: Volume status appropriate currently. Will need to monitor this closely and administer diuretics based on fluid input/output perioperatively. Would hold Entresto the morning of surgery to reduce risk of postoperative hypotension. (6) Gallstones: Plan: Operative removal planned for later today. Patient is acceptable risk to proceed with surgery, no evidence of ongoing myocardial ischemia or congestive heart failure, his minor rhythm issues can be controlled with oral/IV beta-blockers. Will continue to follow along. Admission and Anticipated Discharge Date Admission Date: September 05, 2022 Subjective No complaints. Denies chest pain, dyspnea, subjective palpitations, or lightheadedness. Telemetry shows atrial fibrillation with ventricular rate 100-110 bpm. Physical Exam Physical Exam: No distress. BP normotensive. Pulse 108 bpm and irregular Skin: no ecchymoses or generalized lesions. Chronic stasis pigmentary changes with bilateral erythema both lower extremities, healing eschar anterior sagittal plane right knee and upper hernandez. HEENT: unremarkable. Neck: JVP mildly elevated, no carotid bruits. Lungs: clear bilaterally. Cardiac: Irregular/tachycardic rhythm, intact S1 and S2, musical 3/6 systolic murmur heard intermittently at the apex, no diastolic murmur. Abdomen: Nondistended. Extremities: 3+ right, 2+ left lower extremity edema with skin changes as noted above. Neurologic: normal affect and conversation, nonfocal. Results & Data Laboratory Results Normal electrolytes, BUN 16, creatinine 0.93. PG Care Time/CCT Total # of Minutes Spent Total Time Spent with Patient: Total time spent is greater than 50% in coordination of care (as documented) at patient's floor/unit and/or counseling patient: Coding Level of Care Code 46871 SUB INP/OBS CARE 2/35MIN Diagnoses Permanent atrial fibrillation with rapid ventricular response I48.21 Anticoagulant long-term use Z79.01 CAD (coronary artery disease) I25.10 Status post coronary artery bypass graft Z95.1 Ischemic cardiomyopathy I25.5 Gallstones K80.20
--- NOTE | 2022-09-05 11:54 | History & Physical Bridge Note ---
Date of Service September 05, 2022 History & Physical Bridge Note I have examined the patient, reviewed the History & Physical and in the interval since the performance of the History & Physical I have noted the following changes of clinical significance: no changes noted
[2022-09-05] MEDS ORDERED: ONDANSETRON INJ 2 MG/ML 2 ML VIAL ONE (12:00)
[2022-09-05] MEDS ORDERED: fentaNYL citrate PF 100 MCG/2 ML VIAL ONE ×2 (12:00→13:52)
[2022-09-05] MEDS ORDERED: LIDOCAINE 2% 2 ML VIAL/AMP(20MG/ML) INFIL ONE (12:00)
[2022-09-05] MEDS ORDERED: PROPOFOL IV EMULSION 10 MG/ML 20 ML VIAL IV ONE (12:00)
--- NOTE | 2022-09-05 12:22 | Anesthesiology Consultation ---
Date of Service September 05, 2022 Assessment & Plan Chart Review Chart Review: Acceptable Risk for Surgery and Patient NOT seen in Pre Admission Testing History Surgery Operation Date: 09/05/22 08:10 Proposed Procedures p Laparoscopic Cholecystectomy - Aly Trotter MD Height/Weight Height: 5 ft 10 in Weight: 97.097 kg Allergies Allergy/AdvReac Type Severity Reaction Status Date / Time spironolactone Allergy Severe Extreme Unverified 09/03/22 09:39 diarrhea pyridostigmine Allergy Mild Vomiting Verified 09/02/22 12:00 Medications Home Medications Medication Instructions Recorded Confirmed Last Taken triamcinolone acetonide 0.1 % 1 applic topical DAILY PRN ud 03/04/22 09/03/22 Unknown topical ointment atorvastatin 40 mg tablet 40 mg PO QDL 04/23/22 09/03/22 09/02/22 multivitamin 1 tab PO QDL 04/23/22 09/03/22 09/02/22 pen needle, diabetic 32 gauge x #200 ea 04/29/22 09/02/22 Unknown " (BD Ultra-Fine [place] Pen Needle) apixaban 5 mg tablet (Eliquis) 5 mg PO BID 05/30/22 09/03/22 09/02/22 furosemide 20 mg tablet (Lasix) 40 mg PO DAILY 06/13/22 09/03/22 09/02/22 liraglutide 0.6 mg/0.1 mL (18 mg/3 1.2 mg subcut QDL 06/13/22 09/03/22 09/02/22 mL) subcutaneous pen injector (Folkstr 3-Fady) metoprolol succinate 100 mg 100 mg PO BID #180 tabs 06/13/22 09/03/22 09/02/22 tablet,extended release 24 hr (Toprol XL) sacubitril 49 mg-valsartan 51 mg 1 tab PO BID #180 tabs 08/28/22 09/03/22 09/02/22 tablet (Entresto) insulin glargine U-300 conc 300 20 unit subcut DAILY 09/03/22 09/03/22 09/02/22 unit/mL (1.5 mL) subcutaneous pen (Touitzato SoloStar U-300 Insulin) Active Medications Generic Name Dose Route Start Last Admin Trade Name Freq PRN Reason Stop Dose Admin Atorvastatin Calcium 40 mg 09/03/22 20:02 09/04/22 17:26 Atorvastatin 40 Mg Tab PO 10/03/22 20:01 40 mg QDL ROSE Administration Furosemide 40 mg 09/04/22 09:00 09/05/22 07:31 Furosemide 40 Mg Tab PO 10/04/22 08:59 40 mg DAILY ROSE Administration Cefoxitin Sodium 2,000 mg/ 60 mls @ 100 mls/hr 09/04/22 17:00 09/05/22 10:20 Dextrose IV 09/14/22 16:59 100 mls/hr Q6H ROSE Administration Protocol Lactated Ringer's 1,000 mls @ 80 mls/hr 09/04/22 16:45 09/05/22 06:17 Lr IV 10/04/22 16:44 80 mls/hr .[id number] ROSE Infusion Insulin Aspart 0 units 09/03/22 21:00 09/05/22 07:32 Insulin Aspart Per Unit Charge SC 10/03/22 20:59 Not Given ACHS ROSE Metoprolol Succinate 100 mg 09/03/22 21:00 09/04/22 09:09 Metoprolol Succ 50mg Ext Rel Tab PO 10/03/22 20:59 100 mg BID ROSE Administration Metoprolol Tartrate 50 mg 09/04/22 20:30 09/05/22 07:31 Metoprolol Tartrate 50 Mg Tab PO 10/04/22 20:29 50 mg Q6H ROSE Administration Sacubitril/Valsartan 1 tab 09/03/22 21:00 09/05/22 07:31 Valsartan/Sacubitril 51/49 Mg Tab PO 10/03/22 20:59 1 tab BID ROSE Administration NPO Date Last Intake of Fluids: 09/04/22 Time Last Intake of Fluids: 11:00 Date Last Intake of Solids: 09/04/22 Time Last Intake of Solids: 11:00 Past Medical History Medical History Asthmatic bronchitis CAD (coronary artery disease) s/p CABG x3 with IMMANUEL clip (04/2021) Follows with Dr. Hagan Diabetic retinopathy Eye problem Pt c/o ongoing issue with his vision. states he's been worked up for myesthenia gravis & 4th nerve palsy but no official diagnosis GERD (gastroesophageal reflux disease) rare, stable per pt History of blood transfusion 2021 History of rectal abscess > 20 yrs ago Hypertension controlled, stable per pt Ischemic cardiomyopathy EF 30-35% Nephrolithiasis Pulmonary hypertension mild, PASP 45-50 mmHg Sleep apnea CPAP-compliant Type 2 diabetes mellitus IDDM Venous stasis ulcer BLLE (hx) - [place] [facility] in past 2021 Venous stasis ulcers of both lower extremities Past Family History Family History Father Prostate cancer Myocardial infarction Coronary arteriosclerosis Other Family history non-contributory No family history of adverse response to anesthesia Denies family history of Colon cancer Ovarian cancer Breast cancer Past Surgical History Surgical History History of cardiac catheterization 02/2021 [place] > CABG History of coronary artery bypass graft x 3 04/22/2021 History of incision and drainage rectal abscess S/P tonsillectomy Social History Smoking Status: Never smoker Do You Dip or Chew Tobacco: No Hx Alcohol Use: No alcohol intake frequency: holidays/special occasions only Hx Substance Use: No substance use type: does not use Physical Exam Vital Signs Last Vital Signs Temp 37.1 C 09/05/22 11:49 Pulse 105 H 09/05/22 11:49 Resp 18 09/05/22 11:49 BP 150/92 H 09/05/22 11:49 Pulse Ox 95 09/05/22 11:49 O2 Del Method Room Air 09/05/22 11:49 O2 Flow Rate 5 09/04/22 23:57 Testing Laboratory Results 09/05/22 06:51 09/05/22 06:51 PT 12.2 Seconds (9.0-12.0) H 09/03/22 08:55 INR 1.1 (0.9-1.1) 09/03/22 08:55 Urine Color Yellow 09/03/22 Unknown Urine Appearance Clear (Clear) 09/03/22 Unknown Urine pH 6.0 (4.5-7.5) 09/03/22 Unknown Ur Specific Meta 1.037 (1.000-1.030) H 09/03/22 Unknown Urine Protein 2+ (Negative) H 09/03/22 Unknown Urine Glucose (UA) Negative (Negative) 09/03/22 Unknown Urine Ketones 2+ (Negative) H 09/03/22 Unknown Urine Nitrite Negative (Negative) 09/03/22 Unknown Ur Leukocyte Esterase Negative (Negative) 09/03/22 Unknown Urine WBC (Auto) 1-5 /hpf (0-5) 09/03/22 Unknown Urine RBC (Auto) 5-10 /hpf (0-4) H 09/03/22 Unknown U Hyaline Cast (Auto) 1-5 /lpf (0-5) 09/03/22 Unknown U Epithel Cells (Auto) 20-30 /lpf (0-5) H 09/03/22 Unknown Urine Bacteria (Auto) Negative (Negative) 09/03/22 Unknown 09/03/22 16:09 Aerobic Blood Culture - Preliminary Blood No growth in Aerobic bottle after 24 hours. Anaerobic Blood Culture - Preliminary No growth in Anaerobic bottle after 24 hours. 09/03/22 16:10 Aerobic Blood Culture - Preliminary Blood No growth in Aerobic bottle after 24 hours. Anaerobic Blood Culture - Preliminary No growth in Anaerobic bottle after 24 hours. 09/05/22 09/05/22 11:30 06:41 POC Glucose 139 H 116 H
[2022-09-05] MEDS ORDERED: ONDANSETRON INJ 2 MG/ML 2 ML VIAL IV PRN ×2 (12:36→15:24)
[2022-09-05] MEDS ORDERED: ePHEDrine sulfate 50 MG/ML AMP IV PRN (12:36)
[2022-09-05] MEDS ORDERED: HYDROmorphone INJ 2 MG/ML SYR/VIAL IV PRN (12:36)
[2022-09-05] MEDS ORDERED: ATROPINE SULFATE 0.1 MG/ML 10ML SYR IV PRN (12:36)
[2022-09-05] MEDS ORDERED: fentaNYL citrate PF 100 MCG/2 ML VIAL IV PRN (12:36)
[2022-09-05] MEDS ORDERED: BACITRACIN OINT 14 GM TUBE ONE (13:20)
[2022-09-05] MEDS ORDERED: BUPIVACAINE 0.5 % 5 MG/1 ML MPF 30ML VIAL ONE (13:20)
[2022-09-05] MEDS ORDERED: LIDOCAINE 1% LOCAL 20 ML VIAL ONE (13:20)
[2022-09-05] MEDS ORDERED: PHENYLEPHRINE 100MCG/ML 5ML SYR ONE (13:46)
[2022-09-05] MEDS ORDERED: METOPROLOL TARTRATE 1 MG/ML VIAL IV ONE ×6 (13:49→15:38)
[2022-09-05] MEDS ORDERED: SUGAMMADEX SODIUM 200 MG/2 ML VIAL IV ONE (14:55)
[2022-09-05] MEDS ORDERED: ESMOLOL HCL INJ 10 MG/ML 10ML VIAL IV ONE (14:56)
[2022-09-05] MEDS ORDERED: KETOROLAC 30 MG/ML VIAL ONE (15:00)
--- NOTE | 2022-09-05 15:09 | Post Operative Brief Note ---
Immediate Post Op Note v1 Date of Surgery September 05, 2022 Pre & Post Diagnosis Operation Date: 09/05/22 08:10 pre-op diagnosis: acute cholecystitis, cholelithiasis post-op diagnosis: acute cholecystitis, cholelithiasis I identified the patient and participated in the time-out.: Yes Procedure Operation Date: 09/05/22 08:10 laparoscopic cholecystectomy Surgeon Aly Trotter MD Dowel Inserting Machine Operator Yuriy Nathan. RYAN Hobson Estimated Blood Loss 30 Findings Consistent with Post-Op Diagnosis severe inflammation on gallbladder wall. with gallstone. Fluids 700ml Specimens gallbladder Drains [place]-Domínguez Drain (10 flat) Anesthesia Type General Complications none Disposition Accompanied Patient To Recovery: Yes
--- NOTE | 2022-09-05 15:12 | Operative Report ---
Post Operative Report Procedure Date: September 05, 2022 Pre & Post Diagnosis: [acute cholecystitis] Time Out: I identified the patient and participated in the time-out. Procedure: [laparoscopic cholecystectomy] Surgeon: [Aly Trotter MD] Director Of Solutions Architecture: [Yuriy Carrasco MD] Estimated Blood Loss: [see Dr Trotter's note] Findings: [acute cholecystitis] Specimens [Gallbladder] Description of Procedure: [I participated in the procedure, assisting Dr Trotter in performing the case, including retraction and entrance into the abdomen.] Attestation: I attest to the content of the Intraoperative Record and any orders documented therein. Any exceptions are noted below.
--- NOTE | 2022-09-05 15:29 | Operative Report ---
Post Operative Report Pre & Post Diagnosis Operation Date: 09/05/22 08:10 pre-op diagnosis: acute cholecystitis, cholelithiasis pre-op diagnosis: acute cholecystitis, cholelithiasis I identified the patient and participated in the time-out.: Yes Procedure Operation Date: 09/05/22 08:10 laparoscopic cholecystectomy Surgeon Aly Trotter MD Security System Analyst Yuriy Nathan. RYAN Hobson Estimated Blood Loss 30 Findings Consistent with Post-Op Diagnosis severe inflammation on gallbladder wall, cholelithiasis. Fluids 700ml Specimens gallbladder Drains CARSON drainage Anesthesia Type General Complications none Disposition Accompanied Patient To Recovery: Yes Indications Patient is a 76 years old gentleman who was admitted to the hospital for acute cholecystitis with abdominal pain, patient had ultrasound, CT scan and HIDA scan which her diagnosis of acute cholecystitis with cholelithiasis. I recommend to do a laparoscopy cholecystectomy possible open possible cholangiogram. I did talk to patient about the benefit the risk about any of the procedure I indicated the risks may include but not limited to such as a bleeding, infection, injury or other organs, injury or common bile duct, bile leak, may need ERCP, incisional hernia, and myocardial infarction even . pt understood, he agreed with surgery, he signed informed consent, I answered all questions. Description of Procedure After we identified patient to verify procedure. We brought patient to the OR put the patient on the supine position on the OR table. Patient received a SCD on bilateral ibuprofen DVT. Patient received 2 g cefoxitin IV for prophylactic antibiotic on the floor before patient come to the OR. Patient received general anesthesia without difficulty. Abdomen was propped and dropped in routine fashion. After timeout. I make a small incisions as above umbilical open fascia under the direct vision., Put a Mason trocar in. Connected to CO2 to create pneumoperitoneum for low rate at the 10 L/min, pressure no more than 14 mmHg. Once we get a nice pneumoperitoneum, we put the camera in look around the abdomen. Some free fluid around the liver. The gallbladder significant and severe inflammation of the gallbladder wall with the distention. No lesion on the liver. There may put another two 5 mm trocar on the right upper quadrant. Pulled the 11 mm trocar in the epigastric area. Once all trocar again we used a large needle decompress the gallbladder first. We used a grasper to hold the base of the gallbladder put the directions of the diaphragm. Another grasper to hold the partial gallbladder put the lateral to exposed triangle Calot, the cystic duct was identified and mobilized then I put two 10-minute metal clip on the proximal cystic duct and one on the distal cystic duct. I used a scissor transection cystic duct, recheck no bile leak. the cystic artery was identified and mobilized then I put two 5mm metal clip on the proximal cystic artery and one on the distal cystic artery, then I use of scissor to transection cystic artery, recheck no active bleeding. The use of the Bovie to takedown of the gallbladder from liver bed. Recheck and no active bleeding and no bile leak. We remove the gallbladder through the bag. We will use a Mason trocar and connected to CO2 to create pneumoperitoneum again overall the abdomen no bile leak and no active bleeding from liver bed. However due to patient had a significant severe inflammation on the gallbladder wall, I decided to put the one 10 mm CARSON drainage on the gallbladder fossa. We used 2-0 silk fixes the CARSON drainage on the skin. We removed all trocars under direct vision no active bleeding from trocar sites. Pneumoperitoneum was released. Close umbilical incision fashion thereby using 0 Vicryl [id number] x2, and close subcutaneous layer by using 2-0 Vicryl interrupted, close skin by use of 4-0 Vicryl continuous running. We put the dressing on. The patient tolerated procedure well all instrument needle sponge count correct x2 in the case patient transferred to recovery room in stable condition specimen sent to pathology after procedure I did talk to patient about the OR finding procedure we did patient understand the litigation legal assistant Dr. Rowley and Shraddha are necessary for this the procedure. thier roles are holding the camera, attraction and exposure. thank you I attest to the content of the Intraoperative Record and any orders documented therein. Any exceptions are noted below.
--- NOTE | 2022-09-05 15:55 | Anesthesiology Progress Note ---
Date of Service September 05, 2022 Anesthesia Post Procedure Vital Signs Vital Signs: Temp Pulse Pulse Resp BP BP Pulse Ox 09/05/22 15:45 108 H 18 106/66 99 09/05/22 15:35 95 H 16 117/71 100 09/05/22 15:29 36.2 C L 107 H 16 116/70 100 09/05/22 11:49 37.1 C 105 H 18 150/92 H 95 09/05/22 10:42 36.7 C 104 H 19 132/88 92 09/05/22 07:30 106 H 09/05/22 07:30 09/05/22 08:27 36.7 C 119 H 22 132/82 90 09/05/22 02:28 36.9 C 99 H 20 126/76 90 09/05/22 00:00 111 H 09/04/22 21:02 09/04/22 23:57 118 H 18 148/94 H 91 09/04/22 19:14 37.4 C 124 H 18 171/107 H 91 09/04/22 17:12 36.7 C 125 H 18 154/90 H 90 O2 Del Method O2 Flow Rate 09/05/22 15:45 Nasal Cannula 3 09/05/22 15:35 Nasal Cannula 3 09/05/22 15:29 Oxymask 6 09/05/22 11:49 Room Air 09/05/22 10:42 Room Air 09/05/22 07:30 09/05/22 07:30 Room Air, Nasal CPAP 09/05/22 08:27 CPAP 09/05/22 02:28 Room Air, CPAP 09/05/22 00:00 09/04/22 21:02 CPAP 09/04/22 23:57 CPAP 5 09/04/22 19:14 Room Air 09/04/22 17:12 Room Air Transfer of Care Handoff Completed per policy Notes Mental Status: alert / awake / arousable and participated in evaluation Patient Amnestic to Procedure: Yes Nausea / Vomiting: adequately controlled Pain: adequately controlled Airway Patency, RR, SpO2: stable & adequate BP & HR: stable & adequate Hydration State: stable & adequate Anesthetic Complications: no major complications apparent
[2022-09-05] MEDS ORDERED: TRIAMCINOLONE ACET 0.1% OINT 15 GM TUBE TOP PRN (16:21)
[2022-09-05] MEDS ORDERED: oxyCODONE/ACETAMINOPHEN 5mg/325mg TAB PO PRN (16:21)
[2022-09-05] MEDS ORDERED: HYDROmorphone INJ 0.5 MG/0.5 ML SYR IV PRN (16:21)
[2022-09-05] MEDS ORDERED: PIPERACILLIN/TAZOBACTAM 4.5 GM (over 30 mins) IV ONE (16:45)
[2022-09-05] MEDS: ATORVASTATIN 40 MG TAB PO SCH (17:29)
[2022-09-05] MEDS: METOPROLOL SUCC 50MG EXT REL TAB PO SCH (21:11)
[2022-09-05] MEDS: PIPERACILLIN/TAZOBACTAM 4.5 GM in DEXTROSE 5% 100 ML IV SCH (21:14)
[2022-09-06] MEDS: METOPROLOL TARTRATE 50 MG TAB PO SCH ×4 (02:40→20:48)
[2022-09-06 05:11] LABS: Basophils # (auto) 0.02 K/uL (0-0.2); Basophils % (auto) 0.2 %; Eosinophils # (auto) 0.24 K/uL (0-0.50); Eosinophils % (auto) 2.7 %; Hematocrit (blood only) 31.3 % (42.0-52.0); Hemoglobin 10.7 g/dl (14.0-18.0); Immature Granulocytes # (auto) 0.04 K/uL (0.01-0.20); Immature Granulocytes % (auto) 0.5 %; Lymphocytes % (auto) 12.4 %; Mean Corpuscular Hemoglobin 32.5 pg (25.0-34.0); Mean Corpuscular Hgb Conc 34.2 g/dL (32.0-36.0); Mean Corpuscular Volume 95.1 fL (80.0-100.0); Mean Platelet Volume 10.8 fL (9.4-12.4); Monocytes # (auto) 0.98 K/uL (0.11-0.59); Monocytes % (auto) 11.1 %; Neutrophils # (auto) 6.46 K/uL (1.40-6.50); Neutrophils % (auto) 73.1 %; Platelet Count 176 K/uL (130-400); RDW Coefficient of Variation 13.1 % (11.5-14.5); RDW Standard Deviation 45.6 fL (36.4-46.3); Red Blood Count 3.29 M/uL (4.70-6.10); White Blood Count 8.84 K/ul (4.8-10.8)
[2022-09-06 05:27] LABS: Albumin Globulin Ratio 1.1 (0.9-2); Albumin Level 2.5 gm/dl (3.4-5.0); BUN Creatinine Ratio 21.4 (10-20); Bilirubin,Total 1.2 mg/dl (0.2-1.0); Calcium 7.7 mg/dl (8.6-10.3); Creatinine Clr Calc Pharmacy 73.5 ml/min; Est GFR (African American) 82.6 ml/min; Est GFR (Non-African American) 71.2 ml/min; Globulin 2.3 gm/dl (2.5-4.0); Potassium 3.3 mmol/L (3.5-5.1); Total Protein 4.8 gm/dl (6.0-8.3)
[2022-09-06] MEDS ORDERED: POTASSIUM CHLORIDE 20 MEQ/15 ML UDC PO STA (06:28)
--- NOTE | 2022-09-06 06:28 | Surgery Progress Note ---
Date of Service September 06, 2022 Assessment & Plan (1) Gallstones: Plan: Patient is status post laparoscopic cholecystectomy on 09/05/2022 (postop day #1) Continue analgesics Continue antiemetics Continue CARSON drain to bulb suction (primary surgeon would like patient to go home with this in place) Continue antibiotics in form of Zosyn while hospitalized A.m. labs this morning do not demonstrate any leukocytosis and there is not been a significant drop in patient's hemoglobin and hematocrit. LFTs appear acceptable on this morning's labs as well. Patient is noted to have a slight hypokalemia and this will be supplemented. Admission and Anticipated Discharge Date Admission Date: September 05, 2022 Supervising Physician Co-Signing Physician Notes Patient seen and examined, labs reviewed, agree with above. POD #1 laparoscopic cholecystectomy. Overall doing well, feels much better than prior to admission. On exam he is afebrile stable vitals, abdomen is soft, probably tender to palpation, dressings clean dry and intact. CARSON serosanguineous. Labs unremarkable. We will advance him to regular diet, continue CARSON drain, this will be removed in the [facility] surgery clinic. Okay to restart Eliquis. Subjective Patient is resting comfortably in bed. Since his surgery he denies any significant pain. He has not had any nausea or vomiting. He has not yet had return of bowel function since surgery. He has tolerated clear liquids without any worsening abdominal pain or nausea or vomiting. Physical Exam Gastrointestinal (Abdomen): Abdomen is soft, nonrigid, nondistended. There is minimal to no pain with palpation. He does have a CARSON drain in place draining serosanguineous fluid. Surgical incisions are covered with dressings that are clean, dry, and intact Results & Data Vital Signs (Past 12 Hours) Vital Signs Temp Pulse Resp BP Pulse Ox O2 Del Method 09/06/22 02:38 36.6 C 94 H 16 105/67 CPAP 09/05/22 19:30 Room Air 09/05/22 22:19 36.4 C L 93 H 14 122/73 96 Room Air 09/05/22 21:10 84 94/65 L 09/05/22 20:01 36.4 C L 80 17 106/68 95 Room Air PG Care Time/CCT Total # of Minutes Spent Total Time Spent with Patient: Total time spent is greater than 50% in coordination of care (as documented) at patient's floor/unit and/or counseling patient: Coding Level of Care Code 46258 Post Operative Follow-Up Diagnoses Gallstones K80.20
[2022-09-06] MEDS: PIPERACILLIN/TAZOBACTAM 4.5 GM in DEXTROSE 5% 100 ML IV SCH ×3 (06:48→21:46)
[2022-09-06] MEDS: FUROSEMIDE 40 MG TAB PO SCH (07:37)
[2022-09-06] MEDS: INSULIN ASPART PER UNIT CHARGE SC SCH ×4 (07:48→21:47)
[2022-09-06] MEDS: LANTUS PER UNIT CHARGE SQ SCH (09:21)
[2022-09-06] MEDS: METOPROLOL SUCC 50MG EXT REL TAB PO SCH ×2 (09:21→20:51)
[2022-09-06] MEDS: VALSARTAN/SACUBITRIL 51/49 MG TAB PO SCH ×2 (09:22→20:48)
[2022-09-06] MEDS: MULTIVITAMIN TAB PO SCH (12:25)
[2022-09-06] MEDS: ATORVASTATIN 40 MG TAB PO SCH (12:25)
--- NOTE | 2022-09-06 13:12 | Cardiology Progress Note ---
Date of Service September 06, 2022 Assessment & Plan Admission and Anticipated Discharge Date Admission Date: September 05, 2022 Subjective He is feeling better postsurgery. He denies any chest pain or chest pressure or shortness of breath. He is resting comfortably. He did have a large loose bowel movement which caused the mass unfortunately. He is unaware of any palpitations or fluttering or feeling his heart racing. He has no lower extremity edema and denies any orthopnea. Telemetry strips were reviewed Results & Data Vital Signs (Past 12 Hours) Vital Signs Temp Pulse Pulse Resp BP Pulse Ox O2 Del Method 09/06/22 11:02 36.9 C 90 18 106/67 91 Room Air 09/06/22 07:13 36.9 C 108 H 16 110/71 92 Room Air 09/06/22 07:29 85 09/06/22 02:38 36.6 C 94 H 16 105/67 CPAP he is awake alert and oriented x3. He is not in any distress HEENT moderately reduced carotid upstrokes Lungs: Clear to auscultation bilaterally no rales rhonchi or wheezing Heart: Irregular rate and rhythm no appreciable murmurs abdomen: Soft mildly tender positive bowel sounds Extremities: No clubbing cyanosis or edema (1) Permanent atrial fibrillation with rapid ventricular response: Plan: Metoprolol changed from long-acting to short acting preparation to allow for better [id number] management of perioperative blood pressure and heart rate and thereby minimize the risk of postoperative hypotension (which occurred after his recent hip surgery) and to better control his rapid ventricular rate (which also occurred after hip surgery). His heart rates are slightly fast today but he is having some discomfort along with an episode of loose stools and he feels stressed about his who is a nurse who he notes "knows everything" He looks comfortable denying any anginal symptoms or heart failure symptoms. And he is unaware of any palpitations. His blood pressures are on the low end of normal and he is not lightheaded. I would continue with short acting metoprolol for now and when he is able to go home he can be switched back to his normal Toprol regiment. (2) Anticoagulant long-term use: Plan: He is chronically on apixaban but he has not taken this for several days. Given elevated [id number] score would resume apixaban 5 mg twice daily postoperatively when safe from a bleeding standpoint (3) CAD (coronary artery disease): Plan: Significant CAD but revascularized with CABG last year. (4) Status post coronary artery bypass graft: (5) Ischemic cardiomyopathy: Volume status appropriate currently.He is now taking n.p.o. and should hopefully equilibrate his volume status on his own.
[2022-09-06] MEDS: APIXABAN 5 MG TABLET PO SCH (20:48)
--- NOTE | 2022-09-06 22:56 | Hospitalist Progress Note ---
Date of Service September 04, 2022 Assessment & Plan (1) Atrial fibrillation: Plan: Increased rate due to not taking his usual medications this morning. Will continue on his usual rate control with metoprolol. Holding Eliquis in case of need of operation Suspect mildly elevated troponin due to missing his metoprolol dose this morning and increased rate - no chest pain to suggest ACS (2) Ischemic cardiomyopathy: Plan: Continue metoprolol succinate and Entresto (3) Chronic systolic (congestive) heart failure: Plan: Continue metoprolol and Lasix Avoid further IV fluids (1L NSS bolus given in the ER) (4) Type 2 diabetes mellitus: Plan: HbA1C 6.0 in June, no need to repeat Hold liraglutide and Toujeo (last took last night) Novolog: --Goal BSG Range: Low 110 mg/dL, High 140 mg/dL --Correction Factor: 40 mg/dL/unit --Carbohydrate ratio = 13 g/unit --BSGs ACHS if eating, q6h if npo Add basal if requiring frequent dosing Admission and Anticipated Discharge Date Admission Date: September 05, 2022 Subjective Date of service August 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 Work-up in progress but underlying medical history also major considerations see problem list. Physical Exam Constitutional: WD/WN, vitals as above Eyes: PERRL, conjunctivae normal, anicteric sclerae ENMT: external ear and nose normal, oropharynx normal Respiratory: normal respiratory effort, lungs clear to auscultation Cardiovascular: RRR, no murmur, no edema Gastrointestinal (Abdomen): Positive bowel sounds tender Skin: no rashes, warm and dry Neurologic: PERRL, EOMI, accommodation nl, no face palsy, no dysarthria Psychiatric: A+Ox3, euthymic affect Results & Data Results & Data Vital Signs (Past 12 Hours) Vital Signs Temp Pulse Pulse Resp BP BP Pulse Ox 09/06/22 20:47 37 C 96 H 18 107/69 95 09/06/22 19:37 36.8 C 99 H 15 100/62 95 09/06/22 16:51 36.5 C 90 19 110/66 94 09/06/22 15:09 101 H 09/06/22 11:02 36.9 C 90 18 106/67 91 O2 Del Method 09/06/22 20:47 Room Air 09/06/22 19:37 Room Air 09/06/22 16:51 Room Air 09/06/22 15:09 09/06/22 11:02 Room Air PG Care Time/CCT Total # of Minutes Spent Total Time Spent with Patient: Total time spent is greater than 50% in coordination of care (as documented) at patient's floor/unit and/or counseling patient: Coding Level of Care Code 81324 SUB INP/OBS CARE 2/35MIN Diagnoses Atrial fibrillation I48.91 Ischemic cardiomyopathy I25.5 Chronic systolic (congestive) heart failure I50.22 Type 2 diabetes mellitus E11.9 Time Spent (min) 35
--- NOTE | 2022-09-06 23:20 | Hospitalist Progress Note ---
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 Today is postop day 0 laparoscopic cholecystectomy Seen postop Doing well Physical Exam Constitutional: WD/WN, vitals as above Eyes: PERRL, conjunctivae normal, anicteric sclerae ENMT: external ear and nose normal, oropharynx normal Respiratory: normal respiratory effort, lungs clear to auscultation Cardiovascular: RRR, no murmur, no edema Gastrointestinal (Abdomen): Positive bowel sounds dressings intact Skin: no rashes, warm and dry Neurologic: PERRL, EOMI, accommodation nl, no face palsy, no dysarthria Psychiatric: A+Ox3, euthymic affect Results & Data Results & Data Vital Signs (Past 12 Hours) Vital Signs Temp Pulse Pulse Resp BP BP Pulse Ox 09/06/22 23:03 37.0 C 85 16 110/70 92 09/06/22 20:47 37 C 96 H 18 107/69 95 09/06/22 19:37 36.8 C 99 H 15 100/62 95 09/06/22 16:51 36.5 C 90 19 110/66 94 09/06/22 15:09 101 H O2 Del Method O2 Flow Rate 09/06/22 23:03 CPAP 5 09/06/22 20:47 Room Air 09/06/22 19:37 Room Air 09/06/22 16:51 Room Air 09/06/22 15:09 PG Care Time/CCT Total # of Minutes Spent Total Time Spent with Patient: Total time spent is greater than 50% in coordination of care (as documented) at patient's floor/unit and/or counseling patient: Coding Level of Care Code 07863 SUB INP/OBS CARE 2/35MIN Diagnoses Time Spent (min) 35
--- NOTE | 2022-09-06 23:42 | Hospitalist Progress Note ---
Date of Service September 06, 2022 Assessment & Plan (1) Atrial fibrillation: Plan: Increased rate due to not taking his usual medications this morning. Will continue on his usual rate control with metoprolol. Resume Eliquis tomorrow if okay with surgery (2) Ischemic cardiomyopathy: Plan: Continue metoprolol succinate and Entresto (3) Chronic systolic (congestive) heart failure: Plan: Continue metoprolol and Lasix Avoid further IV fluids (1L NSS bolus given in the ER) (4) Type 2 diabetes mellitus: Plan: HbA1C 6.0 in June, no need to repeat Add basal if requiring frequent dosing Admission and Anticipated Discharge Date Admission Date: September 03, 2022 Anticipated date of discharge: 09/07/22 Subjective Patient seen on hospitalist rounds Today is postop day #1 laparoscopic cholecystectomy Physical Exam Constitutional: WD/WN, vitals as above Eyes: PERRL, conjunctivae normal, anicteric sclerae ENMT: external ear and nose normal, oropharynx normal Neck: trachea midline, no thyromegaly Respiratory: normal respiratory effort, lungs clear to auscultation Cardiovascular: RRR, no murmur, no edema Gastrointestinal (Abdomen): Positive bowel sounds Skin: no rashes, warm and dry Neurologic: PERRL, EOMI, accommodation nl, no face palsy, no dysarthria Psychiatric: A+Ox3, euthymic affect Results & Data Results & Data Vital Signs (Past 12 Hours) Vital Signs Temp Pulse Pulse Resp BP BP Pulse Ox 09/06/22 23:03 37.0 C 85 16 110/70 92 09/06/22 20:47 37 C 96 H 18 107/69 95 09/06/22 19:37 36.8 C 99 H 15 100/62 95 09/06/22 16:51 36.5 C 90 19 110/66 94 09/06/22 15:09 101 H O2 Del Method O2 Flow Rate 09/06/22 23:03 CPAP 5 09/06/22 20:47 Room Air 09/06/22 19:37 Room Air 09/06/22 16:51 Room Air 09/06/22 15:09 PG Care Time/CCT Total # of Minutes Spent Total Time Spent with Patient: Total time spent is greater than 50% in coordination of care (as documented) at patient's floor/unit and/or counseling patient: Coding Level of Care Code 99871 SUB INP/OBS CARE 03/05MIN Diagnoses Atrial fibrillation I48.91 Ischemic cardiomyopathy I25.5 Chronic systolic (congestive) heart failure I50.22 Type 2 diabetes mellitus E11.9 Time Spent (min) 25
--- NOTE | 2022-09-07 05:53 | Surgery Progress Note ---
Date of Service September 07, 2022 Assessment & Plan (1) Gallstones: Plan: Patient is status post laparoscopic cholecystectomy on 09/05/2022 (postop day #2) Continue analgesics and antiemetics as needed Continue CARSON drain to bulb suction (at time of discharge this will remain in place and primary surgeon will remove this in the office at the appropriate time) Continue antibiotics in form of Zosyn while hospitalized Admission and Anticipated Discharge Date Admission Date: September 05, 2022 Supervising Physician Co-Signing Physician Notes Patient seen and examined, agree with above. POD #2 lap cholecystectomy, doing well, tolerating diet. Feels much better than on arrival. On exam afebrile stable vitals, abdomen soft, probably tender to palpation. Incisions with dressings clean dry and intact, CARSON serosanguineous. Okay to discharge to home from general surgery standpoint, follow-up with Dr. Trotter for drain removal and postop follow-up. Wound care instructions, activity restrictions, return precautions given, call with questions or concerns Subjective Patient reports having a good nighthe has tolerated solid foods without any nausea, vomiting, or worsening abdominal pain. He notes his bowels have moved since surgery. He notes he only has minor pain from his surgical incisions. Physical Exam Gastrointestinal (Abdomen): Abdomen is soft, nonrigid, and nondistended. There is no pain with palpation. Surgical incisions are covered with dressings that are clean, dry, and intact. CARSON drain is draining serosanguineous fluid and is drained 40 cc over the past shift. Results & Data Vital Signs (Past 12 Hours) Vital Signs Temp Pulse Pulse Resp BP BP Pulse Ox 09/07/22 03:22 36.9 C 98 H 18 130/81 96 09/07/22 00:01 108 H 09/06/22 23:03 37.0 C 85 16 110/70 92 09/06/22 20:47 37 C 96 H 18 107/69 95 09/06/22 19:37 36.8 C 99 H 15 100/62 95 O2 Del Method O2 Flow Rate 09/07/22 03:22 Nasal CPAP 09/07/22 00:01 09/06/22 23:03 CPAP 5 09/06/22 20:47 Room Air 09/06/22 19:37 Room Air PG Care Time/CCT Total # of Minutes Spent Total Time Spent with Patient: Total time spent is greater than 50% in coordination of care (as documented) at patient's floor/unit and/or counseling patient: Coding Level of Care Code 75116 Post Operative Follow-Up Diagnoses Gallstones K80.20
[2022-09-07] MEDS: PIPERACILLIN/TAZOBACTAM 4.5 GM in DEXTROSE 5% 100 ML IV SCH ×2 (06:48→12:41)
[2022-09-07] MEDS: INSULIN ASPART PER UNIT CHARGE SC SCH ×2 (08:43→12:40)
[2022-09-07] MEDS: LANTUS PER UNIT CHARGE SQ SCH (08:44)
[2022-09-07] MEDS: APIXABAN 5 MG TABLET PO SCH (08:46)
[2022-09-07] MEDS: VALSARTAN/SACUBITRIL 51/49 MG TAB PO SCH (08:46)
[2022-09-07] MEDS: FUROSEMIDE 40 MG TAB PO SCH (08:46)
[2022-09-07] MEDS: METOPROLOL SUCC 50MG EXT REL TAB PO SCH (08:47)
[2022-09-07] MEDS: MULTIVITAMIN TAB PO SCH (11:06)
[2022-09-07] MEDS: ATORVASTATIN 40 MG TAB PO SCH (11:06)
[2022-09-07] MEDS ORDERED: POTASSIUM CHLORIDE CRTAB 20 MEQ TABCR PO STA (12:26)
--- NOTE | 2022-09-07 12:42 | Discharge Summary ---
Date of Service September 07, 2022 Admission HPI Per Admitting Provider Eduardo Tran is a 76 year old male who presents to the ER with abdominal pain. He reports similar pain intermittently since July that would last for an hour, approximately occurring once a week or every two weeks. No association with food. However current pain lasted much longer since 11pm yesterday until he received morphine in the ER. Initially it was 9/10 severity, getting progressively worse and constant until 2am with severity 10/10. Now resolved after morphine given in the ER. He took Zofran, Pepto-bismol and two Tylenol - did not help. Not positional. Associated nausea and vomited x4, small volume, no hematemesis. 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 Principal Diagnosis Atrial fibrillation chronic ischemic cardiomyopathy Discharge Exam Constitutional WD/WN, vitals as above Eyes PERRL, conjunctivae normal, anicteric sclerae ENMT external ear and nose normal, oropharynx normal Neck trachea midline, no thyromegaly Respiratory normal respiratory effort, lungs clear to auscultation Cardiovascular RRR, no murmur, no edema Skin no rashes, warm and dry Neurologic PERRL, EOMI, accommodation nl, no face palsy, no dysarthria Psychiatric A+Ox3, euthymic affect Discharge Data Allergies Allergy/AdvReac Type Severity Reaction Status Date / Time spironolactone Allergy Severe Extreme Unverified 09/03/22 09:39 diarrhea pyridostigmine Allergy Mild Vomiting Verified 09/02/22 12:00 Consultations 09/04/22 15:43 Consult Cardiology Routine Procedures Performed Operation Date: 09/05/22 08:10 Actual Procedures p Laparoscopic Cholecystectomy - Aly Trotter MD Ordered Studies 09/03/22 09:02 CT abd pelvis IV con only Stat 09/03/22 12:46 US GB [US gallbladder] Stat Hospital Course (1) Atrial fibrillation: Increased rate due to not taking his usual medications this morning. Will continue on his usual rate control with metoprolol. Resume Eliquis tomorrow if okay with surgery (2) Ischemic cardiomyopathy: Continue metoprolol succinate and Entresto (3) Chronic systolic (congestive) heart failure: Continue metoprolol and Lasix Avoid further IV fluids (1L NSS bolus given in the ER) (4) Type 2 diabetes mellitus: HbA1C 6.0 in June, no need to repeat Add basal if requiring frequent dosing Total Time Total Time Spent Total Time Spent (In Minutes): 42 Discharge Plan Discharge Items Patient Disposition: Home - Self-Care Reason For Visit: BILIARY COLIC Discharge Diagnosis: Acute cholecystitis Health Concerns: The healing process follow-up with your surgeon Dr. Trotter Goals: Also follow-up with your primary care physician Activity: Resume your previous activity Lifting: None Bathing: Keep incision dry Exercise/Sports: None Driving/Machine Use: ask surgeon Weightbearing: Full weightbearing Non-emergency contact: Primary Care Provider and Surgeon Call non-emergency contact if: you have any medication questions, your pain is concerning for you and you have a fever Follow-up/Referrals: Matteo Young MD [Primary Care Provider] - 09/15/22 11:00 am (Will see Lady Simeon PA-C in Dr Young's office) Diet: Regular Diet Texture: Easy to Chew Addtl Attending Provider Instructions: Follow-up with your other specialists including cardiology Pending Studies at Discharge: No Stand-Alone Forms: My [facility] [employer], Smoking Cessation Medications and DC Order Prescriptions: Continued Entresto 49-51 mg tablet 1 tab PO BID Qty: 180 3RF furosemide [Lasix] 20 mg tablet 40 mg PO DAILY metoprolol succinate [Toprol XL] 100 mg tablet extended release 24 hr 100 mg PO BID Qty: 180 3RF triamcinolone acetonide 0.1 % ointment 1 applic TOP DAILY PRN (Reason: ud) Rx Instructions: Apply to both arms once daily (DME) pen needle, diabetic [BD Ultra-Fine [place] Pen Needle] 32 gauge x 5/32" needle See Rx Instructions .ROUTE .MEDSUPPLY Qty: 200 3RF Rx Instructions: Use to inject Vitoza and Tujeo DAILY atorvastatin 40 mg tablet 40 mg PO QDL multivitamin Tablet 1 tab PO QDL Eliquis 5 mg tablet 5 mg PO BID Victoza 3-Fady 0.6 mg/0.1 mL (18 mg/3 mL) pen injector 1.2 mg subcut QDL [place] SoloStar U-300 Insulin 300 unit/mL (1.5 mL) insulin pen 20 unit SUBCUT DAILY Discharge Orders: Discharge Order (Routine); Ordered 09/07/22 Ordered By: Gabino Alonzo Admission Data Admit Date/Time: 09/05/22 10:32 Attending Provider: Gabino Alonzo Admit Provider: Alex France Primary Care Provider: Matteo Young Other Providers: Kevon Graves Other Interventions: Discharge Summary Assessment (RN) Last Done: 09/07/22 13:10 Coding Level of Care Code 80703 INP/OBS DISCH >30 MIN Diagnoses Atrial fibrillation I48.91 Ischemic cardiomyopathy I25.5 Chronic systolic (congestive) heart failure I50.22 Type 2 diabetes mellitus E11.9 Time Spent (min) 42
--- NOTE | 2022-09-08 07:44 | Nuclear Medicine Report ---
NM hepatobiliary EF CLINICAL HISTORY: 76 years-old Male with biliary colic ?acute aren. The right upper quadrant abdomi nal pain TECHNIQUE: Following the intravenous administration of 8.5 mCi of technetium-99m Choletec, sequentia l abdominal images were obtained. COMPARISON: CT 09/03/2022 FINDINGS: There is prompt, uniform accumulation of the tracer by the liver. There is normal filling of the int rahepatic ducts, common bile duct with normal excretion of the tracer into the duodenum. The gallblad jennifer does not fill with tracer on the initial images at 60 minutes. IV morphine was then given to the patient. The gallbladder again is not visualized on the delayed images. IMPRESSION: 1. Findings compatible with cystic duct obstruction/acute cholecystitis. 2. No common bile duct obstruction. ACT 112: Negative or not required by law. The above report was generated using voice recognition software. It may contain grammatical, syntax o r spelling errors. Electronically signed by: Ezra Hong M.D. 09/04/2022 2:21 PM
== END 2022-09-07 14:30 | disposition home or self-care (01) | DRG 418 ==
LOC: ED 08:25 → EDINP 08:25 → SUATTDRO 17:18 → 2S 21:35

== ENCOUNTER 2023-09-22 00:05 | Inpatient (IN) ==
--- NOTE | 2023-09-22 00:25 | Emergency Department Note ---
History of Present Illness General Chief complaint: Abdominal Pain Stated complaint: SEVERE ABDOMINAL PAIN,HERNIA THROUGH STOMACH Time Seen by Provider: 09/22/23 00:11 History of Present Illness Maximum Pain Intensity: 8 This 77-year-old male with a past medical history of A-fib on Eliquis, heart failure, diabetes presents the ER complaining of severe abdominal pain with nausea and vomiting today. No history of bowel obstruction. He has had his gallbladder surgically removed. No other abdominal surgeries. Patient denies chest pain, dyspnea, fevers, flulike illness. He has not had a bowel movement today. Last 1 was yesterday. He took his Eliquis today at 1400. Home Medications Medication Instructions Recorded Confirmed Type triamcinolone acetonide 0.1 % 1 applic topical DAILY PRN ud 03/04/22 09/22/23 History topical ointment multivitamin 1 tab PO QDL 04/23/22 09/22/23 History insulin glargine U-300 conc 300 0 unit subcut DAILY 09/03/22 09/22/23 History unit/mL (1.5 mL) subcutaneous pen (Touclyaton SoloStar U-300 Insulin) apixaban 5 mg tablet (Eliquis) 5 mg PO BID #180 tabs 12/30/22 09/22/23 Rx atorvastatin 40 mg tablet 40 mg PO QDL #90 tabs 01/07/23 09/22/23 Rx sildenafil 100 mg tablet 100 mg PO DAILY PRN sexual 01/21/23 09/22/23 Rx activity #10 tabs sacubitril 49 mg-valsartan 51 mg 1 tab PO BID #180 tabs 04/28/23 09/22/23 Rx tablet (Entresto) spironolactone 25 mg tablet 12.5 mg (1/2 x 25 mg) PO DAILY #30 05/04/23 09/22/23 Rx tabs metoprolol succinate 100 mg 100 mg PO BID #180 tabs 05/25/23 09/22/23 Rx tablet,extended release 24 hr (Toprol XL) furosemide 20 mg tablet (Lasix) 20 mg PO DAILY 09/22/23 09/22/23 History liraglutide 0.6 mg/0.1 mL (18 mg/3 1.2 mg subcut DAILY 09/22/23 09/22/23 History mL) subcutaneous pen injector (Victoza 2-Fady) Allergies Allergy/AdvReac Type Severity Reaction Status Date / Time spironolactone Allergy Severe Extreme Verified 09/22/23 02:46 diarrhea pyridostigmine Allergy Mild Vomiting Verified 09/22/23 02:46 Past Med/Surg History Problem List (Updated 09/22/23 @ 02:31 by Lynne Rainey PA-C) Hernia (Acute) Small bowel obstruction (Acute) Vitamin D deficiency Diabetic peripheral neuropathy Permanent atrial fibrillation with rapid ventricular response Permanent atrial fibrillation Sleep apnea CPAP-compliant Nausea and vomiting Gallstones (Acute) Acute upper abdominal pain (Acute) Leg edema, right S/P total right hip arthroplasty H/O total hip arthroplasty History of total knee arthroplasty Atrial fibrillation with RVR Postoperative hypotension Cerebral vascular malformation Fourth nerve palsy Ischemic cardiomyopathy EF 30-35% Hypercholesterolemia Anemia, mild Chronic venous insufficiency (Chronic) Lymphedema (Chronic) Lower extremity edema CAD (coronary artery disease) Chronic systolic (congestive) heart failure Surgical wound dehiscence (Acute) Anticoagulant long-term use Status post coronary artery bypass graft Status post ligation of left atrial appendage Hypertension controlled, stable per pt Type 2 diabetes mellitus IDDM Medical History Nephrolithiasis Asthmatic bronchitis Pulmonary hypertension mild, PASP 45-50 mmHg GERD (gastroesophageal reflux disease) rare, stable per pt History of blood transfusion 2021 Eye problem Pt c/o ongoing issue with his vision. states he's been worked up for myesthenia gravis & 4th nerve palsy but no official diagnosis Venous stasis ulcer BLLE (hx) - [place] [facility] in past 2021 CAD (coronary artery disease) s/p CABG x3 with IMMANUEL clip (04/2021) Follows with Dr. Hagan Venous stasis ulcers of both lower extremities Diabetic retinopathy History of rectal abscess > 20 yrs ago Surgical History History of cardiac catheterization 02/2021 [place] > CABG History of coronary artery bypass graft x 3 04/22/2021 History of incision and drainage rectal abscess S/P tonsillectomy Family History Father Prostate cancer Myocardial infarction Coronary arteriosclerosis Other Family history non-contributory No family history of adverse response to anesthesia Denies family history of Colon cancer Ovarian cancer Breast cancer Social History Smoking Status: Never smoker Second Hand Exposure: Yes (as a child); Do You Dip or Chew Tobacco: No; Hx Alcohol Use: No Hx Substance Use: No Preferred Language: Icelandic Communication Ability: Effective Visual Impairment: Diminished Hearing Ability: Normal Raspberry Checker Required: No Beliefs That Will Affect Care: None marital status: Current Living Situation: Spouse Current Living Situation Comment: Lives at home with current occupational status: retired How many Children do You have: 1 Other Information That Helps Us Care for You: No Feels Safe at Home: Yes Safety Concerns: Feels Safe At This Time Childhood Exposure to Second-Hand Smoke: Yes Diet: regular caffeine: No during the past year weight has: decreased > 10 lbs Dental Care, Regularly: Yes Physical Activity Frequency: Does not Exercise Seatbelt Use: always Sunscreen Use: Yes Do you think of yourself as: straight/heterosexual Gender Identity: Male Assistive Devices: Glasses Review of Systems A total of 10 systems reviewed and were otherwise negative Physical Exam Vital Signs Vital Signs - 24 hr 09/22/23 00:07 09/22/23 00:18 09/22/23 01:15 Temperature 36.5 C Temperature Source Temporal Artery Scan Pulse Rate 96 H 82 77 Pulse Rhythm Regular Respiratory Rate 19 16 Respiratory Effort / Characteristics Non-Labored Spontaneous Respiratory Depth Normal Blood Pressure 134/85 Blood Pressure Mean 101 Pulse Oximetry 99 99 Oxygen Delivery Method Room Air Room Air Sepsis Recent Fever Within 48 Hours No Sepsis New/Unexplained Change in Mental Status N/A Sepsis Action Taken by Nursing No Action Required VITALS: Vitals are noted on the nurse's note and reviewed by myself. Vital signs stable. GENERAL: Elderly male with present, in no acute distress, nondiaphoretic, well-developed well-nourished. SKIN: Capillary reflex less than 2 seconds. HEENT: Normocephalic. PERRLA. EOMI. Nares patent. Mucous membranes moist. Neck is supple without nuchal rigidity. HEART: Irregular irregular LUNGS: Clear to auscultation bilaterally without wheezes, rales or rhonchi. No retractions or accessory muscle use. ABDOMEN: Positive bowel sounds x 4. Normal tympanic percussion. Soft, extremely tender to palpation periumbilical with hernias present unable to reduce, Eckert sign negative. No guarding or rebound tenderness. no CVA tenderness MUSCULOSKELETAL: No gross musculoskeletal defects. NEURO: Patient was alert and oriented to person place and time. No focal neurological deficits. Course Administered Medications Lactated Ringer's (Lr) 1,000 mls @ 80 mls/hr IV .[id number] ROSE Stop: 09/23/23 03:47 Last Admin: 09/22/23 03:06 Dose: 80 mls/hr Documented By: BHAVYA Morphine Sulfate (Morphine Sulfate 4 Mg/Ml 1 Ml Carp\Vial) 4 mg IV Q3H PRN PRN Reason: Severe Pain (Scale 7, 8, 9,10) Stop: 10/06/23 02:04 Last Admin: 09/22/23 03:08 Dose: 4 mg Documented By: LESLIE Ondansetron HCl (Ondansetron Inj 2 Mg/Ml 2 Ml Vial) 4 mg IV Q6H PRN PRN Reason: NAUSEA/VOMITING Stop: 10/22/23 02:47 Last Admin: 09/22/23 03:08 Dose: 4 mg Documented By: LESLIE Discontinued Medications Fentanyl Citrate (Fentanyl Citrate Pf 100 Mcg/2 Ml Vial) 50 mcg IV Q15M PRN PRN Reason: Pain Stop: 10/06/23 00:17 Last Admin: 09/22/23 02:03 Dose: 50 mcg Documented By: Admin: 09/22/23 01:31 Dose: 50 mcg Documented By: Admin: 09/22/23 00:30 Dose: 50 mcg Documented By: FAUZIA Famotidine (Pepcid 20mg Iv Push) 20 mg in 5 mls @ 2.5 mls/min IV NOW STA Stop: 09/22/23 00:19 Last Admin: 09/22/23 00:30 Dose: 2.5 mls/min Documented By: FAUZIA Pantoprazole Sodium 40 mg/ (Syringe) 10 mls @ 5 mls/min IV NOW ONE Stop: 09/22/23 00:19 Last Admin: 09/22/23 00:35 Dose: 5 mls/min Documented By: FAUZIA Piperacillin Sod/Tazobactam Sod (Zosyn) 4.5 gm in 100 mls @ 200 mls/hr IV NOW ONE Stop: 09/22/23 01:55 Last Infusion: 09/22/23 02:35 Dose: Infused Documented By: Admin: 09/22/23 02:00 Dose: 200 mls/hr Documented By: FAUZIA Ioversol (Optiray 320 100ml) 100 ml IV ONCE ONE Stop: 09/22/23 00:49 Last Admin: 09/22/23 00:49 Dose: 93 ml Documented By: RAQUEL Ondansetron HCl (Ondansetron Inj 2 Mg/Ml 2 Ml Vial) 4 mg IV NOW STA Stop: 09/22/23 00:19 Last Admin: 09/22/23 00:29 Dose: 4 mg Documented By: FAUZIA Medical Decision Making Medical Records Attestation: I reviewed the patient's medical records. Home Medications Current Medication List: was personally reviewed by me Laboratory Data Attestation: I reviewed the patient's lab results. 09/22/23 00:20 09/22/23 00:20 Lab Results 09/22/23 09/22/23 Range/Units 00:20 00:27 WBC 9.13 (4.8-10.8) K/ul RBC 4.16 L (4.70-6.10) M/uL Hgb 13.7 L (14.0-18.0) g/dl POC Hgb 13.6 L (14.0-18.0) g/dl Hct 39.5 L (42.0-52.0) % POC Hct 40 L (42-52) % MCV 95.0 (80.0-100.0) fL MCH 32.9 (25.0-34.0) pg MCHC 34.7 (32.0-36.0) g/dL RDW Std Deviation 42.5 (36.4-46.3) fL RDW Coeff of Bart 12.1 (11.5-14.5) % Plt Count 163 (130-400) K/uL MPV 11.3 (9.4-12.4) fL Immature Gran % (Auto) 0.2 % Neut % (Auto) 73.7 % Lymph % (Auto) 15.7 % Th[place]morton % (Auto) 8.5 % Eos % (Auto) 1.5 % Baso % (Auto) 0.4 % Neut # (Auto) 6.72 H (1.40-6.50) K/uL Lymph # (Auto) 1.43 (1.20-3.40) K/uL Throckmorton # (Auto) 0.78 H (0.11-0.59) K/uL Eos # (Auto) 0.14 (0.00-0.50) K/uL Baso # (Auto) 0.04 (0.00-0.20) K/uL Immature Gran # (Auto) 0.02 (0.01-0.20) K/uL POC Sodium 141 (135-144) mmol/L Sodium 141 (136-145) mmol/L POC Potassium 4.1 (3.3-5.0) mmol/L Potassium 4.1 (3.5-5.1) mmol/L POC Chloride 104 (101-112) mmol/L Chloride 103 (98-107) mmol/L Carbon Dioxide 30 (21-32) mmol/L POC Total CO2 27 (24-31) mmol/L Anion Gap 8 (3-11) POC Anion Gap 16.0 (16-25) mmol/L POC BUN 35 H (7-18) mg/dl BUN 37 H (6-23) mg/dl Creatinine 1.27 (0.6-1.4) mg/dl POC Creatinine 1.3 (0.6-1.3) mg/dl Est Cr Clr Drug Dosing 55.8 ml/min Est GFR ( Amer) 63.6 ml/min Est GFR (Non-Af Amer) 54.9 ml/min BUN/Creatinine Ratio 29.1 H (10-20) Glucose 157 H (70-99(Fasting)) mg/dl POC Glucose (other) 157 H (70-99) mg/dl Lactate 1.8 (0.4-2.0) mmol/L Calcium 10.0 (8.6-10.3) mg/dl POC Ioniz Calcium Ben 1.19 (1.12-1.32) mmol/l Magnesium 1.8 (1.7-2.4) mg/dl Total Bilirubin 0.9 (0.2-1.0) mg/dl AST 21 (13-39) U/L ALT 18 (7-52) U/L Alkaline Phosphatase 59 (34-104) U/L Troponin I High Sens 15.8 (0-20) pg/ml Total Protein 7.4 (6.0-8.3) gm/dl Albumin 4.5 (3.4-5.0) gm/dl Globulin 2.9 (2.5-4.0) gm/dl Albumin/Globulin Ratio 1.6 (0.9-2) Lipase 17 (11-82) U/L Imaging Data Attestation: I personally reviewed and interpreted this imaging study as follows: Radiologist's Impression: Abdomen/Pelvis CT 09/22/23 00:18 CR Exam(s): CT ABDOMEN + PELVIS With Contrast IV Amt: 93 ml optiray 320 EXAM: CT Abdomen and Pelvis With Intravenous Contrast CLINICAL HISTORY: Reason for exam: severe pain, n/v, hernia, ? strangulated/sbo. TECHNIQUE: Axial computed tomography images of the abdomen and pelvis with intravenous contrast. CTDI is 28.14 mGy and DLP is 1415.4 mGy-cm. Automated exposure control was utilized for the study. A dose lowering technique was utilized adhering to the principles of ALARA. CONTRAST: Patient received 93 ml optiray 320 of IV contrast COMPARISON: 09/03/22 FINDINGS: Lung bases: Unremarkable. No mass. No consolidation. ABDOMEN: Liver: Unremarkable. No mass. Gallbladder and bile ducts: Cholecystectomy. No ductal dilation. Pancreas: Unremarkable. No mass. No ductal dilation. Spleen: Unremarkable. No splenomegaly. Adrenals: Unremarkable. No mass. Kidneys and ureters: Symmetric renal enhancement. No hydronephrosis. Small simple left kidney upper pole cyst; no follow-up indicated. Stomach and bowel: Dilated, fluid-filled loop of small bowel incarcerated within an umbilical hernia. Ascites within the hernia sac. High-grade upstream small bowel obstruction with dilated loops measuring up to 4 cm. Diverticulosis without diverticulitis. PELVIS: Appendix: No evidence of appendicitis. Bladder: Unremarkable. No mass. Reproductive: Unremarkable. ABDOMEN and PELVIS: Intraperitoneal space: Mesenteric edema. Trace ascites within the abdomen. No free air. Bones/joints: Degenerative changes of the spine and left hip. Right total hip arthroplasty. No acute fracture or dislocation. Soft tissues: Umbilical hernia with incarcerated small bowel loop resulting in closed loop small bowel obstruction. Fat-containing left inguinal hernia. Vasculature: Coronary artery atherosclerosis. Aortoiliac atherosclerosis without aortic aneurysm. 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 Lymph nodes: Unremarkable. No enlarged lymph nodes. IMPRESSION: 1. Dilated, fluid-filled loop of small bowel incarcerated within an umbilical hernia. Ascites within the hernia sac. High-grade upstream small bowel obstruction with dilated loops measuring up to 4 cm. Appearance technically represent a closed loop obstruction. Surgical consultation recommended. 2. 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 Communications: Verify Receipt Electronically signed by: Sean Chakraborty M.D. 09/22/23 01:08 AM [facility] Narrative Prior records/ancillary studies reviewed. Triage Nursing notes reviewed. Additional history obtained from family. The patient's history was concerning for abdominal pain. Differential diagnosis: Etiologies such as strangulated hernia, incarcerated hernia, appendicitis, diverticulitis, PUD, biliary pathology, UTI, pancreatitis, obstruction, mesenteric ischemia, aortic pathology, infections, inflammatory bowel disease, renal colic, as well as others were entertained. Physical examination findings: As above. ER treatment provided: An order was placed for continuous cardiac monitoring. The monitor shows a rate of 60-100 with a sinus rhythm per my Independent interpretation. Fentanyl, Zofran, Pepcid and Protonix were ordered Zosyn was ordered I did attempt to reduce the hernia at bedside and was unsuccessful. On reassessment the patient felt better. Diagnostics interpreted by me: ECG: Ordered for upper abdominal pain EKG: Irregularly irregular with no ST changes. Impression rate controlled A-fib independently interpreted by myself The labs Independently Interpreted by myself revealed no worrisome leukocytosis, mild anemia Lactic 1.8 and this was [place] texted by lab as apparently labs were not crossing over Imaging studies: CT as above Consultation: A consultation was placed with the GS, Dr Carrasco. The case was discussed and diagnostics were reviewed. He recommends medical admission and will evaluate the patient in the morning. Medicine was consulted and case was discussed. Patient will be admitted to the medical service. Exam and history seem consistent with bowel obstruction possibly secondary to closed-loop hernia. Surgery was consulted and the case was discussed. They recommend medical admission and will evaluate the patient in the morning. Medicine was consulted and the case was discussed. Patient was admitted to the medical service. Patient was reassessed multiple times. His pain was managed with fentanyl. He was medicated as above. He is agreeable to treatment plan of admission. Lactic was negative. No worrisome leukocytosis. By the evaluation outlined above emergent etiologies such as appendicitis, diverticulitis, PUD, biliary pathology, UTI, pancreatitis, mesenteric ischemia, aortic pathology, infections, inflammatory bowel disease, renal colic, as well as others were deemed relatively unlikely. The pt informed about the findings as listed above. All questions were answered and pleased with the treatment. The chart was completed utilizing [employer] Speech voice recognition software. Grammatical errors, random word insertions, pronoun errors, and incomplete sentences are an occassional consequence of this system due to software limitations, ambient noise, and hardware issues. Any formal questions or concerns about the content, text, or information contained within the body of this dictation should be directly addressed to the physician assistant professor in family studies for clarification. Attending Attestation: I Roly Rossi MD I have reviewed the advanced practitioner's documentation and agree with the plan of care. I accept the responsibility for the associated risk of managing the patient. I performed a substantive portion of the visit including involvement in all aspects of medical decision making. CT results and blood work was reviewed with concern for umbilical hernia with small bowel obstruction and incarceration. General surgery has been made aware of the patient and his condition. Patient being admitted for further surgical consultation and care with assistance of the medical service. Impression & Plan Small bowel obstruction, Hernia Discharge Plan Visit Data Chief Complaint: Abdominal Pain Stated Complaint: SEVERE ABDOMINAL PAIN,HERNIA THROUGH STOMACH ED Provider: Roly Rossi ED Midlevel Provider: Lynne Rainey Discharge Problem: Small bowel obstruction, Hernia Patient Disposition: Admitted As Inpatient Condition: Fair Discharge Instructions Interventions: ED Discharge Assessment Last Done: 09/22/23 02:29
[2023-09-22] MEDS: ONDANSETRON INJ 2 MG/ML 2 ML VIAL IV STA (00:29)
[2023-09-22] MEDS: FAMOTIDINE 20MG IV PUSH 20 MG/5 ML SYR IV STA (00:30)
[2023-09-22] MEDS: fentaNYL citrate PF 100 MCG/2 ML VIAL IV PRN (00:30)
[2023-09-22] MEDS: PANTOprazole 40 MG in SYRINGE 0 ML IV ONE (00:35)
[2023-09-22] MEDS: OPTIRAY 320 100ml IV ONE (00:49)
[2023-09-22 00:50] LABS: Basophils # (auto) 0.04 K/uL (0.00-0.20); Basophils % (auto) 0.4 %; Eosinophils # (auto) 0.14 K/uL (0.00-0.50); Eosinophils % (auto) 1.5 %; Hematocrit (blood only) 39.5 % (42.0-52.0); Hemoglobin 13.7 g/dl (14.0-18.0); Immature Granulocytes # (auto) 0.02 K/uL (0.01-0.20); Immature Granulocytes % (auto) 0.2 %; Lymphocytes # (auto) 1.43 K/uL (1.20-3.40); Lymphocytes % (auto) 15.7 %; Mean Corpuscular Hemoglobin 32.9 pg (25.0-34.0); Mean Corpuscular Hgb Conc 34.7 g/dL (32.0-36.0); Mean Platelet Volume 11.3 fL (9.4-12.4); Monocytes # (auto) 0.78 K/uL (0.11-0.59); Monocytes % (auto) 8.5 %; Neutrophils # (auto) 6.72 K/uL (1.40-6.50); Neutrophils % (auto) 73.7 %; Platelet Count 163 K/uL (130-400); RDW Coefficient of Variation 12.1 % (11.5-14.5); RDW Standard Deviation 42.5 fL (36.4-46.3); Red Blood Count 4.16 M/uL (4.70-6.10); White Blood Count 9.13 K/ul (4.8-10.8)
[2023-09-22 01:04] LABS: Albumin Globulin Ratio 1.6 (0.9-2); Albumin Level 4.5 gm/dl (3.4-5.0); BUN Creatinine Ratio 29.1 (10-20); Bilirubin,Total 0.9 mg/dl (0.2-1.0); Creatinine Clr Calc Pharmacy 55.8 ml/min; Est GFR (African American) 63.6 ml/min; Est GFR (Non-African American) 54.9 ml/min; Globulin 2.9 gm/dl (2.5-4.0); Magnesium 1.8 mg/dl (1.7-2.4); Potassium 4.1 mmol/L (3.5-5.1); Total Protein 7.4 gm/dl (6.0-8.3)
[2023-09-22 01:08] LABS: iSTAT Creatinine 1.3 mg/dl (0.6-1.3); iSTAT Hemoglobin 13.6 g/dl (14.0-18.0); iSTAT Ionized Calcium 1.19 mmol/l (1.12-1.32); iSTAT Potassium 4.1 mmol/L (3.3-5.0)
--- NOTE | 2023-09-22 01:09 | CT Scan Report ---
Exam(s): CT ABDOMEN + PELVIS With Contrast IV Amt: 93 ml optiray 320 EXAM: CT Abdomen and Pelvis With Intravenous Contrast CLINICAL HISTORY: Reason for exam: severe pain, n/v, hernia, ? strangulated/sbo. TECHNIQUE: Axial computed tomography images of the abdomen and pelvis with intravenous contrast. CTDI is 28.14 mGy and DLP is 1415.4 mGy-cm. Automated exposure control was utilized for the study. A dose lowering technique was utilized adhering to the principles of ALARA. CONTRAST: Patient received 93 ml optiray 320 of IV contrast COMPARISON: 09/03/22 FINDINGS: Lung bases: Unremarkable. No mass. No consolidation. ABDOMEN: Liver: Unremarkable. No mass. Gallbladder and bile ducts: Cholecystectomy. No ductal dilation. Pancreas: Unremarkable. No mass. No ductal dilation. Spleen: Unremarkable. No splenomegaly. Adrenals: Unremarkable. No mass. Kidneys and ureters: Symmetric renal enhancement. No hydronephrosis. Small simple left kidney upper pole cyst; no follow-up indicated. Stomach and bowel: Dilated, fluid-filled loop of small bowel incarcerated within an umbilical hernia. Ascites within the hernia sac. High-grade upstream small bowel obstruction with dilated loops measuring up to 4 cm. Diverticulosis without diverticulitis. PELVIS: Appendix: No evidence of appendicitis. Bladder: Unremarkable. No mass. Reproductive: Unremarkable. ABDOMEN and PELVIS: Intraperitoneal space: Mesenteric edema. Trace ascites within the abdomen. No free air. Bones/joints: Degenerative changes of the spine and left hip. Right total hip arthroplasty. No acute fracture or dislocation. Soft tissues: Umbilical hernia with incarcerated small bowel loop resulting in closed loop small bowel obstruction. Fat-containing left inguinal hernia. Vasculature: Coronary artery atherosclerosis. Aortoiliac atherosclerosis without aortic aneurysm. 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 Lymph nodes: Unremarkable. No enlarged lymph nodes. IMPRESSION: 1. Dilated, fluid-filled loop of small bowel incarcerated within an umbilical hernia. Ascites within the hernia sac. High-grade upstream small bowel obstruction with dilated loops measuring up to 4 cm. Appearance technically represent a closed loop obstruction. Surgical consultation recommended. 2. 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 Communications: Verify Receipt Electronically signed by: Sean Chakraborty M.D. 09/22/23 01:08 AM
[2023-09-22 01:10] LABS: Troponin I High Sensitivity 15.8 pg/ml (0-20)
[2023-09-22] MEDS: PIPERACILLIN/TAZOBACTAM 4.5 GM/100 ML BAG IV ONE (02:00)
--- NOTE | 2023-09-22 02:04 | History & Physical Report ---
Date of Service September 22, 2023 Assessment & Plan (1) Strangulated hernia of abdominal wall: (2) Small bowel obstruction: (3) Permanent atrial fibrillation: (4) Sleep apnea: (5) Atrial fibrillation with RVR: (6) Ischemic cardiomyopathy: (7) CAD (coronary artery disease): (8) Chronic systolic (congestive) heart failure: (9) Anticoagulant long-term use: (10) Type 2 diabetes mellitus: (11) Hypertension: Plan Incarcerated umbilical hernia/ascites within the hernia sac/high-grade upstream SBO/closed-loop obstruction- NPO Zosyn 4.5 g IV every 8 hours Zofran 4 mg IV every 6 hours as needed LR at 80 mL/h x 2 L Tylenol 1 g IV every 8 hours as needed for mild pain or fever Morphine sulfate 2 mg IV every 3 hours as needed for moderate pain Morphine sulfate 4 mg IV every 3 hours as needed for severe pain Pantoprazole 40 mg IV daily General surgery on-call is aware the patient, and will see the patient in the a.m. Permanent atrial fibrillation/chronic systolic CHF- Hold apixaban, furosemide, metoprolol succinate, Entresto, and spironolactone Last apixaban dose was 6:00 this evening Start heparin drip low-dose without bolus per protocol at 6:00 morning of 09/21 Lopressor 2.5 mg IV every 4 hours, hold for systolic blood pressure Diabetes mellitus- Hold Toujeo and Victoza Placed on Accu-Cheks with NovoLog SSI History of Present Illness Chief Complaint: The patient presents to the emergency department with the acute onset of severe abdominal pain, nausea and vomiting early this afternoon. He denies any recent travels or sick exposures. He denies any questionable food intake. His reports that he has not been able to eat or drink anything for most of the day Primary Care Provider: Matteo Young MD The patient is a 77-year-old male with a past medical history putting diabetic peripheral neuropathy, permanent atrial fibrillation with history of RVR on chronic anticoagulation, cerebral vascular malformation, 4th nerve palsy, ischemic cardiomyopathy, hypercholesterolemia, CAD, chronic systolic CHF, status post CABG, status post ligation of left atrial appendage, hypertension, and diabetes mellitus. The patient presents to the emergency department with acute onset of severe abdominal pain, nausea and vomiting, and inability to hold food or liquids down. Allergies Allergy/AdvReac Type Severity Reaction Status Date / Time spironolactone Allergy Severe Extreme Verified 09/22/23 02:46 diarrhea pyridostigmine Allergy Mild Vomiting Verified 09/22/23 02:46 Home Medications Medication Instructions Recorded Confirmed Type triamcinolone acetonide 0.1 % 1 applic topical DAILY PRN ud 03/04/22 09/22/23 History topical ointment multivitamin 1 tab PO QDL 04/23/22 09/22/23 History insulin glargine U-300 conc 300 0 unit subcut DAILY 09/03/22 09/22/23 History unit/mL (1.5 mL) subcutaneous pen ([employer] SoloStar U-300 Insulin) apixaban 5 mg tablet (Eliquis) 5 mg PO BID #180 tabs 12/30/22 09/22/23 Rx atorvastatin 40 mg tablet 40 mg PO QDL #90 tabs 01/07/23 09/22/23 Rx sildenafil 100 mg tablet 100 mg PO DAILY PRN sexual 01/21/23 09/22/23 Rx activity #10 tabs sacubitril 49 mg-valsartan 51 mg 1 tab PO BID #180 tabs 04/28/23 09/22/23 Rx tablet (Entresto) spironolactone 25 mg tablet 12.5 mg (1/2 x 25 mg) PO DAILY #30 05/04/23 09/22/23 Rx tabs metoprolol succinate 100 mg 100 mg PO BID #180 tabs 05/25/23 09/22/23 Rx tablet,extended release 24 hr (Toprol XL) furosemide 20 mg tablet (Lasix) 20 mg PO DAILY 09/22/23 09/22/23 History liraglutide 0.6 mg/0.1 mL (18 mg/3 1.2 mg subcut DAILY 09/22/23 09/22/23 History mL) subcutaneous pen injector (Victoza 2-Fady) Past Med/Surg History Problem List (Updated 09/22/23 @ 04:40 by Ren Jasso MD) Strangulated hernia of abdominal wall Hernia (Acute) Small bowel obstruction (Acute) Vitamin D deficiency Diabetic peripheral neuropathy Permanent atrial fibrillation with rapid ventricular response Permanent atrial fibrillation Sleep apnea CPAP-compliant Nausea and vomiting Gallstones (Acute) Acute upper abdominal pain (Acute) Leg edema, right S/P total right hip arthroplasty H/O total hip arthroplasty History of total knee arthroplasty Atrial fibrillation with RVR Postoperative hypotension Cerebral vascular malformation Fourth nerve palsy Ischemic cardiomyopathy EF 30-35% Hypercholesterolemia Anemia, mild Chronic venous insufficiency (Chronic) Lymphedema (Chronic) Lower extremity edema CAD (coronary artery disease) Chronic systolic (congestive) heart failure Surgical wound dehiscence (Acute) Anticoagulant long-term use Status post coronary artery bypass graft Status post ligation of left atrial appendage Hypertension controlled, stable per pt Type 2 diabetes mellitus IDDM Medical History Nephrolithiasis Asthmatic bronchitis Pulmonary hypertension mild, PASP 45-50 mmHg GERD (gastroesophageal reflux disease) rare, stable per pt History of blood transfusion 2021 Eye problem Pt c/o ongoing issue with his vision. states he's been worked up for myesthenia gravis & 4th nerve palsy but no official diagnosis Venous stasis ulcer BLLE (hx) - [place] [facility] in past 2021 CAD (coronary artery disease) s/p CABG x3 with IMMANUEL clip (04/2021) Follows with Dr. Hagan Venous stasis ulcers of both lower extremities Diabetic retinopathy History of rectal abscess > 20 yrs ago Surgical History History of cardiac catheterization 02/2021 [place] > CABG History of coronary artery bypass graft x 3 04/22/2021 History of incision and drainage rectal abscess S/P tonsillectomy Family History Father Prostate cancer Myocardial infarction Coronary arteriosclerosis Other Family history non-contributory No family history of adverse response to anesthesia Denies family history of Colon cancer Ovarian cancer Breast cancer Social History Smoking Status: Never smoker Second Hand Exposure: Yes (as a child); Do You Dip or Chew Tobacco: No; Hx Alcohol Use: No Hx Substance Use: No Preferred Language: Gambian Communication Ability: Effective Visual Impairment: Diminished Hearing Ability: Normal Plasma Processor Required: No Beliefs That Will Affect Care: None marital status: Current Living Situation: Spouse Current Living Situation Comment: Lives at home with current occupational status: retired How many Children do You have: 1 Other Information That Helps Us Care for You: No Feels Safe at Home: Yes Safety Concerns: Feels Safe At This Time Childhood Exposure to Second-Hand Smoke: Yes Diet: regular caffeine: No during the past year weight has: decreased > 10 lbs Dental Care, Regularly: Yes Physical Activity Frequency: Does not Exercise Seatbelt Use: always Sunscreen Use: Yes Do you think of yourself as: straight/heterosexual Gender Identity: Male Assistive Devices: Glasses Review of Systems Review of Systems: The patient denies chest pain, palpitations, shortness of breath, dyspnea on exertion, cough, lower extremity swelling, sore throat, fevers, chills, sweats, blood in urine or stool, dysuria, urinary frequency or urgency, lightheadedness, dizziness, headache, memory loss, loss of consciousness, rash, abnormal bruising or bleeding, imbalance, focal weakness, numbness or tingling in arms or legs, generalized arthralgias or myalgias, back or neck pain, or night sweats. The review of systems is otherwise negative other than for that already noted above, and at least 10 systems have been reviewed. Physical Exam Physical Exam: The patient is awake, alert and oriented 3, well developed and well nourished, normocephalic and atraumatic, lying in bed and in mild to moderate distress secondary to abdominal pain HEENT--PERRL, EOMI, mucous membranes and oropharynx mildly dry. Neck--supple. No JVD. No bruits. Thyroid normal, trachea midline, no adenopathy. Heart--normal S1 and S2. No murmurs, rubs or gallops. Lungs--clear bilaterally, no respiratory distress, no accessory muscle use. Abdomen--decreased bowel sounds. Tender palpable abdominal hernia Extremities--No edema. Dermatologic--normal skin turgor, normal color, no abnormal lymph nodes, no rash. Neurologic--cranial nerves II through XII grossly intact. Rheumatologic--normal range of motion. Psychiatric--normal affect. Results & Data Results & Data Vital Signs (Past 12 Hours) Vital Signs Temp Pulse Resp BP Pulse Ox O2 Del Method 09/22/23 01:15 77 09/22/23 00:18 82 16 99 Room Air 09/22/23 00:07 36.5 C 96 H 19 134/85 99 Room Air Laboratory Results Laboratory Results WBC 9.13 K/ul (4.8-10.8) 09/22/23 00:20 RBC 4.16 M/uL (4.70-6.10) L 09/22/23 00:20 Hgb 13.7 g/dl (14.0-18.0) L 09/22/23 00:20 POC Hgb 13.6 g/dl (14.0-18.0) L 09/22/23 00:27 Hct 39.5 % (42.0-52.0) L 09/22/23 00:20 POC Hct 40 % (42-52) L 09/22/23 00:27 MCV 95.0 fL (80.0-100.0) 09/22/23 00:20 MCH 32.9 pg (25.0-34.0) 09/22/23 00:20 MCHC 34.7 g/dL (32.0-36.0) 09/22/23 00:20 RDW Std Deviation 42.5 fL (36.4-46.3) 09/22/23 00:20 RDW Coeff of Bart 12.1 % (11.5-14.5) 09/22/23 00:20 Plt Count 163 K/uL (130-400) 09/22/23 00:20 MPV 11.3 fL (9.4-12.4) 09/22/23 00:20 Immature Gran % (Auto) 0.2 % 09/22/23 00:20 Neut % (Auto) 73.7 % 09/22/23 00:20 Lymph % (Auto) 15.7 % 09/22/23 00:20 Coleman % (Auto) 8.5 % 09/22/23 00:20 Eos % (Auto) 1.5 % 09/22/23 00:20 Baso % (Auto) 0.4 % 09/22/23 00:20 Neut # (Auto) 6.72 K/uL (1.40-6.50) H 09/22/23 00:20 Lymph # (Auto) 1.43 K/uL (1.20-3.40) 09/22/23 00:20 Coleman # (Auto) 0.78 K/uL (0.11-0.59) H 09/22/23 00:20 Eos # (Auto) 0.14 K/uL (0.00-0.50) 09/22/23 00:20 Baso # (Auto) 0.04 K/uL (0.00-0.20) 09/22/23 00:20 Immature Gran # (Auto) 0.02 K/uL (0.01-0.20) 09/22/23 00:20 POC Sodium 141 mmol/L (135-144) 09/22/23 00:27 Sodium 141 mmol/L (136-145) 09/22/23 00:20 POC Potassium 4.1 mmol/L (3.3-5.0) 09/22/23 00:27 Potassium 4.1 mmol/L (3.5-5.1) 09/22/23 00:20 POC Chloride 104 mmol/L (101-112) 09/22/23 00:27 Chloride 103 mmol/L (98-107) 09/22/23 00:20 Carbon Dioxide 30 mmol/L (21-32) 09/22/23 00:20 POC Total CO2 27 mmol/L (24-31) 09/22/23 00:27 Anion Gap 8 (3-11) 09/22/23 00:20 POC Anion Gap 16.0 mmol/L (16-25) 09/22/23 00:27 POC BUN 35 mg/dl (7-18) H 09/22/23 00:27 BUN 37 mg/dl (6-23) H 09/22/23 00:20 Creatinine 1.27 mg/dl (0.6-1.4) 09/22/23 00:20 POC Creatinine 1.3 mg/dl (0.6-1.3) 09/22/23 00:27 Est Cr Clr Drug Dosing 55.8 ml/min 09/22/23 00:20 Est GFR ( Amer) 63.6 ml/min 09/22/23 00:20 Est GFR (Non-Af Amer) 54.9 ml/min 09/22/23 00:20 BUN/Creatinine Ratio 29.1 (10-20) H 09/22/23 00:20 Glucose 157 mg/dl (70-99(Fasting)) H 09/22/23 00:20 POC Glucose 159 mg/dl (70-99) H 09/22/23 02:55 POC Glucose (other) 157 mg/dl (70-99) H 09/22/23 00:27 Lactate 1.8 mmol/L (0.4-2.0) 09/22/23 00:20 Calcium 10.0 mg/dl (8.6-10.3) 09/22/23 00:20 POC Ioniz Calcium Ben 1.19 mmol/l (1.12-1.32) 09/22/23 00:27 Magnesium 1.8 mg/dl (1.7-2.4) 09/22/23 00:20 Total Bilirubin 0.9 mg/dl (0.2-1.0) 09/22/23 00:20 AST 21 U/L (13-39) 09/22/23 00:20 ALT 18 U/L (7-52) 09/22/23 00:20 Alkaline Phosphatase 59 U/L (34-104) 09/22/23 00:20 Troponin I High Sens 15.8 pg/ml (0-20) 09/22/23 00:20 Total Protein 7.4 gm/dl (6.0-8.3) 09/22/23 00:20 Albumin 4.5 gm/dl (3.4-5.0) 09/22/23 00:20 Globulin 2.9 gm/dl (2.5-4.0) 09/22/23 00:20 Albumin/Globulin Ratio 1.6 (0.9-2) 09/22/23 00:20 Lipase 17 U/L (11-82) 09/22/23 00:20 Impressions Abdomen/Pelvis CT 09/22/23 00:18 CR Exam(s): CT ABDOMEN + PELVIS With Contrast IV Amt: 93 ml optiray 320 EXAM: CT Abdomen and Pelvis With Intravenous Contrast CLINICAL HISTORY: Reason for exam: severe pain, n/v, hernia, ? strangulated/sbo. TECHNIQUE: Axial computed tomography images of the abdomen and pelvis with intravenous contrast. CTDI is 28.14 mGy and DLP is 1415.4 mGy-cm. Automated exposure control was utilized for the study. A dose lowering technique was utilized adhering to the principles of ALARA. CONTRAST: Patient received 93 ml optiray 320 of IV contrast COMPARISON: 09/03/22 FINDINGS: Lung bases: Unremarkable. No mass. No consolidation. ABDOMEN: Liver: Unremarkable. No mass. Gallbladder and bile ducts: Cholecystectomy. No ductal dilation. Pancreas: Unremarkable. No mass. No ductal dilation. Spleen: Unremarkable. No splenomegaly. Adrenals: Unremarkable. No mass. Kidneys and ureters: Symmetric renal enhancement. No hydronephrosis. Small simple left kidney upper pole cyst; no follow-up indicated. Stomach and bowel: Dilated, fluid-filled loop of small bowel incarcerated within an umbilical hernia. Ascites within the hernia sac. High-grade upstream small bowel obstruction with dilated loops measuring up to 4 cm. Diverticulosis without diverticulitis. PELVIS: Appendix: No evidence of appendicitis. Bladder: Unremarkable. No mass. Reproductive: Unremarkable. ABDOMEN and PELVIS: Intraperitoneal space: Mesenteric edema. Trace ascites within the abdomen. No free air. Bones/joints: Degenerative changes of the spine and left hip. Right total hip arthroplasty. No acute fracture or dislocation. Soft tissues: Umbilical hernia with incarcerated small bowel loop resulting in closed loop small bowel obstruction. Fat-containing left inguinal hernia. Vasculature: Coronary artery atherosclerosis. Aortoiliac atherosclerosis without aortic aneurysm. 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 Lymph nodes: Unremarkable. No enlarged lymph nodes. IMPRESSION: 1. Dilated, fluid-filled loop of small bowel incarcerated within an umbilical hernia. Ascites within the hernia sac. High-grade upstream small bowel obstruction with dilated loops measuring up to 4 cm. Appearance technically represent a closed loop obstruction. Surgical consultation recommended. 2. 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 Communications: Verify Receipt Electronically signed by: Sean Chakraborty M.D. 09/22/23 01:08 AM Code Status & VTE Plan Code Status full code VTE Prophylaxis Plan VTE Prophylaxis will be ordered: Yes PG Care Time/CCT Total # of Minutes Spent Total Time Spent with Patient: Total time spent is greater than 50% in coordination of care (as documented) at patient's floor/unit and/or counseling patient: Coding Level of Care Code 46341 INT INP/OBS CARE 3/75MIN Diagnoses Strangulated hernia of abdominal wall K43.6 Small bowel obstruction K56.609 Permanent atrial fibrillation I48.21 Sleep apnea G47.30 Atrial fibrillation with RVR I48.91 Ischemic cardiomyopathy I25.5 CAD (coronary artery disease) I25.10 Chronic systolic (congestive) heart failure I50.22 Anticoagulant long-term use Z79.01 Type 2 diabetes mellitus E11.9 Hypertension I10
[2023-09-22] MEDS ORDERED: MoRPHine SULFATE 2 MG/ML CARP IV PRN (02:05)
[2023-09-22] MEDS ORDERED: DEXTROSE 50% 50 ML SYRINGE IV PRN (02:48)
[2023-09-22] MEDS ORDERED: CARBOHYDRATES FOR HYPOGLYCEMIA PO PRN (02:48)
[2023-09-22] MEDS ORDERED: GLUCOSE 40% GEL 15 GM TUBE PO PRN (02:48)
[2023-09-22] MEDS ORDERED: GLUCAGON FOR INJ 1 MG VIAL SQ PRN (02:48)
[2023-09-22] MEDS ORDERED: GLUCOSE 10 TAB/TUBE PO PRN (02:48)
[2023-09-22] MEDS: LACTATED RINGER'S 1,000 ML IV SCH ×2 (03:06→12:54)
[2023-09-22] MEDS: MoRPHine SULFATE 4 MG/ML 1 ML CARP\\VIAL IV PRN (03:08)
[2023-09-22] MEDS: ONDANSETRON INJ 2 MG/ML 2 ML VIAL IV PRN (03:08)
[2023-09-22] MEDS: METOPROLOL TARTRATE 1 MG/ML VIAL IV SCH (04:43)
[2023-09-22] MEDS: PROCHLORPERAZINE 5 MG in SYRINGE 4 ML IV ONE (04:43)
[2023-09-22] MEDS: ACETAMINOPHEN 1000 MG/100 ML IV IV PRN (04:44)
[2023-09-22 06:26] LABS: Basophils # (auto) 0.03 K/uL (0.00-0.20); Basophils % (auto) 0.3 %; Eosinophils # (auto) 0.03 K/uL (0.00-0.50); Eosinophils % (auto) 0.3 %; Hemoglobin 11.6 g/dl (14.0-18.0); Immature Granulocytes # (auto) 0.03 K/uL (0.01-0.20); Immature Granulocytes % (auto) 0.3 %; Lymphocytes # (auto) 0.48 K/uL (1.20-3.40); Lymphocytes % (auto) 5.5 %; Mean Corpuscular Hemoglobin 33.3 pg (25.0-34.0); Mean Corpuscular Hgb Conc 34.1 g/dL (32.0-36.0); Mean Corpuscular Volume 97.7 fL (80.0-100.0); Mean Platelet Volume 11.1 fL (9.4-12.4); Monocytes # (auto) 0.51 K/uL (0.11-0.59); Monocytes % (auto) 5.9 %; Neutrophils # (auto) 7.57 K/uL (1.40-6.50); Neutrophils % (auto) 87.7 %; Platelet Count 118 K/uL (130-400); RDW Coefficient of Variation 12.2 % (11.5-14.5); RDW Standard Deviation 43.7 fL (36.4-46.3); Red Blood Count 3.48 M/uL (4.70-6.10); White Blood Count 8.65 K/ul (4.8-10.8)
[2023-09-22 06:51] LABS: INR 1.1 (0.9-1.1); Prothrombin Time 12.1 Seconds (9.0-12.0)
[2023-09-22 07:02] LABS: Estimated Average Glucose 143 mg/dl; Hemoglobin A1C 6.6 % (4.5-5.6)
[2023-09-22] MEDS: INSULIN ASPART PER UNIT CHARGE SC SCH ×2 (07:38→16:54)
[2023-09-22] MEDS: HEPARIN SODIUM/DEXTROSE 25,000 UNITS/500 ML BAG IV SCH (07:44)
[2023-09-22] MEDS: PIPERACILLIN/TAZOBACTAM 4.5 GM in DEXTROSE 5% MINI-B 100 ML IV SCH (07:44)
[2023-09-22] MEDS: Heparin IV Adult Wt-Based Low-Dose *NO* INITIAL Bolus Protocol IV ONE (07:44)
[2023-09-22] MEDS ORDERED: SUCCINYLCHOLINE 100MG/5ML SYR IV ONE (08:01)
[2023-09-22] MEDS ORDERED: fentaNYL citrate PF 100 MCG/2 ML VIAL ONE ×2 (08:01→10:21)
[2023-09-22] MEDS ORDERED: ROCURONIUM BROMIDE 10 MG/ML 5 ML VIAL IV ONE (08:01)
[2023-09-22] MEDS ORDERED: LIDOCAINE 2% 2 ML VIAL/AMP(20MG/ML) INFIL ONE (08:01)
[2023-09-22] MEDS ORDERED: ONDANSETRON INJ 2 MG/ML 2 ML VIAL ONE (08:01)
[2023-09-22] MEDS ORDERED: MIDAZOLAM HCL 1 MG/ML 2ML VIAL ONE (08:01)
[2023-09-22] MEDS ORDERED: PROPOFOL IV EMULSION 10 MG/ML 20 ML VIAL IV ONE (08:01)
--- NOTE | 2023-09-22 08:27 | Anesthesiology Consultation ---
Date of Service September 22, 2023 Assessment & Plan Chart Review Chart Review: Acceptable Risk for Surgery and Patient NOT seen in Pre Admission Testing Consults Requested none History Surgery Operation Date: 09/22/23 08:00 Proposed Procedures p Incarcerated Umbilical Hernia Repair - Yuriy Carrasco MD Height/Weight Height: 5 ft 8 in Weight: 93.89 kg Allergies Allergy/AdvReac Type Severity Reaction Status Date / Time spironolactone Allergy Severe Extreme Verified 09/22/23 02:46 diarrhea pyridostigmine Allergy Mild Vomiting Verified 09/22/23 02:46 Medications Home Medications Medication Instructions Recorded Confirmed Last Taken triamcinolone acetonide 0.1 % 1 applic topical DAILY PRN ud 03/04/22 09/22/23 Unknown topical ointment multivitamin 1 tab PO QDL 04/23/22 09/22/23 09/02/22 insulin glargine U-300 conc 300 0 unit subcut DAILY 09/03/22 09/22/23 09/21/23 17:00 unit/mL (1.5 mL) subcutaneous pen ([employer] SoloStar U-300 Insulin) apixaban 5 mg tablet (Eliquis) 5 mg PO BID #180 tabs 12/30/22 09/22/23 09/21/23 18:00 atorvastatin 40 mg tablet 40 mg PO QDL #90 tabs 01/07/23 09/22/23 Unknown sildenafil 100 mg tablet 100 mg PO DAILY PRN sexual 01/21/23 09/22/23 Unknown activity #10 tabs sacubitril 49 mg-valsartan 51 mg 1 tab PO BID #180 tabs 04/28/23 09/22/23 09/21/23 18:00 tablet (Entresto) spironolactone 25 mg tablet 12.5 mg (1/2 x 25 mg) PO DAILY #30 05/04/23 09/22/23 Unknown tabs metoprolol succinate 100 mg 100 mg PO BID #180 tabs 05/25/23 09/22/23 Unknown tablet,extended release 24 hr (Toprol XL) furosemide 20 mg tablet (Lasix) 20 mg PO DAILY 09/22/23 09/22/23 Unknown liraglutide 0.6 mg/0.1 mL (18 mg/3 1.2 mg subcut DAILY 09/22/23 09/22/23 Unknown mL) subcutaneous pen injector ([employer] 2-Fady) Active Medications Generic Name Dose Route Start Last Admin Trade Name Freq PRN Reason Stop Dose Admin Acetaminophen 1,000 mg 09/22/23 02:48 09/22/23 04:44 Acetaminophen 1000 Mg/100 Ml Iv IV 09/25/23 02:47 1,000 mg Q8H PRN Administration Pain or Fever Piperacillin Sod/Tazobactam 100 mls @ 25 mls/hr 09/22/23 08:00 09/22/23 08:19 Sod 4.5 gm/ Dextrose IV 10/02/23 07:59 0 mls/hr Q8H ROSE Infusion Protocol Lactated Ringer's 1,000 mls @ 80 mls/hr 09/22/23 02:48 09/22/23 03:06 Lr IV 09/23/23 03:47 80 mls/hr .[id number] ROSE Administration Heparin Sodium/Dextrose 25,000 units in 500 mls @ 19 mls/hr 09/22/23 06:00 09/22/23 08:19 Heparin Sodium/Dextrose IV 10/22/23 05:59 0 units/hr .Q24H ROSE 0 mls/hr Titration Protocol 950 UNITS/HR Insulin Aspart 0 units 09/22/23 06:00 09/22/23 07:38 Insulin Aspart Per Unit Charge SC 10/22/23 05:59 Not Given Q6 ROSE Metoprolol Tartrate 2.5 mg 09/22/23 04:00 09/22/23 07:45 Metoprolol Tartrate 1 Mg/Ml Vial IV 10/22/23 03:59 2.5 mg Q4 ROSE Administration Morphine Sulfate 4 mg 09/22/23 02:05 09/22/23 03:08 Morphine Sulfate 4 Mg/Ml 1 Ml Carp\Vial IV 10/06/23 02:04 4 mg Q3H PRN Administration Severe Pain (Scale 7, 8, 9,10) Ondansetron HCl 4 mg 09/22/23 02:48 09/22/23 03:08 Ondansetron Inj 2 Mg/Ml 2 Ml Vial IV 10/22/23 02:47 4 mg Q6H PRN Administration NAUSEA/VOMITING Past Medical History Medical History Nephrolithiasis Asthmatic bronchitis Pulmonary hypertension mild, PASP 45-50 mmHg GERD (gastroesophageal reflux disease) rare, stable per pt History of blood transfusion 2021 Eye problem Pt c/o ongoing issue with his vision. states he's been worked up for myesthenia gravis & 4th nerve palsy but no official diagnosis Venous stasis ulcer BLLE (hx) - [place] [facility] in past 2021 CAD (coronary artery disease) s/p CABG x3 with IMMANUEL clip (04/2021) Follows with Dr. Hagan Venous stasis ulcers of both lower extremities Diabetic retinopathy History of rectal abscess > 20 yrs ago Past Family History Family History Father Prostate cancer Myocardial infarction Coronary arteriosclerosis Other Family history non-contributory No family history of adverse response to anesthesia Denies family history of Colon cancer Ovarian cancer Breast cancer Past Surgical History Surgical History History of cardiac catheterization 02/2021 [place] CABG History of coronary artery bypass graft x 3 04/22/2021 History of incision and drainage rectal abscess S/P tonsillectomy Social History Smoking Status: Never smoker Do You Dip or Chew Tobacco: No Hx Alcohol Use: No alcohol intake frequency: holidays/special occasions only Hx Substance Use: No substance use type: does not use Physical Exam Vital Signs Last Vital Signs Temp 97.3 F L 09/22/23 07:50 Pulse 98 H 09/22/23 08:19 Resp 16 09/22/23 07:50 BP 110/80 09/22/23 08:19 Pulse Ox 100 09/22/23 07:50 O2 Del Method Nasal Cannula 09/22/23 07:50 O2 Flow Rate 2 09/22/23 07:50 Testing Laboratory Results 09/22/23 05:52 09/22/23 00:20 PT 12.1 Seconds (9.0-12.0) H 09/22/23 05:52 INR 1.1 (0.9-1.1) 09/22/23 05:52 Hemoglobin A1c 6.6 % (4.5-5.6) H 09/22/23 05:52 09/22/23 09/22/23 02:55 00:27 POC Glucose 159 H POC Glucose (other) 157 H Electrocardiogram Date: 09/22/23 Findings: + AFIB @ Echocardiogram Date: 08/20/22 EF: 35-40 mild-mod pulm htn
[2023-09-22] MEDS ORDERED: fentaNYL citrate PF 100 MCG/2 ML VIAL IV PRN (08:58)
[2023-09-22] MEDS ORDERED: ePHEDrine sulfate 50 MG/ML AMP IV PRN (08:58)
[2023-09-22] MEDS ORDERED: ONDANSETRON INJ 2 MG/ML 2 ML VIAL IV PRN (08:58)
[2023-09-22] MEDS ORDERED: ATROPINE SULFATE 0.1 MG/ML 10ML SYR IV PRN (08:58)
[2023-09-22 09:26] LABS: Appearance Urine Clear (Clear); Bacteria Urine Automated 2+ (None Seen); Bilirubin Urine Negative (Negative); Blood Urine Trace (Negative); Cast Urine Automated 0-2 /lpf (0-2); Color Urine Yellow; Epithelial Cell Urine Auto 0-2 /hpf (0-2); Glucose Urine UA Negative (Negative); Ketones Urine 1+ (Negative); Leukocyte Esterase Urine 2+ (Negative); Nitrite Urine Positive (Negative); Protein Urine 1+ (Negative); Specific Gravity Urine > 1.045 (1.000-1.030); Urobilinogen Urine Negative (Negative); WBC Urine Automated >50 /hpf (0-5); pH Urine 6.5 (4.5-7.5)
--- NOTE | 2023-09-22 09:28 | Surgery Consultation ---
Date of Consultation September 22, 2023 Assessment & Plan (1) Incarcerated umbilical hernia: hold eliquis to OR for reduction and repair of hernia IV abx consent obtained Present on Admission?: Yes History of Present Illness Attending Physician: Alex Ulloa MD History of Present Illness This is a 77-year-old male with a past medical history putting diabetic peripheral neuropathy, permanent atrial fibrillation with history of RVR on chronic anticoagulation, cerebral vascular malformation, 4th nerve palsy, ischemic cardiomyopathy, hypercholesterolemia, CAD, chronic systolic CHF, status post CABG, status post ligation of left atrial appendage, hypertension, and diabetes mellitus. He was admitted from ED last night with incarcerated umbilical hernia since last night with normal WBC and lactate. He has had associated nausea and vomiting, and inability to hold food or liquids down. He is on blood thinners, will hold and repair hernia today. Allergies Allergy/AdvReac Type Severity Reaction Status Date / Time spironolactone Allergy Severe Extreme Verified 09/22/23 08:34 diarrhea pyridostigmine Allergy Mild Vomiting Verified 09/22/23 08:34 Home Medications Medication Instructions Recorded Confirmed Type triamcinolone acetonide 0.1 % 1 applic topical DAILY PRN ud 03/04/22 09/22/23 History topical ointment multivitamin 1 tab PO QDL 04/23/22 09/22/23 History insulin glargine U-300 conc 300 0 unit subcut DAILY 09/03/22 09/22/23 History unit/mL (1.5 mL) subcutaneous pen (Toujeo SoloStar U-300 Insulin) apixaban 5 mg tablet (Eliquis) 5 mg PO BID #180 tabs 12/30/22 09/22/23 Rx atorvastatin 40 mg tablet 40 mg PO QDL #90 tabs 01/07/23 09/22/23 Rx sildenafil 100 mg tablet 100 mg PO DAILY PRN sexual 01/21/23 09/22/23 Rx activity #10 tabs sacubitril 49 mg-valsartan 51 mg 1 tab PO BID #180 tabs 04/28/23 09/22/23 Rx tablet (Entresto) spironolactone 25 mg tablet 12.5 mg (1/2 x 25 mg) PO DAILY #30 05/04/23 09/22/23 Rx tabs metoprolol succinate 100 mg 100 mg PO BID #180 tabs 05/25/23 09/22/23 Rx tablet,extended release 24 hr (Toprol XL) furosemide 20 mg tablet (Lasix) 20 mg PO DAILY 09/22/23 09/22/23 History liraglutide 0.6 mg/0.1 mL (18 mg/3 1.2 mg subcut DAILY 09/22/23 09/22/23 History mL) subcutaneous pen injector (Victoza 2-Fady) Patient History Medical History Nephrolithiasis Asthmatic bronchitis Pulmonary hypertension mild, PASP 45-50 mmHg GERD (gastroesophageal reflux disease) rare, stable per pt History of blood transfusion 2021 Eye problem Pt c/o ongoing issue with his vision. states he's been worked up for myesthenia gravis & 4th nerve palsy but no official diagnosis Venous stasis ulcer BLLE (hx) - [place] [facility] in past 2021 CAD (coronary artery disease) s/p CABG x3 with IMMANUEL clip (04/2021) Follows with Dr. Hagan Venous stasis ulcers of both lower extremities Diabetic retinopathy History of rectal abscess > 20 yrs ago Surgical History History of cardiac catheterization 02/2021 [place] > CABG History of coronary artery bypass graft x 3 04/22/2021 History of incision and drainage rectal abscess S/P tonsillectomy Family History Father Prostate cancer Myocardial infarction Coronary arteriosclerosis Other Family history non-contributory No family history of adverse response to anesthesia Denies family history of Colon cancer Ovarian cancer Breast cancer Social History Smoking Status: Never smoker Second Hand Exposure: Yes (as a child); Do You Dip or Chew Tobacco: No; Hx Alcohol Use: No Hx Substance Use: No Preferred Language: Vietnamese Communication Ability: Effective Visual Impairment: Diminished Hearing Ability: Normal 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 Beliefs That Will Affect Care: None marital status: Current Living Situation: Spouse Current Living Situation Comment: Lives at home with current occupational status: retired How many Children do You have: 1 Other Information That Helps Us Care for You: No Feels Safe at Home: Yes Safety Concerns: Feels Safe At This Time Childhood Exposure to Second-Hand Smoke: Yes Diet: regular caffeine: No during the past year weight has: decreased > 10 lbs Dental Care, Regularly: Yes Physical Activity Frequency: Does not Exercise Seatbelt Use: always Sunscreen Use: Yes Do you think of yourself as: straight/heterosexual Gender Identity: Male Assistive Devices: Glasses Review of Systems Constitutional: + anorexia and + weight loss; no fever a nd no chills Eyes: no problem reported Ear, Nose, Mouth, Throat: no problem reported Respiratory: no cough and no dyspnea Cardiovascular: no chest pain Gastrointestinal: + abdominal pain, + nausea, + vomiting a nd + change in bowel habits Genitourinary: no dysuria Musculoskeletal: no back pain Integumentary: no problem reported Neurologic: no localized weakness and no generalized weakness Psychiatric: no behavioral changes Endocrine: no problem reported Hematologic / Lymphatic: + easy bleeding and + easy bruising Physical Exam Eyes: PERRL, conjunctivae normal, anicteric sclerae ENMT: external ear and nose normal, oropharynx normal Neck: trachea midline Respiratory: normal respiratory effort, lungs clear to auscultation Cardiovascular: Rate/Rhythm: + tachycardic Gastrointestinal (Abdomen): Inspection/Auscultation: abdomen normal to inspection, + abdomen distended and + visible herniation (nonreducible hernia without signs of ischemia) Percussion/Palpation: + abdomen tender and abdomen soft; no guarding and abdomen not rigid Musculoskeletal: Head/Neck/Chest: normocephalic and head atraumatic Skin: no rashes, warm and dry Psychiatric: Orientation: alert and oriented x 3 Results & Data Vital Signs (Past 12 Hours) Vital Signs Temp Pulse Pulse Resp BP BP Pulse Ox 09/22/23 09:09 09/22/23 08:25 37.1 C 96 H 18 121/73 97 09/22/23 08:19 98 H 110/80 09/22/23 07:50 36.3 C L 98 H 16 110/80 100 09/22/23 04:58 95 H 133/82 09/22/23 03:29 101 H 09/22/23 02:30 36.7 C 94 H 20 152/93 H 99 09/22/23 02:05 90 16 129/76 94 09/22/23 01:15 77 09/22/23 00:18 82 16 99 09/22/23 00:07 36.5 C 96 H 19 134/85 99 O2 Del Method O2 Flow Rate 09/22/23 09:09 Room Air 09/22/23 08:25 Room Air 09/22/23 08:19 09/22/23 07:50 Nasal Cannula 2 09/22/23 04:58 09/22/23 03:29 09/22/23 02:30 Nasal Cannula 3 09/22/23 02:05 Nasal Cannula 2 09/22/23 01:15 09/22/23 00:18 Room Air 09/22/23 00:07 Room Air Diagnostic Findings EXAM: CT Abdomen and Pelvis With Intravenous Contrast CLINICAL HISTORY: Reason for exam: severe pain, n/v, hernia, ? strangulated/sbo. TECHNIQUE: Axial computed tomography images of the abdomen and pelvis with intravenous contrast. CTDI is 28.14 mGy and DLP is 1415.4 mGy-cm. Automated exposure control was utilized for the study. A dose lowering technique was utilized adhering to the principles of ALARA. CONTRAST: Patient received 93 ml optiray 320 of IV contrast COMPARISON: 09/03/22 FINDINGS: Lung bases: Unremarkable. No mass. No consolidation. ABDOMEN: Liver: Unremarkable. No mass. Gallbladder and bile ducts: Cholecystectomy. No ductal dilation. Pancreas: Unremarkable. No mass. No ductal dilation. Spleen: Unremarkable. No splenomegaly. Adrenals: Unremarkable. No mass. Kidneys and ureters: Symmetric renal enhancement. No hydronephrosis. Small simple left kidney upper pole cyst; no follow-up indicated. Stomach and bowel: Dilated, fluid-filled loop of small bowel incarcerated within an umbilical hernia. Ascites within the hernia sac. High-grade upstream small bowel obstruction with dilated loops measuring up to 4 cm. Diverticulosis without diverticulitis. PELVIS: Appendix: No evidence of appendicitis. Bladder: Unremarkable. No mass. Reproductive: Unremarkable. ABDOMEN and PELVIS: Intraperitoneal space: Mesenteric edema. Trace ascites within the abdomen. No free air. Bones/joints: Degenerative changes of the spine and left hip. Right total hip arthroplasty. No acute fracture or dislocation. Soft tissues: Umbilical hernia with incarcerated small bowel loop resulting in closed loop small bowel obstruction. Fat-containing left inguinal hernia. Vasculature: Coronary artery atherosclerosis. Aortoiliac atherosclerosis without aortic aneurysm. 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 Lymph nodes: Unremarkable. No enlarged lymph nodes. IMPRESSION: 1. Dilated, fluid-filled loop of small bowel incarcerated within an umbilical hernia. Ascites within the hernia sac. High-grade upstream small bowel obstruction with dilated loops measuring up to 4 cm. Appearance technically represent a closed loop obstruction. Surgical consultation recommended. 2. 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
[2023-09-22] MEDS ORDERED: PHENYLEPHRINE 100MCG/ML 10ML SYR IV ONE (10:11)
[2023-09-22] MEDS ORDERED: VASOPRESSIN 20 UNIT/ML VIAL ONE (10:11)
[2023-09-22] MEDS ORDERED: SUGAMMADEX SODIUM 200 MG/2 ML VIAL IV ONE (10:21)
[2023-09-22] MEDS: BUPIVACAINE/EPINEPHRINE 0.5% MPF 1:200,000 30 ML VIAL ONE (10:28)
[2023-09-22] MEDS ORDERED: KETAMINE HCL 10MG/ML SYR ONE (10:29)
--- NOTE | 2023-09-22 10:37 | Operative Report ---
Post Operative Report Pre & Post Diagnosis Operation Date: 09/22/23 08:00 Incarcerated umbilical hernia I identified the patient and participated in the time-out.: Yes Procedure Operation Date: 09/22/23 08:00 Open umbilical hernia with reduction of small bowel and placement of a 6.4 cm circular dual mesh Surgeon Yuriy Carrasco MD Land Degradation Analyst Shraddha Bello PA-C Estimated Blood Loss 15 Findings Consistent with Post-Op Diagnosis Incarcerated umbilical hernia with viable loop of small bowel, no ischemia. Specimens None Drains None Anesthesia Type General Complications None Indications This is a 77-year-old male was admitted last night with an incarcerated umbilical hernia. He had a normal white count and normal lactate. On CT there was a small bowel loop causing a bowel obstruction without any signs of ischemia. He was on Eliquis for A-fib this was held and he presents today for repair with possible mesh. Description of Procedure Patient taken the OR and underwent excellent general anesthesia. Their abdomen was prepped and draped in normal sterile fashion. A transverse infraumbilical incision was made and sharp dissection was taken down down to identify the an terior fascia. A Mi clamp was then used to circumferentially dissected around the hernia sac. The hernia sac was then from the dermis using cautery. A loop of small bowel was dissected free of the hernia sac, it was viable without ischemia. The loop was reduced back into the peritoneal cavity. A 3 cm defect was identified. Two stay sutures were placed on either side of the defect. Some of the preperitoneal fat was excised off the fascia posteriorly. A piece of 6.4 cm Ventralight mesh circular was then obtained. This was placed into the defect. This lay flat in the defect with good circumferential coverage. A series of 0 Ethibond sutures were then used to secure the mesh to the fascia. Once this was done and the mesh was in good position, a Vicryl suture was used to tack the dermis and a portion of the hernia sac down to the fascia. 0.5% Marcaine with epinephrine local was used to create local field block. The skin was closed with a Vicryl sutures. Dermabond was used to reinforce the closure. Patient tolerated procedure without complications. They were then sent to postop recovery period of observation. Shraddha Bello PA-C was used to assist me during the case and she assisted in retraction, skin closure and and facilitating exposure in the case. There is no qualified resident available to assist with this case. I attest to the content of the Intraoperative Record and any orders documented therein. Any exceptions are noted below.
--- NOTE | 2023-09-22 10:43 | Electrocardiogram Report ---
Test Reason : Blood Pressure : */* mmHG Vent. Rate : 94 BPM Atrial Rate : * BPM P-R Int : * ms QRS Dur : 92 ms QT Int : 366 ms P-R-T Axes : * -19 17 degrees QTcB Int : 457 ms Atrial fibrillation Septal infarct (cited on or before 29-Apr-2022) Abnormal ECG When compared with ECG of 03-Sep-2022 08:49, Questionable change in initial forces of Septal leads Nonspecific T wave abnormality, worse in Inferior leads Nonspecific T wave abnormality no longer evident in Lateral leads Confirmed by Matteo Gomez ([id number]) on 09/22/2023 10:43:02 AM Referred By: REFERRED SELF Confirmed By: Matteo Gomez
[2023-09-22] MEDS: METOPROLOL TARTRATE 1 MG/ML VIAL IV STA (11:35)
--- NOTE | 2023-09-22 11:54 | Anesthesiology Progress Note ---
Date of Service September 22, 2023 Anesthesia Post Procedure Vital Signs Vital Signs: Temp Pulse Pulse Resp BP BP Pulse Ox 09/22/23 11:45 97.5 F L 136 H 16 113/66 96 09/22/23 11:35 141 H 136/94 09/22/23 11:35 141 H 15 119/83 97 09/22/23 11:25 125 H 16 138/92 98 09/22/23 11:15 148 H 17 144/85 H 97 09/22/23 11:07 97.3 F L 133 H 22 148/103 H 95 09/22/23 09:09 09/22/23 08:25 98.8 F 96 H 18 121/73 97 09/22/23 08:19 98 H 110/80 09/22/23 07:50 97.3 F L 98 H 16 110/80 100 09/22/23 04:58 95 H 133/82 09/22/23 03:29 101 H 09/22/23 02:30 98.1 F 94 H 20 152/93 H 99 09/22/23 02:05 90 16 129/76 94 09/22/23 01:15 77 09/22/23 00:18 82 16 99 09/22/23 00:07 97.7 F 96 H 19 134/85 99 O2 Del Method O2 Flow Rate 09/22/23 11:45 Oxymask 3 09/22/23 11:35 09/22/23 11:35 Oxymask 3 09/22/23 11:25 Oxymask 5 09/22/23 11:15 Oxymask 7 09/22/23 11:07 Oxymask 9 09/22/23 09:09 Room Air 09/22/23 08:25 Room Air 09/22/23 08:19 09/22/23 07:50 Nasal Cannula 2 09/22/23 04:58 09/22/23 03:29 09/22/23 02:30 Nasal Cannula 3 09/22/23 02:05 Nasal Cannula 2 09/22/23 01:15 09/22/23 00:18 Room Air 09/22/23 00:07 Room Air Pain Intensity Lower Abdomen: Pain Intensity: 5 Transfer of Care Handoff Completed per policy Notes Mental Status: alert / awake / arousable and participated in evaluation Patient Amnestic to Procedure: Yes Nausea / Vomiting: adequately controlled Pain: adequately controlled Airway Patency, RR, SpO2: stable & adequate BP & HR: stable & adequate and see Notes below Hydration State: stable & adequate Anesthetic Complications: no major complications apparent and Pt Satisfied with anesthetic care Notes: patient in AF with RVR in 120s-140s, BP stable, patient given 4 mg of IV metoprolol without much effect, patient stable, awake and responsive, pain and nausea controlled, will reach out to hospitalist given need for continued rate control on floor.
[2023-09-22] MEDS ORDERED: oxyCODONE/ACETAMINOPHEN 5mg/325mg TAB PO PRN ×2 (12:29)
[2023-09-22] MEDS: PANTOprazole 40 MG in SYRINGE 0 ML IV SCH (12:33)
--- NOTE | 2023-09-22 12:53 | Electrocardiogram Report ---
Test Reason : Blood Pressure : */* mmHG Vent. Rate : 97 BPM Atrial Rate : 87 BPM P-R Int : * ms QRS Dur : 92 ms QT Int : 358 ms P-R-T Axes : * 1 -37 degrees QTcB Int : 454 ms Atrial fibrillation Septal infarct (cited on or before 29-Apr-2022) Nonspecific T wave abnormality Abnormal ECG When compared with ECG of 22-Sep-2023 00:41, Nonspecific T wave abnormality now evident in Lateral leads Confirmed by Matteo Gomez ([id number]) on 09/22/2023 12:52:50 PM Referred By: REFERRED SELF Confirmed By: Matteo Gomez
[2023-09-22] MEDS: METOPROLOL TARTRATE 50 MG TAB PO STA (12:56)
--- NOTE | 2023-09-22 13:32 | Hospitalist Progress Note ---
Date of Service September 22, 2023 Assessment & Plan (1) Incarcerated umbilical hernia: Plan: s/p open umbilical hernia with reduction of small bowel and placement of a 6.4 cm circular dual mesh all bowel was viable per surgery intra-op course complicated by rapid a.fib - see below with EF of 30-35% would reduce post-op fluid rate (and he has already received 2 L of crystalloid) appreciate general surgery assistance will message them about timing of resumption of IV heparin (2) Small bowel obstruction: Plan: 2nd to #1 - resolved, s/p umbilical hernia repair & reduction of small bowel (3) Permanent atrial fibrillation with rapid ventricular response: Plan: patient typically is on meto succinate 100mg BID did not receive such this am due to NPO status also typically on Eliquis - on hold due to #1 was receiving IV lopressor overnight can stop such and change to po metoprolol tartrate - give 50mg now and assess response cont to hold Eliquis will message surgery to see when they are ok with resumption of systemic anticoagulation (4) Sleep apnea: Plan: cont CPAP (5) Ischemic cardiomyopathy: Plan: EF 30-35% follows with Dr Mikhail Hagan - [facility] [place] Cardiology hold aldactone hold Entresto hold meto succ hold lasix daily weights CAUTIOUS IV fluids today while diet is being restricted re-introduce cardiac meds as tolerated/as able (6) CAD (coronary artery disease): Plan: no ischemic symptoms post-op can resume statin tomorrow resume beta vanessa as tolerated (7) Chronic systolic (congestive) heart failure: Plan: EF 30-35% see #5 above (8) Hypertension: Plan: well controlled at this time without any hypotension upon arrival to PCU (9) Type 2 diabetes mellitus: Plan: a1c 6.6% hold Victoza hold lantus novolog SSI BSG ac/hs DM diet Plan will likely need PT/OT will update family when able Admission and Anticipated Discharge Date Admission Date: September 22, 2023 Subjective saw patient post-op from his umbilical hernia repair he received 2 liters of crystalloid in the OR his operative course was complicated by a.fib with RVR requiring IV lopressor he needed pressors only brief for mild intra-op hypotension patient was resting comfortably during my visit complained of operative site pain but no N/V ?mild dyspnea at rest no chest pain he is tired Review of Systems Review of Systems: gen - no fevers cv - no chest pain, no orthopnea pulm - mild "mucous" in his chest GI - no N/V Physical Exam Physical Exam: gen - looks tired but otherwise well; NAD, comfortable neck - JVD present mouth - MMM, posterior throat irritation heart - tachy, irregularly irregular, s1 s2, no murmur lungs - rales R base, otherwise CTA b/l, no increased work of breathing abd - distended, BS decreased, abd binder in place, tender over operative site, dressings intact ext - no edema, pulses 2+ b/l psych - a/o x 3 Results & Data Results & Data Vital Signs (Past 12 Hours) Vital Signs Temp Pulse Pulse Resp BP BP Pulse Ox 09/22/23 12:30 138 H 109/77 09/22/23 12:27 128 H 16 109/77 97 09/22/23 12:05 136 H 16 108/69 96 09/22/23 11:55 134 H 17 97/73 L 95 09/22/23 11:45 36.4 C L 136 H 16 113/66 96 09/22/23 11:35 141 H 136/94 09/22/23 11:35 141 H 15 119/83 97 09/22/23 11:25 125 H 16 138/92 98 09/22/23 11:15 148 H 17 144/85 H 97 09/22/23 11:07 36.3 C L 133 H 22 148/103 H 95 09/22/23 09:09 09/22/23 08:25 37.1 C 96 H 18 121/73 97 09/22/23 08:19 98 H 110/80 09/22/23 07:50 36.3 C L 98 H 16 110/80 100 09/22/23 04:58 95 H 133/82 09/22/23 03:29 101 H 09/22/23 02:30 36.7 C 94 H 20 152/93 H 99 09/22/23 02:05 90 16 129/76 94 O2 Del Method O2 Flow Rate 09/22/23 12:30 09/22/23 12:27 Nasal Cannula 2 09/22/23 12:05 Nasal Cannula 3 09/22/23 11:55 Nasal Cannula 3 09/22/23 11:45 Oxymask 3 09/22/23 11:35 09/22/23 11:35 Oxymask 3 09/22/23 11:25 Oxymask 5 09/22/23 11:15 Oxymask 7 09/22/23 11:07 Oxymask 9 09/22/23 09:09 Room Air 09/22/23 08:25 Room Air 09/22/23 08:19 09/22/23 07:50 Nasal Cannula 2 09/22/23 04:58 09/22/23 03:29 09/22/23 02:30 Nasal Cannula 3 09/22/23 02:05 Nasal Cannula 2 Laboratory Results Laboratory Results - last 24 hr 09/22/23 09/22/23 09/22/23 00:20 00:27 02:55 WBC 9.13 RBC 4.16 L Hgb 13.7 L POC Hgb 13.6 L Hct 39.5 L POC Hct 40 L MCV 95.0 MCH 32.9 MCHC 34.7 RDW Std Deviation 42.5 RDW Coeff of Bart 12.1 Plt Count 163 MPV 11.3 Immature Gran % (Auto) 0.2 Neut % (Auto) 73.7 Lymph % (Auto) 15.7 [place] % (Auto) 8.5 Eos % (Auto) 1.5 Baso % (Auto) 0.4 Neut # (Auto) 6.72 H Lymph # (Auto) 1.43 [place] # (Auto) 0.78 H Eos # (Auto) 0.14 Baso # (Auto) 0.04 Immature Gran # (Auto) 0.02 PT INR POC Sodium 141 Sodium 141 POC Potassium 4.1 Potassium 4.1 POC Chloride 104 Chloride 103 Carbon Dioxide 30 POC Total CO2 27 Anion Gap 8 POC Anion Gap 16.0 POC BUN 35 H BUN 37 H Creatinine 1.27 POC Creatinine 1.3 Est Cr Clr Drug Dosing 55.8 Est GFR ( Amer) 63.6 Est GFR (Non-Af Amer) 54.9 BUN/Creatinine Ratio 29.1 H Glucose 157 H POC Glucose 159 H POC Glucose (other) 157 H Estimat Average Glucose Hemoglobin A1c Lactate 1.8 Calcium 10.0 POC Ioniz Calcium Ben 1.19 Magnesium 1.8 Total Bilirubin 0.9 AST 21 ALT 18 Alkaline Phosphatase 59 Troponin I High Sens 15.8 Total Protein 7.4 Albumin 4.5 Globulin 2.9 Albumin/Globulin Ratio 1.6 Lipase 17 Urine Color Urine Appearance Urine pH Ur Specific [place] Urine Protein Urine Glucose (UA) Urine Ketones Urine Blood Urine Nitrite Urine Bilirubin Urine Urobilinogen Ur Leukocyte Esterase Urine WBC (Auto) Urine RBC (Auto) U Hyaline Cast (Auto) U Epithel Cells (Auto) Urine Bacteria (Auto) 09/22/23 09/22/23 09/22/23 05:52 08:00 11:16 WBC 8.65 RBC 3.48 L Hgb 11.6 L POC Hgb Hct 34.0 L POC Hct MCV 97.7 MCH 33.3 MCHC 34.1 RDW Std Deviation 43.7 RDW Coeff of Bart 12.2 Plt Count 118 L MPV 11.1 Immature Gran % (Auto) 0.3 Neut % (Auto) 87.7 Lymph % (Auto) 5.5 [place] % (Auto) 5.9 Eos % (Auto) 0.3 Baso % (Auto) 0.3 Neut # (Auto) 7.57 H Lymph # (Auto) 0.48 L [place] # (Auto) 0.51 Eos # (Auto) 0.03 Baso # (Auto) 0.03 Immature Gran # (Auto) 0.03 PT 12.1 H INR 1.1 POC Sodium Sodium POC Potassium Potassium POC Chloride Chloride Carbon Dioxide POC Total CO2 Anion Gap POC Anion Gap POC BUN BUN Creatinine POC Creatinine Est Cr Clr Drug Dosing Est GFR ( Amer) Est GFR (Non-Af Amer) BUN/Creatinine Ratio Glucose POC Glucose 174 H POC Glucose (other) Estimat Average Glucose 143 Hemoglobin A1c 6.6 H Lactate Calcium POC Ioniz Calcium Ben Magnesium Total Bilirubin AST ALT Alkaline Phosphatase Troponin I High Sens Total Protein Albumin Globulin Albumin/Globulin Ratio Lipase Urine Color Yellow Urine Appearance Clear Urine pH 6.5 Ur Specific [place] > 1.045 H Urine Protein 1+ H Urine Glucose (UA) Negative Urine Ketones 1+ H Urine Blood Trace H Urine Nitrite Positive A Urine Bilirubin Negative Urine Urobilinogen Negative Ur Leukocyte Esterase 2+ H Urine WBC (Auto) >50 H Urine RBC (Auto) 3-5 H U Hyaline Cast (Auto) 0-2 U Epithel Cells (Auto) 0-2 Urine Bacteria (Auto) 2+ H 09/22/23 12:47 WBC RBC Hgb POC Hgb Hct POC Hct MCV MCH MCHC RDW Std Deviation RDW Coeff of Bart Plt Count MPV Immature Gran % (Auto) Neut % (Auto) Lymph % (Auto) [place] % (Auto) Eos % (Auto) Baso % (Auto) Neut # (Auto) Lymph # (Auto) [place] # (Auto) Eos # (Auto) Baso # (Auto) Immature Gran # (Auto) PT INR POC Sodium Sodium POC Potassium Potassium POC Chloride Chloride Carbon Dioxide POC Total CO2 Anion Gap POC Anion Gap POC BUN BUN Creatinine POC Creatinine Est Cr Clr Drug Dosing Est GFR ( Amer) Est GFR (Non-Af Amer) BUN/Creatinine Ratio Glucose POC Glucose 190 H POC Glucose (other) Estimat Average Glucose Hemoglobin A1c Lactate Calcium POC Ioniz Calcium Ben Magnesium Total Bilirubin AST ALT Alkaline Phosphatase Troponin I High Sens Total Protein Albumin Globulin Albumin/Globulin Ratio Lipase Urine Color Urine Appearance Urine pH Ur Specific [place] Urine Protein Urine Glucose (UA) Urine Ketones Urine Blood Urine Nitrite Urine Bilirubin Urine Urobilinogen Ur Leukocyte Esterase Urine WBC (Auto) Urine RBC (Auto) U Hyaline Cast (Auto) U Epithel Cells (Auto) Urine Bacteria (Auto) PG Care Time/CCT Total # of Minutes Spent Total Time Spent with Patient: Total time spent is greater than 50% in coordination of care (as documented) at patient's floor/unit and/or counseling patient: Coding Level of Care Code 24748 SUB INP/OBS CARE 235MIN Diagnoses Incarcerated umbilical hernia K42.0 Small bowel obstruction K56.609 Permanent atrial fibrillation with rapid ventricular response I48.21 Sleep apnea G47.30 Ischemic cardiomyopathy I25.5 CAD (coronary artery disease) I25.10 Chronic systolic (congestive) heart failure I50.22 Hypertension I10 Type 2 diabetes mellitus E11.9
[2023-09-22] MEDS: METOPROLOL TARTRATE 50 MG TAB PO SCH (20:47)
[2023-09-23] MEDS: SODIUM CHLORIDE 0.9% 500 ML IV SCH (00:04)
[2023-09-23 06:58] LABS: Basophils # (auto) 0.04 K/uL (0.00-0.20); Basophils % (auto) 0.4 %; Eosinophils # (auto) 0.13 K/uL (0.00-0.50); Eosinophils % (auto) 1.3 %; Hematocrit (blood only) 33.6 % (42.0-52.0); Hemoglobin 11.3 g/dl (14.0-18.0); Immature Granulocytes # (auto) 0.05 K/uL (0.01-0.20); Immature Granulocytes % (auto) 0.5 %; Lymphocytes # (auto) 0.91 K/uL (1.20-3.40); Lymphocytes % (auto) 8.9 %; Mean Corpuscular Hemoglobin 33.2 pg (25.0-34.0); Mean Corpuscular Hgb Conc 33.6 g/dL (32.0-36.0); Mean Corpuscular Volume 98.8 fL (80.0-100.0); Mean Platelet Volume 11.3 fL (9.4-12.4); Monocytes # (auto) 0.86 K/uL (0.11-0.59); Monocytes % (auto) 8.4 %; Neutrophils # (auto) 8.22 K/uL (1.40-6.50); Neutrophils % (auto) 80.5 %; Platelet Count 110 K/uL (130-400); RDW Coefficient of Variation 12.6 % (11.5-14.5); RDW Standard Deviation 45.2 fL (36.4-46.3); White Blood Count 10.21 K/ul (4.8-10.8)
[2023-09-23 07:19] LABS: INR 1.2 (0.9-1.1); Partial Thromboplastin Ratio 1.2; Partial Thromboplastin Time 31 Seconds (21-31); Prothrombin Time 12.7 Seconds (9.0-12.0)
[2023-09-23 07:23] LABS: BUN Creatinine Ratio 23.3 (10-20); Calcium 8.6 mg/dl (8.6-10.3); Creatinine Clr Calc Pharmacy 45.2 ml/min; Est GFR (African American) 48.5 ml/min; Est GFR (Non-African American) 41.8 ml/min; Magnesium 1.4 mg/dl (1.7-2.4); Potassium 4.5 mmol/L (3.5-5.1)
--- NOTE | 2023-09-23 08:35 | Surgery Progress Note ---
Date of Service September 23, 2023 Assessment & Plan (1) Incarcerated umbilical hernia: Plan: restart IVF, still likely dehydrated begin fulls OOB await bowel function; good BS incision clean and dry OK to restart eliquis tomorrow, 09/23 Admission and Anticipated Discharge Date Admission Date: September 22, 2023 Subjective alert pain controlled no N/V tolerating clears Review of Systems Constitutional: no fever and no chills Respiratory: no cough and no dyspnea Cardiovascular: no chest pain Gastrointestinal: + abdominal pain; no nausea and no vomit ing Genitourinary: no dysuria Neurologic: + generalized weakness Psychiatric: no behavioral changes Physical Exam Constitutional: WD/WN, vitals as above Respiratory: normal respiratory effort, lungs clear to auscultation Cardiovascular: RRR, no murmur, no edema Gastrointestinal (Abdomen): Inspection/Auscultation: abdomen normal to insp ection, normal bowel sounds and + abdominal surgical incision; abdomen not distended Percussion/Palpation: + abdomen tender and abdomen soft; no guarding and abdomen not rigid Musculoskeletal: Head/Neck/Chest: normocephalic and head atraumatic Skin: no rashes, warm and dry Results & Data Vital Signs (Past 12 Hours) Vital Signs Temp Pulse Pulse Resp BP BP Pulse Ox 09/23/23 07:47 37.5 C 106 H 18 90/68 L 91 09/23/23 05:45 110 H 108/65 09/23/23 03:07 36.6 C 94 H 14 87/51 L 91 09/22/23 23:30 88 16 91/48 L 91 09/22/23 22:45 37.5 C 86 16 84/41 L 94 09/22/23 21:52 93 H O2 Del Method 09/23/23 07:47 Room Air 09/23/23 05:45 09/23/23 03:07 Room Air 09/22/23 23:30 Room Air 09/22/23 22:45 Room Air 09/22/23 21:52
--- NOTE | 2023-09-23 09:20 | Electrocardiogram Report ---
Test Reason : Blood Pressure : */* mmHG Vent. Rate : 102 BPM Atrial Rate : 104 BPM P-R Int : * ms QRS Dur : 96 ms QT Int : 340 ms P-R-T Axes : * -26 49 degrees QTcB Int : 443 ms Atrial fibrillation with rapid ventricular response Anteroseptal infarct (cited on or before 29-Apr-2022) Abnormal ECG When compared with ECG of 22-Sep-2023 05:08, Questionable change in initial forces of Anterior leads Confirmed by Matteo Gomez ([id number] on 09/23/2023 9:20:06 AM Referred By: REFERRED SELF Confirmed By: Matteo Gomez
[2023-09-23] MEDS: LACTATED RINGER'S 1,000 ML IV SCH (09:54)
[2023-09-23] MEDS: MAGNESIUM SULFATE / D5W 1 GM/100 ML BAG IV SCH (09:54)
[2023-09-23] MEDS: METOPROLOL TARTRATE 25 MG TAB PO SCH (09:55)
--- NOTE | 2023-09-23 15:58 | Hospitalist Progress Note ---
Date of Service September 23, 2023 Assessment & Plan (1) Incarcerated umbilical hernia: Plan: POD #1 - s/p open umbilical hernia with reduction of small bowel and placement of a 6.4 cm circular dual mesh all bowel was viable per surgery intra-op course complicated by rapid a.fib - see below now with mild LAWRENCE - also see below +flatus tolerating clears; diet advanced by surgery to full liquids today appreciate general surgery assistance (2) LAWRENCE (acute kidney injury): Plan: Cr this am 1.5 repeat this afternoon 1.4 likely pre-renal due to intra-op hypotension (briefly required pressors during surgery) is on gentle IV fluids plan to d/c tonight to avoid volume overload repeat BMP am (3) Small bowel obstruction: Plan: 2nd to #1 - resolved, s/p umbilical hernia repair & reduction of small bowel +flatus abdomen benign today tolerating clears (4) Permanent atrial fibrillation with rapid ventricular response: Plan: patient typically is on meto succinate 100mg BID typically on Eliquis - on hold due to recent surgery cont metoprolol tartrate -25mg BID try to titrate back to pre-admission doses but BP likely to be limiting while here cont to hold Eliquis but can likely resume tomorrow resume heparin drip - standard dosing H/H stable today (5) Sleep apnea: Plan: cont CPAP - unit from home is at bedside (6) Ischemic cardiomyopathy: Plan: EF 30-35% follows with Dr Mikhail Hagan - [facility] [place] Cardiology hold aldactone hold Entresto hold meto succ ; use meto tartrate at reduced doses for now hold lasix daily weights CAUTIOUS IV fluids today but stop all IVF tonight (7) CAD (coronary artery disease): Plan: no ischemic symptoms while hospitalized (8) Chronic systolic (congestive) heart failure: Plan: EF 30-35% see above (9) Hypertension: Plan: has had mild, relative hypotension since his surgery BPs improving slowly follow carefully (10) Type 2 diabetes mellitus: Plan: a1c 6.6% hold Victoza hold lantus novolog SSI BSG ac/hs DM diet Plan PT/OT insomnia - add melatonin 3mg HS updated at bedside today questions answered progressing nicely Admission and Anticipated Discharge Date Admission Date: September 22, 2023 Subjective tele overnight - a.fib, rates 90s; some rates 100-120 tolerating clears passing flatus minimal operative site pain denies dyspnea denies dizziness did not sleep well last night - too many interruptions, etc Review of Systems Review of Systems: cv - no chest pain; mild edema of feet; no orthopnea/PND overnight pulm - no cough, no dyspnea GI - no vomiting Physical Exam Physical Exam: gen - looks good today, NAD, sitting in chair neck - mild JVD present sitting upright at 90 degrees mouth - MMM heart - rate <100 bpm, irregularly irregular, s1 s2, no murmur lungs - decreased BS bases, mild rales bases, no wheeze; no increased work of breathing abd - abd binder in place; this was partially removed; incisions clean/dry; no tenderness; BS+; nondistended ext - trace edema b/l feet, cool extremities, but pulses 1-2+ b/l psych - a/o x 3 Results & Data Results & Data Vital Signs (Past 12 Hours) Vital Signs Temp Pulse Pulse Resp BP Pulse Ox O2 Del Method 09/23/23 15:35 37.2 C 76 18 100/65 97 Room Air 09/23/23 11:27 37.0 C 94 H 20 96/60 L 90 Room Air 09/23/23 08:00 105 H 09/23/23 07:47 37.5 C 106 H 18 90/68 L 91 Room Air 09/23/23 05:45 110 H 108/65 Laboratory Results Laboratory Results - last 24 hr 09/22/23 09/22/23 09/23/23 16:38 20:20 06:28 WBC 10.21 RBC 3.40 L Hgb 11.3 L Hct 33.6 L MCV 98.8 MCH 33.2 MCHC 33.6 RDW Std Deviation 45.2 RDW Coeff of Bart 12.6 Plt Count 110 L MPV 11.3 Immature Gran % (Auto) 0.5 Neut % (Auto) 80.5 Lymph % (Auto) 8.9 [place] % (Auto) 8.4 Eos % (Auto) 1.3 Baso % (Auto) 0.4 Neut # (Auto) 8.22 H Lymph # (Auto) 0.91 L [place] # (Auto) 0.86 H Eos # (Auto) 0.13 Baso # (Auto) 0.04 Immature Gran # (Auto) 0.05 PT 12.7 H INR 1.2 H APTT 31 PTT Ratio 1.2 Sodium 138 Potassium 4.5 Chloride 105 Carbon Dioxide 28 Anion Gap 5 BUN 37 H Creatinine 1.59 H D Est Cr Clr Drug Dosing 45.2 Est GFR ( Amer) 48.5 Est GFR (Non-Af Amer) 41.8 BUN/Creatinine Ratio 23.3 H Glucose 104 H POC Glucose 139 H 172 H Calcium 8.6 Magnesium 1.4 L 09/23/23 09/23/23 07:21 10:55 WBC RBC Hgb Hct MCV MCH MCHC RDW Std Deviation RDW Coeff of Bart Plt Count MPV Immature Gran % (Auto) Neut % (Auto) Lymph % (Auto) [place] % (Auto) Eos % (Auto) Baso % (Auto) Neut # (Auto) Lymph # (Auto) [place] # (Auto) Eos # (Auto) Baso # (Auto) Immature Gran # (Auto) PT INR APTT PTT Ratio Sodium Potassium Chloride Carbon Dioxide Anion Gap BUN Creatinine Est Cr Clr Drug Dosing Est GFR ( Amer) Est GFR (Non-Af Amer) BUN/Creatinine Ratio Glucose POC Glucose 113 H 156 H Calcium Magnesium PG Care Time/CCT Total # of Minutes Spent Total Time Spent with Patient: Total time spent is greater than 50% in coordination of care (as documented) at patient's floor/unit and/or counseling patient: Coding Level of Care Code 83700 SUB INP/OBS CARE 2/35MIN Diagnoses Incarcerated umbilical hernia K42.0 LAWRENCE (acute kidney injury) N17.9 Small bowel obstruction K56.609 Permanent atrial fibrillation with rapid ventricular response I48.21 Sleep apnea G47.30 Ischemic cardiomyopathy I25.5 CAD (coronary artery disease) I25.10 Chronic systolic (congestive) heart failure I50.22 Hypertension I10 Type 2 diabetes mellitus E11.9
[2023-09-23 16:41] LABS: Calcium 8.6 mg/dl (8.6-10.3); Potassium 4.2 mmol/L (3.5-5.1)
[2023-09-23 16:46] LABS: BUN Creatinine Ratio 23.9 (10-20); Creatinine Clr Calc Pharmacy 51.1 ml/min; Est GFR (African American) 55.6 ml/min
[2023-09-23] MEDS: MELATONIN 3 MG TAB PO SCH (21:07)
[2023-09-23] MEDS ORDERED: ACETAMINOPHEN 500 MG TAB PO PRN (23:11)
[2023-09-23 23:33] LABS: ANTI-Xa, UFH(UnfractionatedHep 0.67 IU/ml (0.3-0.7)
[2023-09-24] MEDS ORDERED: PIPERACILLIN/TAZOBACTAM 4.5 GM/100 ML BAG IV SCH
[2023-09-24 06:48] LABS: Hemoglobin 10.5 g/dl (14.0-18.0); Mean Corpuscular Hemoglobin 33.3 pg (25.0-34.0); Mean Corpuscular Hgb Conc 33.9 g/dL (32.0-36.0); Mean Corpuscular Volume 98.4 fL (80.0-100.0); Mean Platelet Volume 11.6 fL (9.4-12.4); Platelet Count 94 K/uL (130-400); RDW Coefficient of Variation 12.3 % (11.5-14.5); RDW Standard Deviation 44.5 fL (36.4-46.3); Red Blood Count 3.15 M/uL (4.70-6.10); White Blood Count 9.29 K/ul (4.8-10.8)
[2023-09-24 06:55] LABS: BUN Creatinine Ratio 24.8 (10-20); Calcium 8.2 mg/dl (8.6-10.3); Est GFR (African American) 67.5 ml/min; Est GFR (Non-African American) 58.2 ml/min; Magnesium 1.6 mg/dl (1.7-2.4); Potassium 3.9 mmol/L (3.5-5.1)
[2023-09-24 06:58] LABS: Platelet Estimate Decreased (Normal)
[2023-09-24 07:02] LABS: ANTI-Xa, UFH(UnfractionatedHep 0.64 IU/ml (0.3-0.7)
--- NOTE | 2023-09-24 08:17 | Surgery Progress Note ---
Date of Service September 24, 2023 Assessment & Plan (1) Incarcerated umbilical hernia: Plan: regular diet ambulate home when medically cleared Admission and Anticipated Discharge Date Admission Date: September 22, 2023 Subjective pain controlled multiple BMs ambulating Review of Systems Constitutional: no fever and no chills Respiratory: no cough and no dyspnea Cardiovascular: no chest pain Gastrointestinal: + abdominal pain; no nausea and no vomit ing Genitourinary: no dysuria Neurologic: no localized weakness and no generalized weakness Psychiatric: no behavioral changes Physical Exam Constitutional: WD/WN, vitals as above Respiratory: normal respiratory effort Cardiovascular: RRR, no murmur, no edema Gastrointestinal (Abdomen): Inspection/Auscultation: abdomen normal to inspection, normal bowel sounds and + abdominal surgical incision; abdomen not distended Percussion/Palpation: + abdomen tender and abdomen soft; no guarding and abdomen not rigid Results & Data Vital Signs (Past 12 Hours) Vital Signs Temp Pulse Pulse Resp BP BP Pulse Ox 09/24/23 07:13 37.5 C 109 H 21 94/60 L 93/56 L 92 09/24/23 03:03 37.0 C 100 H 22 113/72 90 09/23/23 22:48 36.7 C 100 H 20 111/72 90 09/23/23 22:05 107 H 09/23/23 20:45 O2 Del Method 09/24/23 07:13 Room Air 09/24/23 03:03 CPAP 09/23/23 22:48 CPAP 09/23/23 22:05 09/23/23 20:45 Room Air
[2023-09-24] MEDS: METOPROLOL TARTRATE 50 MG TAB PO SCH (08:18)
[2023-09-24] MEDS: MAGNESIUM SULFATE / D5W 1 GM/100 ML BAG IV SCH (08:20)
[2023-09-24] MEDS: FUROSEMIDE 20 MG TAB PO SCH (08:52)
[2023-09-24] MEDS: APIXABAN 5 MG TABLET PO SCH (10:52)
--- NOTE | 2023-09-24 12:05 | Electrocardiogram Report ---
Test Reason : Blood Pressure : */* mmHG Vent. Rate : 111 BPM Atrial Rate : 53 BPM P-R Int : * ms QRS Dur : 86 ms QT Int : 316 ms P-R-T Axes : * -23 102 degrees QTcB Int : 429 ms Atrial fibrillation with rapid ventricular response with premature ventricular or aberrantly conducte d complexes Low voltage QRS Septal infarct (cited on or before 29-Apr-2022) Abnormal ECG When compared with ECG of 23-Sep-2023 05:13, Questionable change in initial forces of Anterior leads Confirmed by Matteo Gomez ([id number]) on 09/24/2023 12:05:09 PM Referred By: REFERRED SELF Confirmed By: Matteo Gomez
--- NOTE | 2023-09-24 13:05 | Hospitalist Progress Note ---
Date of Service September 24, 2023 Assessment & Plan (1) Incarcerated umbilical hernia: Plan: POD #2 - s/p open umbilical hernia with reduction of small bowel and placement of a 6.4 cm circular dual mesh all bowel was viable per surgery intra-op course complicated by rapid a.fib - improved/resolved - as well as mild LAWRENCE which is also resolved +flatus +stool diet advanced to regular diet today appreciate general surgery assistance (2) LAWRENCE (acute kidney injury): Plan: Peak Cr 1.5 Cr today 1.2 likely pre-renal due to intra-op hypotension (briefly required pressors during surgery) cont to hold Entresto repeat BMP am (3) Small bowel obstruction: Plan: 2nd to #1 - resolved, s/p umbilical hernia repair & reduction of small bowel see #1 above (4) Permanent atrial fibrillation with rapid ventricular response: Plan: improved rates cont metoprolol tartrate - increase to 50mg BID try to titrate back to pre-admission doses as BP allows stop heparin drip resume Eliquis today (5) Sleep apnea: Plan: cont CPAP - unit from home is at bedside (6) Ischemic cardiomyopathy: Plan: EF 30-35% follows with Dr Mikhail Hagan [place] [facility] [place] hold aldactone hold Entresto hold meto succ ; use meto tartrate in wero for now resume lasix today daily weights (7) CAD (coronary artery disease): Plan: no ischemic symptoms while hospitalized (8) Chronic systolic (congestive) heart failure: Plan: EF 30-35% see above (9) Hypertension: Plan: BPs stable/controlled no hypotension today (10) Type 2 diabetes mellitus: Plan: a1c 6.6% hold Victoza hold lantus novolog SSI BSG ac/hs DM diet Plan PT/OT - passed evals, cleared for home insomnia - melatonin 3mg HS updated at bedside today progressing nicely home 09/24? Admission and Anticipated Discharge Date Admission Date: September 22, 2023 Subjective multiple BMs overnight tolerating diet mild abd pain over operative site only with straining/coughing no dyspnea no MCMANUS no dizziness no lightheadedness tele - a.fib, rates <100 at bedside Review of Systems Review of Systems: gen - feels well, anxious to go home cv - no cp, no orthopnea; mild edema; does have his compression stockings on pulm - no cough or dyspnea Physical Exam Physical Exam: gen - looks great today; sitting in chair; NAD neck - no JVD sitting upright at 90 degrees mouth - MMM heart - rate <100 bpm, irregularly irregular, s1 s2, no murmur lungs - decreased BS bases, scant rales bases, no wheeze; no increased work of b reathing abd - abd binder in place; this was removed; umbilical incisions clean/dry; no tenderness; BS+; nondistended ext - trace edema b/l feet only, pulses 1-2+ b/l psych - a/o x 3 Results & Data Results & Data Vital Signs (Past 12 Hours) Vital Signs Temp Pulse Resp BP BP Pulse Ox O2 Del Method 09/24/23 11:00 36.8 C 85 20 94/60 L 97 Room Air 09/24/23 07:13 37.5 C 109 H 21 94/60 L 93/56 L 92 Room Air 09/24/23 03:03 37.0 C 100 H 22 113/72 90 CPAP Laboratory Results Laboratory Results - last 24 hr 09/23/23 09/23/23 09/23/23 16:08 16:27 20:27 Sodium 134 L Potassium 4.2 Chloride 105 Carbon Dioxide 20 L Anion Gap 9 BUN 34 H Creatinine 1.42 H Est Cr Clr Drug Dosing 51.1 Est GFR ( Amer) 55.6 Est GFR (Non-Af Amer) 48.0 BUN/Creatinine Ratio 23.9 H Glucose 138 H POC Glucose 156 H 164 H Calcium 8.6 09/23/23 09/24/23 09/24/23 22:39 06:06 07:16 WBC 9.29 RBC 3.15 L Hgb 10.5 L Hct 31.0 L MCV 98.4 MCH 33.3 MCHC 33.9 RDW Std Deviation 44.5 RDW Coeff of Bart 12.3 Plt Count 94 L MPV 11.6 Platelet Estimate Decreased L Heparin Anti-Xa, Unfract 0.67 0.64 Sodium 137 Potassium 3.9 Chloride 106 Carbon Dioxide 25 Anion Gap 6 BUN 30 H Creatinine 1.21 Est Cr Clr Drug Dosing 60.0 Est GFR ( Amer) 67.5 Est GFR (Non-Af Amer) 58.2 BUN/Creatinine Ratio 24.8 H Glucose 115 H POC Glucose 115 H Calcium 8.2 L Magnesium 1.6 L PG Care Time/CCT Total # of Minutes Spent Total Time Spent with Patient: Total time spent is greater than 50% in coordination of care (as documented) at patient's floor/unit and/or counseling patient: Coding Level of Care Code 75116 SUB INP/OBS CARE 2/35MIN Diagnoses Incarcerated umbilical hernia K42.0 LAWRENCE (acute kidney injury) N17.9 Small bowel obstruction K56.609 Permanent atrial fibrillation with rapid ventricular response I48.21 Sleep apnea G47.30 Ischemic cardiomyopathy I25.5 CAD (coronary artery disease) I25.10 Chronic systolic (congestive) heart failure I50.22 Hypertension I10 Type 2 diabetes mellitus E11.9
[2023-09-24 15:19] VITALS: RESP 18
[2023-09-24] MEDS: ATORVASTATIN 40 MG TAB PO SCH (17:41)
[2023-09-25 06:24] LABS: Hematocrit (blood only) 29.1 % (42.0-52.0); Mean Corpuscular Hemoglobin 32.8 pg (25.0-34.0); Mean Corpuscular Hgb Conc 34.4 g/dL (32.0-36.0); Mean Corpuscular Volume 95.4 fL (80.0-100.0); Mean Platelet Volume 11.4 fL (9.4-12.4); Platelet Count 96 K/uL (130-400); RDW Coefficient of Variation 11.7 % (11.5-14.5); RDW Standard Deviation 41.1 fL (36.4-46.3); Red Blood Count 3.05 M/uL (4.70-6.10); White Blood Count 6.14 K/ul (4.8-10.8)
[2023-09-25 06:40] LABS: Est GFR (African American) 75.7 ml/min; Est GFR (Non-African American) 65.3 ml/min; Potassium 4.1 mmol/L (3.5-5.1)
[2023-09-25 06:41] LABS: BUN Creatinine Ratio 24.5 (10-20); Calcium 8.2 mg/dl (8.6-10.3); Creatinine Clr Calc Pharmacy 66.1 ml/min; Magnesium 1.7 mg/dl (1.7-2.4)
[2023-09-25] MEDS: METOPROLOL TARTRATE 100 MG TAB PO SCH (08:30)
--- NOTE | 2023-09-25 09:17 | Surgery Progress Note ---
Date of Service September 25, 2023 Assessment & Plan (1) Incarcerated umbilical hernia: Plan: POD # 3 open umbilical hernia repair with mesh avss regular diet ambulate okay from surgery standpoint for discharge discharge instructions reviewed rx for Percocet prn pain sent to pharmacy 2 week follow-up in surgery office Admission and Anticipated Discharge Date Admission Date: September 22, 2023 Subjective feeling good minimal postop pain no n,v tolerating regular diet hopefully going home today Physical Exam Constitutional: WD/WN, vitals as above cooperative and comfortable; no acute distress and not ill appearing Respiratory: normal respiratory effort; no respiratory distress Gastrointestinal (Abdomen): Inspection/Auscultation: abdomen normal to inspection and + abdominal surgical incision (c/d/i with dermabond); abdomen not distended Percussion/Palpation: abdomen soft; abdomen nontender, no guarding, abdomen not rigid and abdomen not firm Skin: no rashes, warm and dry Psychiatric: A+Ox3, euthymic affect Results & Data Vital Signs (Past 12 Hours) Vital Signs Temp Pulse Resp BP Pulse Ox O2 Del Method 09/25/23 07:35 36.8 C 93 H 18 115/72 93 Room Air 09/25/23 03:15 36.6 C 86 125/70 94 Room Air 09/24/23 23:01 36.5 C 88 116/72 93 Room Air Laboratory Results 09/25/23 09/25/23 09/24/23 Range/Units 07:34 05:36 20:31 WBC 6.14 (4.8-10.8) K/ul RBC 3.05 L (4.70-6.10) M/uL Hgb 10.0 L (14.0-18.0) g/dl Hct 29.1 L (42.0-52.0) % MCV 95.4 (80.0-100.0) fL MCH 32.8 (25.0-34.0) pg MCHC 34.4 (32.0-36.0) g/dL RDW Std Deviation 41.1 (36.4-46.3) fL RDW Coeff of Bart 11.7 (11.5-14.5) % Plt Count 96 L (130-400) K/uL MPV 11.4 (9.4-12.4) fL Sodium 136 (136-145) mmol/L Potassium 4.1 (3.5-5.1) mmol/L Chloride 105 (98-107) mmol/L Carbon Dioxide 26 (21-32) mmol/L Anion Gap 5 (3-11) BUN 27 H (6-23) mg/dl Creatinine 1.10 (0.6-1.4) mg/dl Est Cr Clr Drug Dosing 66.1 ml/min Est GFR ( Amer) 75.7 ml/min Est GFR (Non-Af Amer) 65.3 ml/min BUN/Creatinine Ratio 24.5 H (10-20) Glucose 105 H (70-99(Fasting)) mg/dl POC Glucose 119 H 121 H (70-99) mg/dl Calcium 8.2 L (8.6-10.3) mg/dl Magnesium 1.7 (1.7-2.4) mg/dl 09/24/23 09/24/23 Range/Units 15:54 11:02 WBC (4.8-10.8) K/ul RBC (4.70-6.10) M/uL Hgb (14.0-18.0) g/dl Hct (42.0-52.0) % MCV (80.0-100.0) fL MCH (25.0-34.0) pg MCHC (32.0-36.0) g/dL RDW Std Deviation (36.4-46.3) fL RDW Coeff of Bart (11.5-14.5) % Plt Count (130-400) K/uL MPV (9.4-12.4) fL Sodium (136-145) mmol/L Potassium (3.5-5.1) mmol/L Chloride (98-107) mmol/L Carbon Dioxide (21-32) mmol/L Anion Gap (3-11) BUN (6-23) mg/dl Creatinine (0.6-1.4) mg/dl Est Cr Clr Drug Dosing ml/min Est GFR ( Amer) ml/min Est GFR (Non-Af Amer) ml/min BUN/Creatinine Ratio (10-20) Glucose (70-99(Fasting)) mg/dl POC Glucose 102 H 198 H (70-99) mg/dl Calcium (8.6-10.3) mg/dl Magnesium (1.7-2.4) mg/dl
[2023-09-25 11:30] VITALS: PULSE 81; TEMP 97.7; O2SAT 95
[2023-09-25 11:46] VITALS: BP 98/60
[2023-09-25] MEDS: FUROSEMIDE 20 MG TAB PO ONE (11:50)
[2023-09-25] MEDS: SPIRONOLACTONE 12.5 MG TAB PO ONE (11:51)
--- NOTE | 2023-09-25 11:51 | Discharge Summary ---
Discharge Summary Date of Service date of admission - September 22, 2023 date of discharge - September 25, 2023 Principal Dx & Hospital Course #1 = Principal Diagnosis (1) Incarcerated umbilical hernia: Patient had presented with a SBO due to an incarcerated umbilical hernia. He was seen in consult by Dr Yuriy Carrasco, [facility] General Surgery, and on hospital day #1 underwent open umbilical hernia repair with reduction of small bowel and placement of a 6.4 cm circular dual mesh. All bowel was viable per surgery. His intra-op course was complicated by rapid a.fib and mild hypotension by anesthesia report. Post-op course was complicated by mild LAWRENCE. During the post-op course he began to pass flatus & stool. Pain was under good control by time of discharge. He was initiated on a clear liquid diet and this advanced to regular. He tolerated such without any difficulty. He was provided an abdominal binder brace and will continue this at home. Post-discharge instructions were provided by Dr Carrasco. He will follow-up with Dr Carrasoc within 2 weeks of discharge. (2) LAWRENCE (acute kidney injury): Peak Cr 1.59 Creatinine on day of discharge - 1.1 Etiology - likely pre-renal due to intra-op hypotension (briefly required pressors during surgery) Entresto was held during the stay and held at discharge Diuretics were initially held but then resumed later in the stay He should have a f/u BMP within a week of discharge to ensure stability He will continue to HOLD his Entresto upon discharge; he has a f/u appt with Dr Bang Hagan, Cardiology, on Thursday09/28/23 - Entresto can be resumed then if BP allows and labs are stable (3) Small bowel obstruction: 2nd to #1 - resolved, s/p umbilical hernia repair & reduction of small bowel see #1 above (4) Permanent atrial fibrillation with rapid ventricular response: had rapid a.fib around the time of his surgery and shortly after surgery rates improved as we gradually reintroduced his beta vanessa therapy rates were excellent in the 24 hours leading up to discharge he was on heparin drip post-surgery, but later resumed on his typical Eliquis at discharge he will remain on - * metoprolol succinate 100mg BID * Eliquis 5mg BID (5) Sleep apnea: cont CPAP as previous (6) Ischemic cardiomyopathy: EF 30-35% follows with Dr Mikhail Hagan - [facility] Cardiology he may have had very mild decompensation as a result of his LAWRENCE in the setting of IV fluid administration for his surgery by discharge he only had mild edema of his ankles/feet; he had no obvious pulmonary edema while here hold Entresto at discharge all of his other typical CHF meds, however, will be continued including metoprolol succinate BID, lasix 40mg daily, aldactone 12.5mg daily he will continue daily weight checks at home, salt restriction, etc (7) CAD (coronary artery disease): no ischemic symptoms while hospitalized (8) Chronic systolic (congestive) heart failure: EF 30-35% see above (9) Hypertension: BPs stable/controlled throughout the stay with most systolic readings 90s to low 100s by report he had mild intra-op hypotension but he did not have such on the floor (10) Type 2 diabetes mellitus: Hba1c 6.6% resume Victoza at discharge stop Toujeo at this time Plan seen by PT/OT - fidel pompa, cleared for home Notes For Next Care Provider Repeat BMP within 5-7 days of discharge advised due to recent LAWRENCE Medication Changes From Visit HOLD ENTRESTO until seen by cardiology, Dr Bang Hagan, on 09/28/23 Admission HPI Per Admitting Provider The patient is a 77-year-old male with a past medical history putting diabetic peripheral neuropathy, permanent atrial fibrillation with history of RVR on chronic anticoagulation, cerebral vascular malformation, 4th nerve palsy, ischemic cardiomyopathy, hypercholesterolemia, CAD, chronic systolic CHF, status post CABG, status post ligation of left atrial appendage, hypertension, and diabetes mellitus. The patient presents to the emergency department with acute onset of severe abdominal pain, nausea and vomiting, and inability to hold food or liquids down. Discharge Exam gen - looks well; sitting in chair; NAD neck - no JVD sitting upright at 90 degrees mouth - MMM heart - rate <100 bpm, irregularly irregular, s1 s2, no murmur lungs - decreased BS bases, no rales, no wheeze; no increased work of breathing abd - abd binder in place; this was removed; umbilical incision clean/dry; no tenderness; BS+; nondistended ext - trace-1+ edema b/l feet only, pulses 1-2+ b/l psych - a/o x 3 Discharge Plan Discharge Items Patient Disposition: Home - Self-Care Reason For Visit: INCARCERATED UMBILICAL HERNIA Discharge Diagnosis: 1. Incarcerated umbilical hernia with resulting small bowel obstruction - resolved via surgery by Dr Yuriy Carrasco 2. Umbilical hernia repair 3. Acute kidney injury - resolved 4. Chronic systolic congestive heart failure 5. Atrial fibrillation 6. Type 2 diabetes Activity: Per Instructions section Lifting: No more than 10 pounds Non-emergency contact: Primary Care Provider, Surgeon and [employer] Call non-emergency contact if: you have any medication questions, your symptoms worsen, your pain is not controlled, your pain is worsening, you have a fever, your wound has increased redness, your wound has increased drainage and your wound pain has increased Follow-up/Referrals: Matteo Young MD [Primary Care Provider] - 10/08/23 10:30 am (PCP follow up: 10/08/23 @10:30am with Bekah DAVIS) Bang Hagan MD [Physician] - 09/28/23 Yuriy Carrasco MD [Physician] - (Please call office to see Dr. Carrasco in 2 weeks) Diet: Carb Consistent or DM2 and Low Sodium (2gm) Fluids: 1800ml (7 cups) Addtl Attending Provider Instructions: Mr Tran, You were hospitalized due to having a small bowel obstruction from an incarcerated umbilical hernia. This means that a loop of small intestine got stuck in the umbilical hernia which then led to the obstruction/blockage. You were seen by general surgery and on 09/22/23 you underwent umbilical hernia repair and reduction of the small bowel blockage by Dr Yuriy Carrasco. You overall did very well during your hospitalization. You had some minor problems initially with your a.fib being a bit too fast but this has settled down nicely and your heart rates are under excellent control at this time. You also had a rise in your creatinine (kidney level) - also known as "acute kidney injury" - but this has resolved as well. Recommendations - 1. see the dedicated "post-surgical discharge instructions" from Dr Carrasco regarding lifting restrictions/activity restrictions, abdominal binder use, inc ision care/bathing, etc. 2. HOLD your Entresto until you see Dr Hagan this coming Thursday. 3. resume checking your weight on a daily basis. Check upon arrival home today and then every morning thereafter. Write these weights down and show these to Dr Hagan at your upcoming appointment. 4. the oxycodone pain killer medicine may cause you to have constipation. If you have to take oxycodone be sure to take something for your bowels. You may need 1 or more of the following if you take oxycodone - * miralax 1 serving daily and/or * senna 2 tablets daily and/or * colace 1 tablet twice daily 5. the oxycodone has tylenol (acetaminophen) in it. If you decide to take the pain killer oxycodone please do not take extra [id number] tylenol at the same time. The maximum recommended amount of tylenol in a 24-hour period is 3000mg. 6. follow-up - see separate section. 7. ok to stop your Toujeo. 8. ok to resume your Victoza this weekend. Return to [facility] if - * you have fever over 100 degrees * you have any concerns about your umbilical hernia incision * you have worsening shortness of breath * you have chest pains * you develop severe diarrhea * any other concerns Best wishes for a speedy recovery! -Dr Artemio Busby Soil Analyst Provider Instructions: Post-Surgical ~Discharge Instructions Activity Recommendations: - lifting limitation: (10 pounds for 6 weeks), - exercise/sex/sports limit: (nonstrenuous for 6 weeks), - driving or machine use limit: (none for 1 week or until pain free and no longer taking narcotic pain medication), - Shower/bathe limit: (may shower, no submerging incision underwater for 2 weeks) Diet: - Resume previous diet SPECIAL CARE INSTRUCTIONS: - May shower.. Let water run over area and pat dry. - Leave surgical glue on incision, this will fall off on its own. - Wear abdominal binder daily for support and compression. - Call the surgeon's office with any questions or concerns - - (ex. temperature higher than 101 degrees F, excessive bleeding or pain). MEDICATIONS: - Resume previous medications unless instructed otherwise by your surgeon. - 650 mg Tylenol every 6 hours as needed for mild to moderate pain - Percocet 1 every 6 hours, as needed for moderate to severe pain - recommend daily stool softener (Colace) while taking narcotic pain medication to prevent constipation or straining. Drink plenty of water daily. FOLLOW UP VISIT: - If not already scheduled, please call the office to schedule a two week follow-up appointment. Office number Pending Studies at Discharge: No Stand-Alone Forms: My [facility], Smoking Cessation Medications and DC Order Prescriptions: New oxycodone-acetaminophen 5-325 mg tablet 1 tab PO Q6H PRN (Reason: pain) Qty: 5 0RF Continued Eliquis 5 mg tablet 5 mg PO BID Qty: 180 3RF atorvastatin 40 mg tablet 40 mg PO QDL Qty: 90 3RF spironolactone 25 mg tablet 12.5 mg PO DAILY Qty: 30 2RF metoprolol succinate [Toprol XL] 100 mg tablet extended release 24 hr 100 mg PO BID Qty: 180 3RF triamcinolone acetonide 0.1 % ointment 1 applic TOP DAILY PRN (Reason: ud) Rx Instructions: Apply to both arms once daily multivitamin Tablet 1 tab PO QDL liraglutide [Victoza 2-Fady] 0.6 mg/0.1 mL (18 mg/3 mL) Pen Injector 1.2 mg SUBCUT DAILY Changed furosemide [Lasix] 20 mg tablet 40 mg PO QAM Qty: 1 0RF Held sildenafil 100 mg tablet 100 mg PO DAILY PRN (Reason: sexual activity) Qty: 10 2RF Hold Instructions: hold until the surgeon allows you to return to sexual activity Rx Instructions: administer 30 minutes to 4 hours before activity Entresto 49-51 mg tablet 1 tab PO BID Qty: 180 3RF Hold Instructions: express scripts error Discontinued insulin glargine U-300 conc [Toujeo SoloStar U-300 Insulin] 300 unit/mL (1.5 mL) insulin pen 0 unit SUBCUT DAILY Rx Instructions: PT FORGETS DOSE. Discharge Orders: Discharge Order (Routine); Ordered 09/25/23 Ordered By: Alex Ulloa Admission Data Admit Date/Time: 09/22/23 02:04 Attending Provider: Alex Ulloa Admit Provider: Ren Jasso Primary Care Provider: Matteo Young Other Providers: Ren Jasso; Yuriy Carrasco Other Interventions: Discharge Summary Assessment (RN) Last Done: 09/25/23 11:44 Hospital Stay Data Consultations General Surgery PT, OT Procedures Performed Operation Date: 09/22/23 08:00 Actual Procedures Incarcerated Umbilical Hernia Repair with mesh - Yuriy Carrasco MD Diagnostic Imagining Performed Abdomen/Pelvis CT 09/22/23 00:18 CR Exam(s): CT ABDOMEN + PELVIS With Contrast IV Amt: 93 ml optiray 320 EXAM: CT Abdomen and Pelvis With Intravenous Contrast CLINICAL HISTORY: Reason for exam: severe pain, n/v, hernia, ? strangulated/sbo. TECHNIQUE: Axial computed tomography images of the abdomen and pelvis with intravenous contrast. CTDI is 28.14 mGy and DLP is 1415.4 mGy-cm. Automated exposure control was utilized for the study. A dose lowering technique was utilized adhering to the principles of ALARA. CONTRAST: Patient received 93 ml optiray 320 of IV contrast COMPARISON: 09/03/22 FINDINGS: Lung bases: Unremarkable. No mass. No consolidation. ABDOMEN: Liver: Unremarkable. No mass. Gallbladder and bile ducts: Cholecystectomy. No ductal dilation. Pancreas: Unremarkable. No mass. No ductal dilation. Spleen: Unremarkable. No splenomegaly. Adrenals: Unremarkable. No mass. Kidneys and ureters: Symmetric renal enhancement. No hydronephrosis. Small simple left kidney upper pole cyst; no follow-up indicated. Stomach and bowel: Dilated, fluid-filled loop of small bowel incarcerated within an umbilical hernia. Ascites within the hernia sac. High-grade upstream small bowel obstruction with dilated loops measuring up to 4 cm. Diverticulosis without diverticulitis. PELVIS: Appendix: No evidence of appendicitis. Bladder: Unremarkable. No mass. Reproductive: Unremarkable. ABDOMEN and PELVIS: Intraperitoneal space: Mesenteric edema. Trace ascites within the abdomen. No free air. Bones/joints: Degenerative changes of the spine and left hip. Right total hip arthroplasty. No acute fracture or dislocation. Soft tissues: Umbilical hernia with incarcerated small bowel loop resulting in closed loop small bowel obstruction. Fat-containing left inguinal hernia. Vasculature: Coronary artery atherosclerosis. Aortoiliac atherosclerosis without aortic aneurysm. 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 Lymph nodes: Unremarkable. No enlarged lymph nodes. IMPRESSION: 1. Dilated, fluid-filled loop of small bowel incarcerated within an umbilical hernia. Ascites within the hernia sac. High-grade upstream small bowel obstruction with dilated loops measuring up to 4 cm. Appearance technically represent a closed loop obstruction. Surgical consultation recommended. 2. 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 Communications: Verify Receipt Electronically signed by: Sean Chakraborty M.D. 09/22/23 01:08 AM Pending Results Patient Have Any Pending Studies at Discharge: No Discharge Instructions Given to Patient (Per Discharging Provider) Mr Tran, Jose were hospitalized due to having a small bowel obstruction from an incarcerated umbilical hernia. This means that a loop of small intestine got stuck in the umbilical hernia which then led to the obstruction/blockage. You were seen by general surgery and on 09/22/23 you underwent umbilical hernia repair and reduction of the small bowel blockage by Dr Yuriy Carrasco. You overall did very well during your hospitalization. You had some minor problems initially with your a.fib being a bit too fast but this has settled down nicely and your heart rates are under excellent control at this time. You also had a rise in your creatinine (kidney level) - also known as "acute kidney injury" - but this has resolved as well. Recommendations - 1. see the dedicated "post-surgical discharge instructions" from Dr Carrasco regarding lifting restrictions/activity restrictions, abdominal binder use, incision care/bathing, etc. 2. HOLD your Entresto until you see Dr Hagan this coming Thursday. 3. resume checking your weight on a daily basis. Check upon arrival home today and then every morning thereafter. Write these weights down and show these to Dr Hagan at your upcoming appointment. 4. the oxycodone pain killer medicine may cause you to have constipation. If you have to take oxycodone be sure to take something for your bowels. You may need 1 or more of the following if you take oxycodone - * miralax 1 serving daily and/or * senna 2 tablets daily and/or * colace 1 tablet twice daily 5. the oxycodone has tylenol (acetaminophen) in it. If you decide to take the pain killer oxycodone please do not take extra elko-crq-qwprsos tylenol at the same time. The maximum recommended amount of tylenol in a 24-hour period is 3000mg. 6. follow-up - see separate section. 7. ok to stop your Toujeo. 8. ok to resume your Victoza this weekend. Return to [facility] if - * you have fever over 100 degrees * you have any concerns about your umbilical hernia incision * you have worsening shortness of breath * you have chest pains * you develop severe diarrhea * any other concerns Best wishes for a speedy recovery! -Dr Ulloa Total Time Total Time Spent Total Time Spent (In Minutes): 45 Coding Level of Care Code 57255 INP/OBS DISCH >30 MIN Diagnoses Incarcerated umbilical hernia K42.0 LAWRENCE (acute kidney injury) N17.9 Small bowel obstruction K56.609 Permanent atrial fibrillation with rapid ventricular response I48.21 Sleep apnea G47.30 Ischemic cardiomyopathy I25.5 CAD (coronary artery disease) I25.10 Chronic systolic (congestive) heart failure I50.22 Hypertension I10 Type 2 diabetes mellitus E11.9
== END 2023-09-25 12:39 | disposition home or self-care (01) | DRG 330 ==
LOC: ED 00:05 → 2E 02:04 → SUATTDRO 02:04 → 2E 02:29
DX: K42.0 Umbilical hernia with obstruction, without gangrene; Z79.01 Long term (current) use of anticoagulants; I11.0 Hypertensive heart disease with heart failure; N17.9 Acute kidney failure, unspecified; I48.21 Permanent atrial fibrillation; E11.40 Type 2 diabetes mellitus with diabetic neuropathy, unspecified; I25.10 Atherosclerotic heart disease of native coronary artery without angina pectoris; H49.10 Fourth [trochlear] nerve palsy, unspecified eye; Q04.8 Other specified congenital malformations of brain; Z79.4 Long term (current) use of insulin; I25.5 Ischemic cardiomyopathy; E11.319 Type 2 diabetes mellitus with unspecified diabetic retinopathy without macular edema; Z88.8 Allergy status to other drugs, medicaments and biological substances; I50.22 Chronic systolic (congestive) heart failure